=== PATIENT | female | born 1960 | race Caucasian/White ===

== ENCOUNTER 2017-03-28 19:04 | Emergency (ER) | payer BC ==
[2014-08-09 06:16] VITALS: BMI 32.2
[~2017-03-28 19:04] MED LIST: ALLEGRA-D1 TAB.SR . PO; GABAPENTIN100 MG PO; IBUPROFEN800 MG PO; LISINOPRIL-HCTZ1 T11 PO; MULTIPLE VITAMI1 TA1 PO; OMEGA-3100 MG PO; PRILOSEC20 MG PO; ULTRAM50 MG PO; VALIUM5 MG PO; VITAMIN C1000 MG PO; WELLBUTRIN SR150 MG PO
[2017-03-28 20:06] LABS: BASOPHILS 0.4 % (0-2); EOSINOPHILS 1.9 % (0-7); HEMATOCRIT 38.6 % (36.0-48.0); HEMOGLOBIN 12.5 g/dL (12-16); IMMATURE GRANULOCYTES 0.3 % (0-5); LYMPHOCYTES 36.9 % (15-50); MCH 29.5 pg (26.0-34.0); MCHC 32.4 g/dL (31.0-37.0); MEAN PLATELET VOLUME 9.4 fL (7.4-10.4); MONOCYTES 7.2 % (2-11); NEUTROPHILS 53.3 % (40-80); PLATELET COUNT 282 10x3/uL (130-400); RBC 4.24 10x6/uL (4.00-5.40); RDW 12.9 % (11.5-14.5); WBC 10.3 10x3/uL (4.8-10.8)
[2017-03-28 20:21] LABS: ALBUMIN 3.4 g/dL (3.4-5.0); ALKALINE PHOSPHATASE 126 U/L (46-116); ALT (SGPT) 33 U/L (10-68); BILIRUBIN - TOTAL 0.48 mg/dL (0.2-1.3); CALC OSMOLALITY 283 mosm/kg (275-300); CALCIUM 9.9 mg/dL (8.5-10.1); CARBON DIOXIDE 29.2 mmol/L (21.0-32.0); CHLORIDE - SERUM 106 mmol/L (98-107); CREATININE - SERUM 0.8 mg/dL (0.6-1.3); GLUCOSE 97 mg/dL (74-106); POTASSIUM - SERUM 4.1 mmol/L (3.5-5.1); PROTEIN - SERUM 7.5 g/dL (6.4-8.2); SODIUM 143 mmol/L (136-145); UREA NITROGEN 9 mg/dL (7-18); eGFR NON AFRICAN AMERICAN 78 mL/min (90-120)
[2017-03-28 20:21] LABS: APPEARANCE CLEAR (CLEAR); BILIRUBIN NEGATIVE (NEGATIVE); COLOR YELLOW (YELLOW); GLUCOSE NEGATIVE (NEGATIVE); KETONE NEGATIVE (NEGATIVE); NITRITE NEGATIVE (NEGATIVE); PROTEIN NEGATIVE (NEGATIVE); SPECIFIC GRAVITY 1.015 (1.005-1.020); UROBILINOGEN NORMAL (NORMAL)
[2017-03-28 20:24] LABS: BACTERIA FEW /hpf (NONE SEEN); EPITHELIAL CELLS 0-5 /hpf (0-5); RED CELLS - URINE 0-5 /hpf (0-5)
[2017-03-28 20:25] LABS: CALCIUM OXALATE CRYSTALS 0-5 /hpf (NONE SEEN)
== END 2017-03-28 22:06 | disposition home or self-care (01) ==
LOC: D.ER 19:04
PROVIDERS: Emergency Medicine
DX: N39.0 Urinary tract infection, site not specified (principal); J06.9 Acute upper respiratory infection, unspecified; K21.9 Gastro-esophageal reflux disease without esophagitis

== ENCOUNTER 2017-06-02 19:15 | Emergency (ER) | payer BC ==
[2014-08-09 06:16] VITALS: BMI 32.2
[2017-06-02 20:48] LABS: APPEARANCE CLEAR (CLEAR); BILIRUBIN NEGATIVE (NEGATIVE); COLOR YELLOW (YELLOW); GLUCOSE NEGATIVE (NEGATIVE); KETONE NEGATIVE (NEGATIVE); NITRITE NEGATIVE (NEGATIVE); PROTEIN NEGATIVE (NEGATIVE); UROBILINOGEN NORMAL (NORMAL)
[2017-06-02 20:53] LABS: BACTERIA FEW /hpf (NONE SEEN); EPITHELIAL CELLS 0-5 /hpf (0-5); RED CELLS - URINE 0-5 /hpf (0-5)
== END 2017-06-02 21:10 | disposition home or self-care (01) ==
LOC: D.ER 19:15
PROVIDERS: Emergency Medicine
DX: M54.5 Low back pain (principal); M62.838 Other muscle spasm; N39.0 Urinary tract infection, site not specified; K21.9 Gastro-esophageal reflux disease without esophagitis

== ENCOUNTER 2019-05-28 17:28 | Emergency (ER) | payer BC ==
[2019-05-28 17:32] VITALS: Ht 167.6 cm
[2019-05-28] MEDS ORDERED: PROTONIX40 MG PO (17:33)
[2019-05-28] MEDS ORDERED: CELEXA40 MG PO (17:34)
[2019-05-28] MEDS ORDERED: CECLOR250 MG PO (17:34)
[2019-05-28 18:14] LABS: APPEARANCE CLEAR (CLEAR); BILIRUBIN NEGATIVE (NEGATIVE); COLOR YELLOW (YELLOW); GLUCOSE NEGATIVE (NEGATIVE); KETONE NEGATIVE (NEGATIVE); NITRITE NEGATIVE (NEGATIVE); PROTEIN 1+ mg/dL (NEGATIVE); UROBILINOGEN NORMAL (NORMAL)
[2019-05-28 18:16] LABS: BACTERIA FEW /hpf (NEGATIVE); EPITHELIAL CELLS 0-5 /hpf (0-5); RED CELLS - URINE OCC /hpf (0-5)
[2019-05-28 18:31] LABS: BASOPHILS 0.2 % (0-2); EOSINOPHILS 2.1 % (0-7); HEMATOCRIT 40.2 % (36.0-48.0); HEMOGLOBIN 12.7 g/dL (12-16); IMMATURE GRANULOCYTES 0.3 % (0-5); LYMPHOCYTES 21.5 % (15-50); MCH 28.8 pg (26.0-34.0); MCHC 31.6 g/dL (31.0-37.0); MCV 91.2 fL (80.0-100.0); MEAN PLATELET VOLUME 9.1 fL (7.4-10.4); MONOCYTES 7.1 % (2-11); NEUTROPHILS 68.8 % (40-80); PLATELET COUNT 327 10x3/uL (130-400); RBC 4.41 10x6/uL (4.00-5.40); RDW 13.2 % (11.5-14.5); WBC 15.5 10x3/uL (4.8-10.8)
[2019-05-28 18:44] LABS: CALC OSMOLALITY 278 mosm/kg (275-300); CALCIUM 10.2 mg/dL (8.5-10.1); CARBON DIOXIDE 29.9 mmol/L (21.0-32.0); CHLORIDE - SERUM 104 mmol/L (98-107); CREATININE - SERUM 0.8 mg/dL (0.6-1.3); GLUCOSE 99 mg/dL (74-106); POTASSIUM - SERUM 3.9 mmol/L (3.5-5.1); SODIUM 139 mmol/L (136-145); UREA NITROGEN 15 mg/dL (7-18); eGFR NON AFRICAN AMERICAN 77 mL/min (90-120)
[2019-05-28 18:50] LABS: ALBUMIN 3.5 g/dL (3.4-5.0); ALKALINE PHOSPHATASE 107 U/L (46-116); ALT (SGPT) 21 U/L (10-68); BILIRUBIN - TOTAL 0.35 mg/dL (0.2-1.3); PROTEIN - SERUM 7.5 g/dL (6.4-8.2)
[2019-05-28] MEDS ORDERED: PROBIOTIC1 EAC1 PO (21:14)
[2019-05-28] MEDS ORDERED: FLAGYL500 MG PO (21:14)
[2019-05-28] MEDS ORDERED: LEVOFLOXACIN500 MG PO (21:14)
[2019-05-28] MEDS ORDERED: TORADOL10 MG PO (21:15)
[2019-05-28 22:11] VITALS: BP 140/60
== END 2019-05-28 22:11 | disposition home or self-care (01) ==
LOC: D.ER 17:28
PROVIDERS: Family Medicine
DX: K57.92 Diverticulitis of intestine, part unspecified, without perforation or abscess without bleeding (principal); N39.0 Urinary tract infection, site not specified; I10 Essential (primary) hypertension

== ENCOUNTER 2019-09-02 16:59 | Emergency (ER) | payer BC ==
[~2019-09-02] VITALS: Ht 167.6 cm; Wt 98.6 kg
[~2019-09-02 16:59] MED LIST changes: +CECLOR250 MG PO; +CELEXA40 MG PO; +FLAGYL500 MG PO; +LEVOFLOXACIN500 MG PO; +PROBIOTIC1 EAC1 PO; +PROTONIX40 MG PO; +TORADOL10 MG PO
[2019-09-02 17:04] VITALS: Ht 167.6 cm; Wt 98.6 kg
[2019-09-02 17:17] LABS: BILIRUBIN NEGATIVE (NEGATIVE); GLUCOSE NEGATIVE (NEGATIVE); KETONE NEGATIVE (NEGATIVE); NITRITE NEGATIVE (NEGATIVE); UROBILINOGEN NORMAL (NORMAL)
[2019-09-02 17:20] LABS: EPITHELIAL CELLS 0-5 /hpf (0-5); RED CELLS - URINE 25-50 /hpf (0-5)
[2019-09-02 17:21] LABS: BACTERIA MODERATE /hpf (NEGATIVE); YEAST RARE /hpf (NONE SEEN)
[2019-09-02 17:26] LABS: BASOPHILS 0.2 % (0-2); EOSINOPHILS 2.4 % (0-7); HEMATOCRIT 43.5 % (36.0-48.0); HEMOGLOBIN 13.6 g/dL (12-16); IMMATURE GRANULOCYTES 0.2 % (0-5); MCH 29.2 pg (26.0-34.0); MCHC 31.3 g/dL (31.0-37.0); MCV 93.3 fL (80.0-100.0); MEAN PLATELET VOLUME 9.5 fL (7.4-10.4); MONOCYTES 6.3 % (2-11); NEUTROPHILS 62.9 % (40-80); PLATELET COUNT 338 10x3/uL (130-400); RBC 4.66 10x6/uL (4.00-5.40); RDW 13.3 % (11.5-14.5); WBC 12.1 10x3/uL (4.8-10.8)
[2019-09-02 17:53] LABS: ANION GAP 9.2 mmol/L (8-16); CALCIUM 10.1 mg/dL (8.5-10.1); CARBON DIOXIDE 31.6 mmol/L (21.0-32.0); CREATININE - SERUM 0.9 mg/dL (0.6-1.3); POTASSIUM - SERUM 3.8 mmol/L (3.5-5.1)
[2019-09-02 18:00] LABS: ALBUMIN 3.8 g/dL (3.4-5.0); BILIRUBIN - TOTAL 0.35 mg/dL (0.2-1.3); PROTEIN - SERUM 7.9 g/dL (6.4-8.2)
[2019-09-02 20:20] VITALS: BP 184/76
== END 2019-09-02 20:20 | disposition other institution (70) ==
LOC: D.ER 16:59
PROVIDERS: Emergency Medicine
DX: N20.0 Calculus of kidney (principal); N13.30 Unspecified hydronephrosis; N39.0 Urinary tract infection, site not specified; I10 Essential (primary) hypertension; K21.9 Gastro-esophageal reflux disease without esophagitis

== ENCOUNTER 2020-02-09 20:02 | Inpatient (IN) | payer BC ==
[~2020-02-09] VITALS: Ht 167.6 cm; Wt 95.7 kg
[2020-02-09 20:43] LABS: BASOPHILS 0.2 % (0-2); EOSINOPHILS 0 % (0-7); HEMATOCRIT 41.8 % (36.0-48.0); IMMATURE GRANULOCYTES 0.3 % (0-5); LYMPHOCYTES 21.4 % (15-50); MCH 28.3 pg (26.0-34.0); MCHC 31.1 g/dL (31.0-37.0); MCV 90.9 fL (80.0-100.0); MEAN PLATELET VOLUME 9.1 fL (7.4-10.4); MONOCYTES 5.7 % (2-11); NEUTROPHILS 72.4 % (40-80); RDW 13.5 % (11.5-14.5); WBC 6.2 10x3/uL (4.8-10.8)
[2020-02-09 20:57] LABS: CALC OSMOLALITY 275 mosm/kg (275-300); CALCIUM 8.5 mg/dL (8.5-10.1); CHLORIDE - SERUM 102 mmol/L (98-107); CREATININE - SERUM 1.1 mg/dL (0.6-1.3); GLUCOSE 101 mg/dL (74-106); PLATELET COUNT 209 10x3/uL (130-400); POTASSIUM - SERUM 3.7 mmol/L (3.5-5.1); SODIUM 137 mmol/L (136-145); UREA NITROGEN 17 mg/dL (7-18); eGFR NON AFRICAN AMERICAN 53 mL/min (90-120)
[2020-02-09 21:01] LABS: APTT 30.9 SECONDS (22.8-39.4); INR 1.03 (0.85-1.17); PROTIME 13.4 SECONDS (11.6-15.0)
[2020-02-09 21:13] LABS: ALBUMIN 3.1 g/dL (3.4-5.0); ALKALINE PHOSPHATASE 68 U/L (30-120); ALT (SGPT) 20 U/L (10-68); BILIRUBIN - TOTAL 0.52 mg/dL (0.2-1.3); CREATINE KINASE 41 UL (21-215); PRO BNP 27 pg/mL (0-125); PROTEIN - SERUM 6.8 g/dL (6.4-8.2); TROPONIN-I < 0.017 ng/mL (0.000-0.060)
[2020-02-09 21:27] VITALS: BP 107/46
--- NOTE | 2020-02-09 21:45 | NUR ---
PT'S IV ROCEPHIN FINISHED AT THIS TIME.
[2020-02-09 22:52] VITALS: BP 124/69; BMI 35.1
[2020-02-09 23:00] VITALS: BP 110/67
--- NOTE | 2020-02-09 23:00 | NUR ---
2229-ARRIVED VIA STRECTHER WITH ER NURSE. ADMISSION COMPLETED. O2 AT 8 L HIGH FLOW NC. SAT AT 88%. INCREASED O2 TO 10 L, SAT CAME UP TO 92%.
[2020-02-10] VITALS (24 sets, daily range): BP systolic 107–148; BP diastolic 50–88; Ht 167.6 cm; Wt 95.7 kg
[2020-02-10 03:58] LABS: BASOPHILS 0 % (0-2); EOSINOPHILS 0 % (0-7); HEMATOCRIT 38.8 % (36.0-48.0); HEMOGLOBIN 12.2 g/dL (12-16); LYMPHOCYTES 21.3 % (15-50); MCH 28.4 pg (26.0-34.0); MCHC 31.4 g/dL (31.0-37.0); MCV 90.4 fL (80.0-100.0); MONOCYTES 1.9 % (2-11); NEUTROPHILS 76.8 % (40-80); PLATELET COUNT 221 10x3/uL (130-400); RBC 4.29 10x6/uL (4.00-5.40); RDW 13.5 % (11.5-14.5); WBC 4.8 10x3/uL (4.8-10.8)
[2020-02-10] MEDS ORDERED: PEPCID40 MG PO (04:45)
[2020-02-10 04:48] LABS: ALBUMIN 2.7 g/dL (3.4-5.0); ANION GAP 11.5 mmol/L (8-16); BILIRUBIN - DIRECT 0.13 mg/dL (0.00-0.30); BILIRUBIN - INDIRECT 0.26 mg/dL (0.00-1.00); BILIRUBIN - TOTAL 0.39 mg/dL (0.2-1.3); CALCIUM 9.1 mg/dL (8.5-10.1); CARBON DIOXIDE 28.3 mmol/L (21.0-32.0); MAGNESIUM - SERUM 2.4 mg/dL (1.8-2.4); PHOSPHOROUS 3.1 mg/dL (2.5-4.9); POTASSIUM - SERUM 3.8 mmol/L (3.5-5.1); PROTEIN - SERUM 6.8 g/dL (6.4-8.2)
--- NOTE | 2020-02-10 06:15 | NUR ---
PIV PULLED OUT BY PATIENT. TIP INTACT. NEW PIV 20 G TO UPPER LEFT ARM X 1 ATTEMPT.
[2020-02-10 10:12] LABS: C-REACTIVE PROTEIN 11.8 mg/dL (0.0-0.9)
--- NOTE | 2020-02-10 18:43 | NUR ---
PATIENT RECEIVED 2 UNITS COVID PLASMA. TODAY. PATIENT DOES DE SAT WHEN SHE EATS, MOVES OR TALKS. DOWN TO 85%. WILL RECOOP TO 90%. PATIENT STILL ON 100% VAPO THERM. STATES SHE IS BREATHING BETTER. ATE ONE JELLO. OFERED A REGULAR DIET, STATES SHE CAN NOT EAT RIGHT NOW.
[2020-02-11] VITALS (24 sets, daily range): BP systolic 104–153; BP diastolic 52–79
--- NOTE | 2020-02-11 00:43 | NUR ---
2129- PATIENT DESAT TO 87-88%. C/O FEELING "TIRED" AND "WORN OUT." OBTAIN ABG. NOTIFIED DR. YU AND NEW ORDERS REC'D FOR BIPAP. PLACED ON BIPAP. CALLED , SERGEI GREEN, AND UPDATE HIM. LEFT MESSAGE FOR ELANA GREEN, SON, BUT NO RETURN CALL.
--- NOTE | 2020-02-11 05:07 | NUR ---
0430- SON, ELANA, CALLED FOR UPDATE. UPDATE GIVEN
[2020-02-11 06:05] LABS: BASOPHILS 0 % (0-2); EOSINOPHILS 0 % (0-7); HEMATOCRIT 37.7 % (36.0-48.0); HEMOGLOBIN 11.7 g/dL (12-16); IMMATURE GRANULOCYTES 0.3 % (0-5); LYMPHOCYTES 13.3 % (15-50); MCV 90.2 fL (80.0-100.0); MEAN PLATELET VOLUME 9.6 fL (7.4-10.4); MONOCYTES 4.9 % (2-11); NEUTROPHILS 81.5 % (40-80); RBC 4.18 10x6/uL (4.00-5.40); RDW 13.4 % (11.5-14.5)
[2020-02-11 06:10] LABS: PLATELET COUNT 271 10x3/uL (130-400); WBC 10.2 10x3/uL (4.8-10.8)
[2020-02-11 06:29] LABS: ALBUMIN 2.7 g/dL (3.4-5.0); ANION GAP 9.5 mmol/L (8-16); BILIRUBIN - DIRECT 0.13 mg/dL (0.00-0.30); BILIRUBIN - INDIRECT 0.3 mg/dL (0.00-1.00); BILIRUBIN - TOTAL 0.43 mg/dL (0.2-1.3); CALCIUM 9.5 mg/dL (8.5-10.1); CARBON DIOXIDE 28.9 mmol/L (21.0-32.0); CREATININE - SERUM 0.9 mg/dL (0.6-1.3); MAGNESIUM - SERUM 2.1 mg/dL (1.8-2.4); PHOSPHOROUS 2.8 mg/dL (2.5-4.9); POTASSIUM - SERUM 3.4 mmol/L (3.5-5.1); PROTEIN - SERUM 6.7 g/dL (6.4-8.2)
[2020-02-11 07:02] LABS: BILIRUBIN NEGATIVE (NEGATIVE); KETONE NEGATIVE (NEGATIVE); NITRITE NEGATIVE (NEGATIVE); UROBILINOGEN NORMAL (NORMAL)
[2020-02-11 07:03] LABS: BACTERIA FEW /hpf (NONE SEEN); WHITE CELLS - URINE 0-5 /hpf (0-5); YEAST <1+ /hpf (NONE SEEN)
--- NOTE | 2020-02-11 14:01 | NUR ---
DR. YU NOTIFIED OF BLOOD GAS RESULTS ORDERS RECEIVED TO INTUBATE, ALLISON CENTRAL LINE. SON DISCUSS WITH PATIENT
--- NOTE | 2020-02-11 14:40 | NUR ---
NOTIFIED OF BLOOD GAS RESULTS. DR. GERARDO HERE AFTER CONSENT RECEIVED FROM PATIENT PATIENT INTUBATED ANDPLACED ON VENT. PULSE OX IN 70'S AFTER INTUBATION. DR. YU NOTIFIED. RESP THERAPY 40SEC OF 40 PEEP, AND 30 SEC OF 30 PEEP TRYING TO INCREASE PULSE OX. PULSE DID COME UP INTO 90'S BUT RETURN TO 80'S. DR. GERARDO INSERTED CENTRAL LINE LEFT SUBCLAVIAN WITH MINIMAL DIFFICULTY. PLACEMENT CONFIRMED WITH CHEST X-RAY. ALLISON INSERTED LEFT RADIAL GOOD WAVE FORM. PRESSURE FAIRLY CLOSE TO CUFF. OG INSERTED WITHOUT DIFFICULTY, CONFIRMED PLACEMENT PER CHEST X-RAY.
--- NOTE | 2020-02-11 15:21 | NUR ---
STAT CHEST XR ORDERED PER DR GERARDO FOR INTUBATION.
--- NOTE | 2020-02-11 16:00 | NUR ---
CALLED WITH BLOOD GAS RESULTS. PATIENT STILL REQUURING 30 SEC OF 30 PEEP TO KEEP PULSE OX ABOVE 80%. FENTANYL GTT AT 200 MCG AND HOUR. DIPRIVAN AT 40 MCG/KG/MIN. HEAD OF BED ELEVATED 45 DEGREES. BILATERAL LUNGS EQUAL BUT CONGESTED. SON ELANA GIVEN UPDATE. NEW ORDERS RECEIVED FOR DECADRON AND LOVENOX. DR. YU TALKED WITH RESP THERAPY
--- NOTE | 2020-02-11 17:30 | NUR ---
CONTINUE TO HAVE LOW PULSE OX, BLOOD GAS AND CHEST X-RAY RESULTS CALLED TO DR. YU. ORDERS FOR VECURONIUM GTT RECEIVED AND LASIX. PHARMACY CALLED FOR CONCENTRATION MIX. VECURONIUM STARTED AT 1 MCG/KG/MIN. NERUO SENSOR APPLIED, 1 OF 4 AND 2 OUT OF 4 TWITCHES FROM EYES RECEIVED.
--- NOTE | 2020-02-11 18:30 | NUR ---
3 OUT OF 4 TWITCHES AND 2 OUR OF TWITCHES RECEIVED. PATIENT VECURONIUM TURNED UP TO 1.5 MCG/KG/MIN. PATIENT PULSE UP 88-89%. SON ELANA HAS TALKED WITH DR. YU. PATIENT URINE 250 ML OUT LAST HOUR.
--- NOTE | 2020-02-11 19:33 | NUR ---
DR. YU CALLED. UPDATE GIVEN
[2020-02-12] VITALS (23 sets, daily range): BP systolic 98–137; BP diastolic 51–90
--- NOTE | 2020-02-12 00:57 | NUR ---
DR. YU CALLED FOR UPDATE WITH NEW ORDERS APPROX [address] YU NOTIFIED OF RESULTS. NEW ORDERS REC'D. VECURONIUM TITRATED DOWN 2 TIMES (SEE FLOWSHEET) WITH TRAIN OF FOUR AT 0/4 BOTH TIMES
[2020-02-12 06:41] LABS: BASOPHILS 0.2 % (0-2); EOSINOPHILS 0.2 % (0-7); HEMATOCRIT 36.6 % (36.0-48.0); HEMOGLOBIN 11.1 g/dL (12-16); IMMATURE GRANULOCYTES 0.6 % (0-5); LYMPHOCYTES 11.5 % (15-50); MCHC 30.3 g/dL (31.0-37.0); MEAN PLATELET VOLUME 9.5 fL (7.4-10.4); MONOCYTES 7.4 % (2-11); NEUTROPHILS 80.1 % (40-80); PLATELET COUNT 290 10x3/uL (130-400); RBC 3.97 10x6/uL (4.00-5.40); RDW 13.5 % (11.5-14.5)
[2020-02-12 06:45] LABS: ALBUMIN 2.6 g/dL (3.4-5.0); BILIRUBIN - DIRECT 0.2 mg/dL (0.00-0.30); BILIRUBIN - INDIRECT 0.27 mg/dL (0.00-1.00); BILIRUBIN - TOTAL 0.47 mg/dL (0.2-1.3); C-REACTIVE PROTEIN 7.1 mg/dL (0.0-0.9); CALCIUM 9.1 mg/dL (8.5-10.1); CARBON DIOXIDE 27.9 mmol/L (21.0-32.0); MAGNESIUM - SERUM 2.5 mg/dL (1.8-2.4); POTASSIUM - SERUM 3.9 mmol/L (3.5-5.1); PROTEIN - SERUM 6.6 g/dL (6.4-8.2)
[2020-02-12 06:47] LABS: PHOSPHOROUS 4.3 mg/dL (2.5-4.9)
[2020-02-12 07:07] LABS: MCV 92.2 fL (80.0-100.0); WBC 6.5 10x3/uL (4.8-10.8)
--- NOTE | 2020-02-12 10:57 | NUR ---
MICHELLE SAEZ [phone] [facility] OKAYED WITH ARABELLA TRAVIS TO SPEAK WITH MRS SAEZ AND GIVE HER INFORMATION. UPDATED ON PT CONDITION AND DATE OF ADMISSION. ANSWERED QUESTIONS. WILL CONTINUE TO MONITOR
--- NOTE | 2020-02-12 13:20 | NUR ---
Nutrition follow-up: Pt remains intubated; propofol infusing @ 24.9 ml/hr Vecuronium in use but dose titrating down Labs reviewed Wt: 212# OGT in place; pt remains NPO at this time Recommend starting Pulmocare @ 25 ml/hr with increase to goal rate of 40 ml/hr with 25 ml H2O flush q hour RDN following.
[2020-02-12 20:58] LABS: CKMB 3.5 U/L (0.0-3.6); CREATINE KINASE 343 UL (21-215)
[2020-02-12 20:59] LABS: TROPONIN-I < 0.017 ng/mL (0.000-0.060)
[2020-02-13] VITALS (24 sets, daily range): BP systolic 90–144; BP diastolic 34–78
[2020-02-13 06:10] LABS: BASOPHILS 0.1 % (0-2); EOSINOPHILS 0 % (0-7); HEMOGLOBIN 10.9 g/dL (12-16); IMMATURE GRANULOCYTES 0.6 % (0-5); LYMPHOCYTES 13.7 % (15-50); MCH 27.7 pg (26.0-34.0); MCHC 30.3 g/dL (31.0-37.0); MCV 91.6 fL (80.0-100.0); MEAN PLATELET VOLUME 9.9 fL (7.4-10.4); NEUTROPHILS 78.6 % (40-80); PLATELET COUNT 315 10x3/uL (130-400); RBC 3.93 10x6/uL (4.00-5.40); RDW 13.5 % (11.5-14.5); WBC 6.8 10x3/uL (4.8-10.8)
[2020-02-13 06:37] LABS: ALBUMIN 2.4 g/dL (3.4-5.0); ALKALINE PHOSPHATASE 54 U/L (30-120); BILIRUBIN - INDIRECT 0.28 mg/dL (0.00-1.00); BILIRUBIN - TOTAL 0.38 mg/dL (0.2-1.3); CALC OSMOLALITY 293 mosm/kg (275-300); CALCIUM 9.2 mg/dL (8.5-10.1); CARBON DIOXIDE 29.4 mmol/L (21.0-32.0); CHLORIDE - SERUM 107 mmol/L (98-107); CREATININE - SERUM 0.8 mg/dL (0.6-1.3); GLUCOSE 164 mg/dL (74-106); MAGNESIUM - SERUM 2.7 mg/dL (1.8-2.4); PROTEIN - SERUM 6.3 g/dL (6.4-8.2); SODIUM 143 mmol/L (136-145); UREA NITROGEN 26 mg/dL (7-18); eGFR NON AFRICAN AMERICAN 77 mL/min (90-120)
[2020-02-13 06:42] LABS: ALT (SGPT) 16 U/L (10-68); PHOSPHOROUS 3.2 mg/dL (2.5-4.9)
--- NOTE | 2020-02-13 10:30 | NUR ---
STARTED TUBE FEEDINGS ON PT. PULMOCARE AT 10CC/HR. WILL CHECK RESIDUALS IN 6 HOURS.
--- NOTE | 2020-02-13 17:45 | NUR ---
TUBE FEEDINGS STOPPED DUE TO HIGH RESIDUALS. WILL CONTINUE TO MONITOR
[2020-02-14] VITALS (24 sets, daily range): BP systolic 101–142; BP diastolic 43–72
[2020-02-14 05:08] LABS: ALBUMIN 2.2 g/dL (3.4-5.0); ALKALINE PHOSPHATASE 49 U/L (30-120); BILIRUBIN - TOTAL 0.28 mg/dL (0.2-1.3); CALC OSMOLALITY 292 mosm/kg (275-300); CALCIUM 8.8 mg/dL (8.5-10.1); CARBON DIOXIDE 28.5 mmol/L (21.0-32.0); CHLORIDE - SERUM 109 mmol/L (98-107); CREATININE - SERUM 0.7 mg/dL (0.6-1.3); GLUCOSE 162 mg/dL (74-106); MAGNESIUM - SERUM 2.5 mg/dL (1.8-2.4); PHOSPHOROUS 2.8 mg/dL (2.5-4.9); POTASSIUM - SERUM 4.2 mmol/L (3.5-5.1); PROTEIN - SERUM 5.9 g/dL (6.4-8.2); SODIUM 143 mmol/L (136-145); UREA NITROGEN 24 mg/dL (7-18); eGFR NON AFRICAN AMERICAN 90 mL/min (90-120)
[2020-02-14 05:20] LABS: ALT (SGPT) 31 U/L (10-68)
[2020-02-14 05:45] LABS: BASOPHILS 0.2 % (0-2); EOSINOPHILS 0 % (0-7); HEMATOCRIT 34.8 % (36.0-48.0); HEMOGLOBIN 10.6 g/dL (12-16); IMMATURE GRANULOCYTES 0.8 % (0-5); LYMPHOCYTES 7.8 % (15-50); MCHC 30.5 g/dL (31.0-37.0); MCV 92.1 fL (80.0-100.0); MONOCYTES 7.1 % (2-11); NEUTROPHILS 84.1 % (40-80); PLATELET COUNT 320 10x3/uL (130-400); RBC 3.78 10x6/uL (4.00-5.40); RDW 13.6 % (11.5-14.5)
[2020-02-14 05:46] LABS: WBC 9.9 10x3/uL (4.8-10.8)
--- NOTE | 2020-02-14 07:58 | EC ---
PATIENT:DENNIS GREEN DATE OF SERVICE: 02/09/20 SEX: F MEDICAL RECORD: [id number] DATE OF : 56 LOCATION:[place] [address] AGE OF PATIENT: 59 ADMISSION DATE: 02/09/20 REFERRING PHYSICIAN: INTERPRETING PHYSICIAN: BRANDEE RANGEL MD ECHOCARDIOGRAM REPORT ECHO CHARGES 4 ECHO COMPLETE Date: 02/11/20 CLINICAL DIAGNOSIS: ARDS ECHOCARDIOGRAPHIC MEASUREMENTS (adult normal given) AC root (d.<3.7cm) 3.2 cm LV Septum d (<1.2 cm> 1.6 cm Valve Excursion 1.8 cm LV Septum (systole) 2.4 cm Left Atria (s.<4.0cm> 4.3 cm LVPW d(<1.2cm) 1.5 cm RV (d.<2.3cm) 2.8 cm LVPW (sytole) 2.0 cm LV diastole(<5.6CM) 4.5 cm MV E-F(>70mm/sec) cm LV systole 2.0 cm LVOT Diameter 1.9 cm MV exc.(>10mm) cm Est.ejection fraction (50-75%) % DOPPLER: LVIT cm/sec A 43.0 cm/sec E 62.0 cm/sec LA cm/sec RVSP 31.0 mmHg LVOT 137 cm/sec AOP1/2T m/s Asc. Ao 174 cm/sec RVOT 61.0 cm/sec RA cm/sec PA 114 cm/sec AV Gradient Peak 12.1 mmHg AV Mean 5.6 mmHg AV Area 2.2 cm MV Gradient Peak 2.1 mmHg MV Mean 0.67 mmHg MV Area cm COMMENTS: Grinder Operator Surface Tool: Nakul RENEEOE Demolitionist: 3 Dr. Tejada TAPE# PACS Pericardial Effusion N DATE OF SERVICE: Adequate 2D, color flow imaging, spectral Doppler, and M-Mode. LVH is present. LV internal dimension is normal. Wall motion is normal. EF is greater than or equal to 55%. Aortic valve is tricuspid. No evidence of stenosis by Doppler interrogation. Left atrium is dilated at 4.3 cm. Mitral valve shows no prolapse. Trivial MR. Right-sided chambers are grossly normal. Trivial TR. ECHOCARDIOGRAM REPORT [id number] DENNIS GREEN TRANSINT:[id number] Voice Confirmation ID: [id number] DOCUMENT ID: [id number] BRANDEE RANGEL MD at 0758 CC: [id number] DICTATION DATE: 02/12/20 1014 EARTH MOVING MACHINE OPERATOR: 02/12/20 1116 ADM IN [facility] [address] [place] [id number]
--- NOTE | 2020-02-14 13:33 | NUR ---
Nutrition follow-up: Pt intubated, sedated with propofol @ 14.9 ml/hr and vecuronium Pulmocare on hold 2/2 high residuals with no BM per Imelda RN Labs reviewed Wt: 223# Recommend starting Reglan and restarting TF @ 10 ml/hr with very slow increase to goal rate of 40 ml/hr May need to consider starting ProcalAmine PPN @ 75 ml/hr along with trickle tube feeds while pt on vecuronium RDN following.
[2020-02-15] VITALS (24 sets, daily range): BP systolic 96–134; BP diastolic 42–69
[2020-02-15 03:47] LABS: BASOPHILS 0.1 % (0-2); EOSINOPHILS 0 % (0-7); HEMATOCRIT 34.3 % (36.0-48.0); HEMOGLOBIN 10.4 g/dL (12-16); IMMATURE GRANULOCYTES 0.9 % (0-5); LYMPHOCYTES 5.5 % (15-50); MCH 27.8 pg (26.0-34.0); MCHC 30.3 g/dL (31.0-37.0); MCV 91.7 fL (80.0-100.0); MEAN PLATELET VOLUME 9.6 fL (7.4-10.4); MONOCYTES 7.4 % (2-11); NEUTROPHILS 86.1 % (40-80); PLATELET COUNT 337 10x3/uL (130-400); RBC 3.74 10x6/uL (4.00-5.40); RDW 13.2 % (11.5-14.5); WBC 11.3 10x3/uL (4.8-10.8)
[2020-02-15 04:00] LABS: CALC OSMOLALITY 289 mosm/kg (275-300); CALCIUM 8.9 mg/dL (8.5-10.1); CARBON DIOXIDE 31.2 mmol/L (21.0-32.0); CHLORIDE - SERUM 105 mmol/L (98-107); CREATININE - SERUM 0.6 mg/dL (0.6-1.3); GLUCOSE 167 mg/dL (74-106); POTASSIUM - SERUM 4.1 mmol/L (3.5-5.1); SODIUM 142 mmol/L (136-145); UREA NITROGEN 21 mg/dL (7-18); eGFR NON AFRICAN AMERICAN > 90 mL/min (90-120)
--- NOTE | 2020-02-15 06:38 | NUR ---
Pt resting in bed with no acute distress noted. Pt was turned and positioned for comfort throughout the night.
[2020-02-16] VITALS (23 sets, daily range): BP systolic 97–142; BP diastolic 39–63
[2020-02-16 06:23] LABS: ALKALINE PHOSPHATASE 46 U/L (30-120); ALT (SGPT) 28 U/L (10-68); BILIRUBIN - TOTAL 0.59 mg/dL (0.2-1.3); CALC OSMOLALITY 286 mosm/kg (275-300); CALCIUM 9.1 mg/dL (8.5-10.1); CARBON DIOXIDE 30.2 mmol/L (21.0-32.0); CHLORIDE - SERUM 106 mmol/L (98-107); CREATININE - SERUM 0.7 mg/dL (0.6-1.3); GLUCOSE 162 mg/dL (74-106); PROTEIN - SERUM 5.7 g/dL (6.4-8.2); SODIUM 140 mmol/L (136-145); UREA NITROGEN 24 mg/dL (7-18); eGFR NON AFRICAN AMERICAN 90 mL/min (90-120)
[2020-02-16 06:58] LABS: HEMATOCRIT 31.6 % (36.0-48.0); HEMOGLOBIN 9.9 g/dL (12-16); LYMPHOCYTES 4.3 % (15-50); MCH 28.6 pg (26.0-34.0); MCHC 31.3 g/dL (31.0-37.0); MCV 91.3 fL (80.0-100.0); NEUTROPHILS 91.6 % (40-80); PLATELET COUNT 328 10x3/uL (130-400); RBC 3.46 10x6/uL (4.00-5.40); RDW 12.2 % (11.5-14.5); WBC 12.1 10x3/uL (4.8-10.8)
--- NOTE | 2020-02-16 09:10 | NUR ---
INCREASE 02 80%
--- NOTE | 2020-02-16 09:55 | NUR ---
spoke with family
--- NOTE | 2020-02-16 11:01 | NUR ---
Nutrition follow-up: Now in ICU from [facility] Pt in bed with BIPAP in place Diet: ADA consistent CHO; po intake poor at this time Labs reviewed Wt: 170# Will need nutrition support started within 24 hours if po intake remains poor. RDN following.
--- NOTE | 2020-02-16 11:04 | NUR ---
Nutrition follow-up: Remains intubated, sedated with propofol @ 19.9 ml/hr Vecuronium still in use Pulmocare @ 10 ml/hr; reglan started Still with no BM per nurse Labs reviewed Wt: 222# RDN following.
--- NOTE | 2020-02-16 11:41 | NUR ---
family called. passcode provided
--- NOTE | 2020-02-16 12:13 | NUR ---
stop vanc per dr garcia
--- NOTE | 2020-02-16 16:10 | MORECARE ---
CASE MANAGEMENT DISCHARGE SUMMARY PATIENT: DENNIS KHAN UNIT: [id number] ADM DATE: 02/09/20 AGE: 59 : 56 SEX: F ROOM/BED: D.2314 AUTHOR: RICKY,DOC PHYSICIAN: REFERRING PHYSICIAN: URBANO EDDY DO DATE OF SERVICE: 02/16/20 Discharge Plan Patient Name: DENNIS KHAN Facility: [facility]:[place] : 1960 Planned Disposition: Anticipated Discharge Date: Discharge Date: Expected LOS: Initial Reviewer: [email or web address] Initial Review Date: 02/09/2020 Generated: 02/16/20 5:09 pm Comments DCP- Discharge Planning Updated by [email or web address]: Tamela Smith on 02/16/20 3:[address] CM contacted spouse, Tyrell Yoon @[phone], to discuss initial DC planning. Spouse is in agreement to proceed with the assessment. Patient is currently sedated and intubated on a mechanical vent. Per patient's spouse, patient lives independently in her home, with him. 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 Pharmacy: [facility], [place]. HHS: No. DME: None. Emergency contact: Tyrell Yoon and (son) Salazar Yoon #[phone]. Patient is Independent with all ADL's, medication management REGIONAL TRAINER. CM discussed the availability of HH, Rehab, SNF, OP Therapy, DME services. Patient would benefit from Rehab or HHS upon DC. Spouse agrees to Rehab prior to returning home, if needed. Spouse denies hospitalization within the past 30 days. Spouse denies the use of community resources REGIONAL TRAINER. Transportation at time of discharge: Spouse or son. CM will follow and assist PRN with DC needs/plans. DCPIA - Discharge Planning Initial Assessment Updated by [email or web address]: Tamela Smith on 02/16/20 4:05 pm * Is the patient Alert and Oriented? No * How many steps to enter\exit or inside your home? * PCP Unknown at present * Pharmacy [facility], [place] * Preadmission Environment Home with Family * ADLs Independent * Equipment None * Other Equipment NA * List name and contact numbers for known caregivers / representatives who currently or will assist patient after discharge: Tyrell Yoon (spouse) [phone] Salazar Khan (son) [phone] * Verbal permission to speak to the caregivers and representatives has been obtained from the patient. N/A * Community resources currently utilized None * Please name any agencies selected above. NA * Additional services required to return to the preadmission environment? Yes * Can the patient safely return to the preadmission environment? Yes * Has this patient been hospitalized within the prior 30 days at any hospital? No Patient Name: DENNIS KHAN Page [phone] at 1610 All edits/amendments must be made on the electronic document DICTATION DATE: 02/16/201609 SEISMIC PROSPECTING OBSERVER: SHELBY 02/16/20 161 RPT#: [id number] DC DATE: STATUS: ADM IN [facility] [address] [place] [address] END OF REPORT
--- NOTE | 2020-02-16 17:44 | MORECARE ---
CASE MANAGEMENT DISCHARGE SUMMARY PATIENT: DENNIS KHAN UNIT: [id number] ADM DATE: 02/09/20 AGE: 59 : 56 SEX: F ROOM/BED: D.2314 AUTHOR: RICKY,DOC PHYSICIAN: REFERRING PHYSICIAN: URBANO EDDY DO DATE OF SERVICE: 02/16/20 Discharge Plan Patient Name: DENNIS KHAN Facility: [facility]:[place] : 1960 Planned Disposition: Anticipated Discharge Date: Discharge Date: Expected LOS: Initial Reviewer: [email or web address] Initial Review Date: 02/09/2020 Generated: 02/16/20 6:44 pm Comments DCP- Discharge Planning Updated by [email or web address]: Tamela Smith on 02/16/20 3:[address] CM contacted spouse, Tyrell Yoon @[phone], to discuss initial DC planning. Spouse is in agreement to proceed with the assessment. Patient is currently sedated and intubated on a mechanical vent. Per patient's spouse, patient lives independently in her home, with him. 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 Pharmacy: [facility], [place]. HHS: No. DME: None. Emergency contact: Tyrell Yoon and (son) Salazar Yoon #[phone]. Patient is Independent with all ADL's, medication management FILM PRODUCER. CM discussed the availability of HH, Rehab, SNF, OP Therapy, DME services. Patient would benefit from Rehab or HHS upon DC. Spouse agrees to Rehab prior to returning home, if needed. Spouse denies hospitalization within the past 30 days. Spouse denies the use of community resources FILM PRODUCER. Transportation at time of discharge: Spouse or son. CM will follow and assist PRN with DC needs/plans. DCPIA - Discharge Planning Initial Assessment Updated by [email or web address]: Tamela Smith on 02/16/20 4:05 pm * Is the patient Alert and Oriented? No * How many steps to enter\exit or inside your home? * PCP Unknown at present * Pharmacy [facility], [place] * Preadmission Environment Home with Family * ADLs Independent * Equipment None * Other Equipment NA * List name and contact numbers for known caregivers / representatives who currently or will assist patient after discharge: Tyrell Yoon (spouse) [phone] Salazar Khan (son) [phone] * Verbal permission to speak to the caregivers and representatives has been obtained from the patient. N/A * Community resources currently utilized None * Please name any agencies selected above. NA * Additional services required to return to the preadmission environment? Yes * Can the patient safely return to the preadmission environment? Yes * Has this patient been hospitalized within the prior 30 days at any hospital? No Last DP export: 02/16/20 3:10 pm Patient Name: DENNIS KHAN Page [phone] at 1744 All edits/amendments must be made on the electronic document DICTATION DATE: 02/16/201743 FOOD INSPECTOR: SHELBY 02/16/201743 RPT#: [id number] DC DATE: STATUS: ADM IN [facility] [address] [place] [address] END OF REPORT
[2020-02-17] VITALS (23 sets, daily range): BP systolic 94–161; BP diastolic 46–74
[2020-02-17 08:38] LABS: ALBUMIN 1.9 g/dL (3.4-5.0); ALKALINE PHOSPHATASE 42 U/L (30-120); ALT (SGPT) 27 U/L (10-68); BILIRUBIN - TOTAL 0.54 mg/dL (0.2-1.3); CALC OSMOLALITY 292 mosm/kg (275-300); CALCIUM 9.1 mg/dL (8.5-10.1); CARBON DIOXIDE 30.7 mmol/L (21.0-32.0); CHLORIDE - SERUM 106 mmol/L (98-107); CREATININE - SERUM 0.5 mg/dL (0.6-1.3); GLUCOSE 165 mg/dL (74-106); POTASSIUM - SERUM 4.4 mmol/L (3.5-5.1); PROTEIN - SERUM 5.2 g/dL (6.4-8.2); SODIUM 143 mmol/L (136-145); UREA NITROGEN 23 mg/dL (7-18); eGFR NON AFRICAN AMERICAN > 90 mL/min (90-120)
[2020-02-17 08:51] LABS: BASOPHILS 0 % (0-2); EOSINOPHILS 0 % (0-7); HEMOGLOBIN 9.9 g/dL (12-16); LYMPHOCYTES 6.4 % (15-50); MCH 27.9 pg (26.0-34.0); MONOCYTES 2.7 % (2-11); NEUTROPHILS 89.9 % (40-80); PLATELET COUNT 344 10x3/uL (130-400); RBC 3.55 10x6/uL (4.00-5.40); RDW 13.2 % (11.5-14.5); WBC 11.9 10x3/uL (4.8-10.8)
--- NOTE | 2020-02-17 15:50 | NUR ---
HIBCLENS BATH GIVEN. MEDIPLEX ON COCCYX AND BUTTOCK REMOVED. OPEN AREA NOTED ON LEFT BUTTOCK, CLEAN WITH SOAP AND WATER. NEW MEDIPLEX APPLIED. PAITNET TOLERATED WELL. IN CRACK OF COCCYX BRUSIING NOTED. PATIENT OPENS EYES TO MINIMAL STIMULATION. NOT OBEYING COMMANDS. WILL BLINK EYES. JUST STARRING OUT IN SPACE. ORTIZ CATH PATENT. RESIDUAL CHECK LESS THAN 10CC NOTED. TUBE FEEDING TURNED UP TO 20 ML HOUR. MONITOR SB INTO 30'S FREQ .HEEL PROTECTORS APPLIED PREVENTIVE. HEELS BRIDGED ON PILLOW. ARMS ELEVATED ON PILLOWS DUE TO SWELLING. ALLISON PATENT LEFT RADIAL. CENTRAL LINE DRESSING DRY AND INTACT.
--- NOTE | 2020-02-17 18:10 | NUR ---
SUCTIONED MODERATE AMOUNT THICK YELLOW SPUTUM FROM ETT X 3.
--- NOTE | 2020-02-17 19:45 | NUR ---
PTS SON HERE UPDATE GIVEN
[2020-02-18] VITALS (24 sets, daily range): BP systolic 94–162; BP diastolic 48–80
[2020-02-18 04:48] LABS: BASOPHILS 0.1 % (0-2); EOSINOPHILS 0 % (0-7); IMMATURE GRANULOCYTES 1.4 % (0-5); LYMPHOCYTES 4.1 % (15-50); MCH 28.3 pg (26.0-34.0); MCHC 29.8 g/dL (31.0-37.0); MEAN PLATELET VOLUME 9.9 fL (7.4-10.4); MONOCYTES 5.3 % (2-11); NEUTROPHILS 89.1 % (40-80); PLATELET COUNT 394 10x3/uL (130-400); RDW 13.4 % (11.5-14.5); WBC 13.4 10x3/uL (4.8-10.8)
[2020-02-18 04:49] LABS: RBC 2.47 10x6/uL (4.00-5.40)
[2020-02-18 04:50] LABS: HEMATOCRIT 23.5 % (36.0-48.0); MCV 95.1 fL (80.0-100.0)
[2020-02-18 04:53] LABS: CALC OSMOLALITY 290 mosm/kg (275-300); CALCIUM 9.5 mg/dL (8.5-10.1); CARBON DIOXIDE 31.9 mmol/L (21.0-32.0); CHLORIDE - SERUM 104 mmol/L (98-107); CREATININE - SERUM 0.6 mg/dL (0.6-1.3); GLUCOSE 183 mg/dL (74-106); POTASSIUM - SERUM 4.3 mmol/L (3.5-5.1); SODIUM 142 mmol/L (136-145); TRIGLYCERIDE 254 mg/dL (30-200); UREA NITROGEN 22 mg/dL (7-18); eGFR NON AFRICAN AMERICAN > 90 mL/min (90-120)
--- NOTE | 2020-02-18 07:00 | NUR ---
PAGED DR YADIRA PASCUAL TONGUE AND GROOVE MACHINE FEEDER GIVEN LAB RESULTS LOW HGB BCT
--- NOTE | 2020-02-18 07:11 | NUR ---
REPORT TO [facility] INFORMED OF LAB RESULTS AND LOW HGB AND HCT AND WAITING FOR [facility] TO CALL BACK
--- NOTE | 2020-02-18 16:19 | NUR ---
2ND UNIT OF BLOOD INFUSING WITHOUT REACTION.
[2020-02-18 18:00] LABS: HEMATOCRIT 38.4 % (36.0-48.0)
--- NOTE | 2020-02-18 22:53 | NUR ---
Pt resting in bed, no acute distress noted. Assessment per flow sheet, meds per MAR, will continue to monitor.
[2020-02-19] VITALS (23 sets, daily range): BP systolic 106–172; BP diastolic 49–86
[2020-02-19 05:11] LABS: BASOPHILS 0 % (0-2); EOSINOPHILS 0.1 % (0-7); HEMOGLOBIN 11.7 g/dL (12-16); LYMPHOCYTES 4.6 % (15-50); MCH 28.5 pg (26.0-34.0); MCHC 30.8 g/dL (31.0-37.0); MEAN PLATELET VOLUME 9.6 fL (7.4-10.4); MONOCYTES 6.9 % (2-11); NEUTROPHILS 87.4 % (40-80); RDW 13.9 % (11.5-14.5); WBC 13.6 10x3/uL (4.8-10.8)
[2020-02-19 05:25] LABS: APTT 24.3 SECONDS (22.8-39.4); INR 1.14 (0.85-1.17); PROTIME 14.5 SECONDS (11.6-15.0)
[2020-02-19 05:27] LABS: % SATURATION 14 % (15-55); IRON 34 ug/dl (35-150); TOTAL IRON BIND CAPACITY 240 ug/dl (260-445); UNSAT IRON BIND CAPACITY 206 ug/dl (150-375)
[2020-02-19 05:28] LABS: MCV 92.5 fL (80.0-100.0); PLATELET COUNT 292 10x3/uL (130-400); RBC 4.11 10x6/uL (4.00-5.40)
[2020-02-19 05:29] LABS: ALBUMIN 1.9 g/dL (3.4-5.0); ALKALINE PHOSPHATASE 54 U/L (30-120); BILIRUBIN - TOTAL 0.86 mg/dL (0.2-1.3); CALC OSMOLALITY 283 mosm/kg (275-300); CALCIUM 9.4 mg/dL (8.5-10.1); CARBON DIOXIDE 32.7 mmol/L (21.0-32.0); CHLORIDE - SERUM 103 mmol/L (98-107); CREATININE - SERUM 0.6 mg/dL (0.6-1.3); GLUCOSE 150 mg/dL (74-106); MAGNESIUM - SERUM 2.2 mg/dL (1.8-2.4); POTASSIUM - SERUM 4.2 mmol/L (3.5-5.1); PROTEIN - SERUM 5.9 g/dL (6.4-8.2); SODIUM 140 mmol/L (136-145); UREA NITROGEN 19 mg/dL (7-18); eGFR NON AFRICAN AMERICAN > 90 mL/min (90-120)
[2020-02-19 05:30] LABS: ALT (SGPT) 47 U/L (10-68)
--- NOTE | 2020-02-19 08:57 | NUR ---
Nutrition follow-up: Intubated, sedated with propofol @ 14.9 ml/hr Pulmocare @ 30 ml/hr Labs reviewed Vecuronium off Wt: 225# RDN following.
--- NOTE | 2020-02-19 09:18 | NUR ---
DR YU IN THE UNIT. SPOKE WITH ELANA, SON, VIA TELEPHONE. DECREASE FIO2 TO 60%.
[2020-02-19 10:06] LABS: HEMATOCRIT 38.9 % (36.0-48.0); HEMOGLOBIN 12.2 g/dL (12-16)
[2020-02-19 19:03] LABS: HEMATOCRIT 37.7 % (36.0-48.0); HEMOGLOBIN 11.8 g/dL (12-16)
[2020-02-20] VITALS (24 sets, daily range): BP systolic 99–148; BP diastolic 46–68
[2020-02-20 08:51] LABS: CALC OSMOLALITY 283 mosm/kg (275-300); CALCIUM 9.3 mg/dL (8.5-10.1); CARBON DIOXIDE 36.3 mmol/L (21.0-32.0); CHLORIDE - SERUM 101 mmol/L (98-107); CREATININE - SERUM 0.6 mg/dL (0.6-1.3); GLUCOSE 128 mg/dL (74-106); MAGNESIUM - SERUM 2.1 mg/dL (1.8-2.4); POTASSIUM - SERUM 3.7 mmol/L (3.5-5.1); SODIUM 140 mmol/L (136-145); UREA NITROGEN 21 mg/dL (7-18); eGFR NON AFRICAN AMERICAN > 90 mL/min (90-120)
[2020-02-20 09:39] LABS: BASOPHILS 0.1 % (0-2); EOSINOPHILS 0.4 % (0-7); HEMATOCRIT 34.5 % (36.0-48.0); HEMOGLOBIN 10.5 g/dL (12-16); IMMATURE GRANULOCYTES 0.4 % (0-5); LYMPHOCYTES 4.1 % (15-50); MCH 28.5 pg (26.0-34.0); MCHC 30.4 g/dL (31.0-37.0); MCV 93.5 fL (80.0-100.0); MEAN PLATELET VOLUME 10.2 fL (7.4-10.4); MONOCYTES 2.4 % (2-11); NEUTROPHILS 92.6 % (40-80); PLATELET COUNT 228 10x3/uL (130-400); RBC 3.69 10x6/uL (4.00-5.40); RDW 13.8 % (11.5-14.5); WBC 18.6 10x3/uL (4.8-10.8)
[2020-02-21] VITALS (24 sets, daily range): BP systolic 116–152; BP diastolic 50–82
--- NOTE | 2020-02-21 10:13 | NUR ---
Nutrition follow-up: Intubated, sedated; Fentanyl Pulmocare @ 30 ml/hr via OGT; has not advanced to goal since admit Labs reviewed Wt: 225# Recommend advancing to goal rate of 50 ml/hr RDN following.
[2020-02-22] VITALS (23 sets, daily range): BP systolic 108–139; BP diastolic 43–75
[2020-02-22 05:54] LABS: BASOPHILS 0.1 % (0-2); EOSINOPHILS 0 % (0-7); HEMATOCRIT 35.4 % (36.0-48.0); HEMOGLOBIN 10.9 g/dL (12-16); IMMATURE GRANULOCYTES 0.7 % (0-5); LYMPHOCYTES 3.1 % (15-50); MCH 29.1 pg (26.0-34.0); MCHC 30.8 g/dL (31.0-37.0); MCV 94.7 fL (80.0-100.0); MONOCYTES 5.5 % (2-11); NEUTROPHILS 90.6 % (40-80); RBC 3.74 10x6/uL (4.00-5.40); RDW 13.5 % (11.5-14.5); WBC 17.6 10x3/uL (4.8-10.8)
[2020-02-22 06:16] LABS: PLATELET COUNT 274 10x3/uL (130-400)
[2020-02-22 06:34] LABS: ALBUMIN 1.7 g/dL (3.4-5.0); ALKALINE PHOSPHATASE 95 U/L (30-120); ALT (SGPT) 39 U/L (10-68); BILIRUBIN - TOTAL 0.86 mg/dL (0.2-1.3); CALC OSMOLALITY 278 mosm/kg (275-300); CALCIUM 9.4 mg/dL (8.5-10.1); CARBON DIOXIDE 35.4 mmol/L (21.0-32.0); CHLORIDE - SERUM 100 mmol/L (98-107); CREATININE - SERUM 0.6 mg/dL (0.6-1.3); GLUCOSE 133 mg/dL (74-106); PROTEIN - SERUM 6.4 g/dL (6.4-8.2); SODIUM 137 mmol/L (136-145); UREA NITROGEN 22 mg/dL (7-18); eGFR NON AFRICAN AMERICAN > 90 mL/min (90-120)
[2020-02-22 06:35] LABS: POTASSIUM - SERUM 4.4 mmol/L (3.5-5.1)
[2020-02-23] VITALS (24 sets, daily range): BP systolic 111–143; BP diastolic 49–80
[2020-02-23 06:05] LABS: ALBUMIN 1.6 g/dL (3.4-5.0); ALKALINE PHOSPHATASE 95 U/L (30-120); BILIRUBIN - TOTAL 0.85 mg/dL (0.2-1.3); CALC OSMOLALITY 280 mosm/kg (275-300); CALCIUM 9.6 mg/dL (8.5-10.1); CARBON DIOXIDE 34.4 mmol/L (21.0-32.0); CHLORIDE - SERUM 100 mmol/L (98-107); CREATININE - SERUM 0.5 mg/dL (0.6-1.3); GLUCOSE 125 mg/dL (74-106); POTASSIUM - SERUM 4.4 mmol/L (3.5-5.1); PROTEIN - SERUM 6.3 g/dL (6.4-8.2); SODIUM 138 mmol/L (136-145); UREA NITROGEN 23 mg/dL (7-18); eGFR NON AFRICAN AMERICAN > 90 mL/min (90-120)
[2020-02-23 06:09] LABS: ALT (SGPT) 54 U/L (10-68)
[2020-02-23 07:34] LABS: BASOPHILS 0.1 % (0-2); EOSINOPHILS 0 % (0-7); HEMATOCRIT 33.8 % (36.0-48.0); HEMOGLOBIN 10.4 g/dL (12-16); IMMATURE GRANULOCYTES 0.5 % (0-5); LYMPHOCYTES 6.5 % (15-50); MCH 28.9 pg (26.0-34.0); MCHC 30.8 g/dL (31.0-37.0); MCV 93.9 fL (80.0-100.0); MEAN PLATELET VOLUME 9.3 fL (7.4-10.4); MONOCYTES 3.7 % (2-11); NEUTROPHILS 89.2 % (40-80); PLATELET COUNT 248 10x3/uL (130-400); RDW 13.4 % (11.5-14.5); WBC 14.3 10x3/uL (4.8-10.8)
--- NOTE | 2020-02-23 11:09 | NUR ---
Nutrition follow-up: Intubated, sedated; thick secretions per RT Pulmocare continues @ 30 ml/hr; goal rate 50 ml/hr Labs reviewed WT: 225# Possible bronch soon RDN following.
--- NOTE | 2020-02-23 19:00 | NUR ---
RECIVED REPORT AT THIS TIME. OBSERVED THAT PT IS ON DROPLET PERCAUTION INTUABTED/SEDATED. PT IS ROLLED TO RIGHT SIDE AT THIS TIME. VSS. RESTRAINTS OBSERVED, SEE FLOWSHEET. WILL PERFORM FULL ASESSMETN AND DOC IN FLOWSHEET. ORTIZ OBSERVED TO GRAVITY AND DRAINGAGE YELLOW URINE. BED IS LOW,SIDE RAISLX2,CALL LIGHT WITHIN REACH. WILL CONITNUE TO MONITOR
--- NOTE | 2020-02-23 19:50 | NUR ---
TURNED PTX2 ASSSIT TO LEFT SIDE USING POSITIONNG BLOCKS. LEFT ARM IS PROPED ON PILLOW FOR COMFORT. HEELS ARE BRIDGED ON BED WITH PILLOW AND HEEL PROTECTORS ARE ON. PT TOELRATED WELL AND OPENEING EYES WHEN CALLED NAME. VSS. PROVIDED ORAL CARE AT THIS TIME. RESTRAINTS WERE OBSERVED, WITH GOOD CAP REFILL LESS THAN 3 SECONDS TO BILAT EXTREMTIES AND WARM TO TOUCH. BED IS LEFT LOW,SIDE RAILSX2,CALL LIGHT WITHIN REACH. WILL CONTINUE TO MONITOR
[2020-02-24] VITALS (25 sets, daily range): BP systolic 115–165; BP diastolic 51–73
--- NOTE | 2020-02-24 00:30 | NUR ---
RECIVED AIR OVERLAY. ROLLED PT X2 ASSIST AND PUT AIR OVERLAY UNDER PT. SHE TOLERATED WELL. VSS. TURNED ON AND PROPED PT TO HER RIGHT SIDE AT THIS TIME. HEELS ARE BRIDGED OFF BED, HEEL PROTECTORS ARE ON. ORAL CARE PROVIDED. RESTRAINTS OBSERVED C WARM AND PINK EXTREMTIES. BED IS LEFT LOW,SIDE RIASLX2,CALL LIGHT WITHIN REACH. WILL CONITNUE TO MONITOR
[2020-02-24 05:30] LABS: BASOPHILS 0.1 % (0-2); EOSINOPHILS 0.1 % (0-7); HEMATOCRIT 31.7 % (36.0-48.0); HEMOGLOBIN 9.6 g/dL (12-16); IMMATURE GRANULOCYTES 0.6 % (0-5); LYMPHOCYTES 4.3 % (15-50); MCH 28.3 pg (26.0-34.0); MCHC 30.3 g/dL (31.0-37.0); MCV 93.5 fL (80.0-100.0); MEAN PLATELET VOLUME 9.3 fL (7.4-10.4); MONOCYTES 6.9 % (2-11); PLATELET COUNT 262 10x3/uL (130-400); RBC 3.39 10x6/uL (4.00-5.40); RDW 13.4 % (11.5-14.5); WBC 15.6 10x3/uL (4.8-10.8)
[2020-02-24 06:01] LABS: ALBUMIN 1.5 g/dL (3.4-5.0); ALKALINE PHOSPHATASE 84 U/L (30-120); ALT (SGPT) 58 U/L (10-68); BILIRUBIN - TOTAL 0.72 mg/dL (0.2-1.3); CALC OSMOLALITY 277 mosm/kg (275-300); CALCIUM 9.8 mg/dL (8.5-10.1); CARBON DIOXIDE 32.9 mmol/L (21.0-32.0); CHLORIDE - SERUM 99 mmol/L (98-107); CREATININE - SERUM 0.5 mg/dL (0.6-1.3); GLUCOSE 126 mg/dL (74-106); POTASSIUM - SERUM 4.4 mmol/L (3.5-5.1); PROTEIN - SERUM 5.9 g/dL (6.4-8.2); SODIUM 136 mmol/L (136-145); UREA NITROGEN 25 mg/dL (7-18); eGFR NON AFRICAN AMERICAN > 90 mL/min (90-120)
--- NOTE | 2020-02-24 07:10 | NUR ---
REPORT RECEIVED FROM OFF GOING NURSE AND PATIENT CARE ASSUMED BY TEAM NURSES MICHELLE EDWARD, RN AND MERCY ROBERTS RN. PATIENT LAYING IN BED ON RT SIDE WITH EYES CLOSED ON VENT AC RATE 22 FIO2 60 TV 500 PEEP 12. BP 132/84 RESP 19 HR 58 T99.2. PATIENT HAS VINCENZO SOFT WRIST RESTRAINTS ON , ORTIZ CATHETER IN PLACE DRAINING CLEAR YELLOW URINE, IV TO LSC INTACT AND INFUSING . WILL CONTINUE WITH PLAN OF CARE.SR UP X 2 BED IN LOW POSITION AND CALL LIGHT IN REACH.
[2020-02-24 17:05] LABS: MACROPHAGES BF 6 %; NEUT - BF 90 %
[2020-02-24 17:08] LABS: MACROPHAGES BF 7 %; NEUT - BF 89 %
--- NOTE | 2020-02-24 18:55 | NUR ---
YESSI BLANCAS RN AND MYSELF RECIVED REPROT ON PT. WE WILL BE CONDUCTING TEAM NURSING FOR THE REMAINDER OF SHIFT ON THIS PT. PT IS INTUABTED/SEDATED, VSS. ISOLATION DROPLET OBSERVED. RESTRAINTS OBSERVED, BILAT UPPER EXTREMTIES ARE PINK AND WARM. A-LINE OBSERVED IN LEFT RADIAL WRIST, C GOOD PLETH, L SUBCLAVING IS CDI, IV MEDS WILL DOC IN FLOWHSEET. ORTIZ OBSERVED HANGING TO GRAVITY WITH DARK YELLOW URINE. HEEL PROTECTORS ARE ON BILAT, SCD'S ON BILAT. WILL PERFORM FULL ASSESSMENT AND DOC IN FLOWSHEET. BED IS LOW,SIDE RAISLX2,CALL LIGHT WITHIN REACH. WILL CONITNUE TO [facility]
[2020-02-25] VITALS (24 sets, daily range): BP systolic 103–131; BP diastolic 40–58
[2020-02-25 04:06] LABS: BASOPHILS 0.1 % (0-2); EOSINOPHILS 0 % (0-7); HEMATOCRIT 32.3 % (36.0-48.0); HEMOGLOBIN 9.8 g/dL (12-16); IMMATURE GRANULOCYTES 1.2 % (0-5); LYMPHOCYTES 6.6 % (15-50); MCH 28.3 pg (26.0-34.0); MCHC 30.3 g/dL (31.0-37.0); MCV 93.4 fL (80.0-100.0); MEAN PLATELET VOLUME 9.3 fL (7.4-10.4); MONOCYTES 5.7 % (2-11); NEUTROPHILS 86.4 % (40-80); PLATELET COUNT 283 10x3/uL (130-400); RBC 3.46 10x6/uL (4.00-5.40); RDW 13.2 % (11.5-14.5); WBC 14.5 10x3/uL (4.8-10.8)
[2020-02-25 04:23] LABS: ALBUMIN 1.6 g/dL (3.4-5.0); ALKALINE PHOSPHATASE 98 U/L (30-120); ALT (SGPT) 72 U/L (10-68); CALC OSMOLALITY 270 mosm/kg (275-300); CALCIUM 9.4 mg/dL (8.5-10.1); CARBON DIOXIDE 35.9 mmol/L (21.0-32.0); CHLORIDE - SERUM 99 mmol/L (98-107); CREATININE - SERUM 0.5 mg/dL (0.6-1.3); GLUCOSE 115 mg/dL (74-106); POTASSIUM - SERUM 4.4 mmol/L (3.5-5.1); PROTEIN - SERUM 6.1 g/dL (6.4-8.2); SODIUM 134 mmol/L (136-145); UREA NITROGEN 19 mg/dL (7-18); VANCOMYCIN - TROUGH 32.9 ug/mL (10.0-20.0); eGFR NON AFRICAN AMERICAN > 90 mL/min (90-120)
--- NOTE | 2020-02-25 09:42 | NUR ---
0700 REPORT RECEIVED AND CARE ASSUMED OF PATIENT.. SEE FLOW SHEET FOR SHIFT ASSESMENT FINDINGS.. CARE GIVEN BY TEAM NURSING LYNN GARCIA RN AND MYSELF.. 0940 CXR DONE
[2020-02-26] VITALS (21 sets, daily range): BP systolic 107–152; BP diastolic 42–62
[2020-02-26 06:04] LABS: ALBUMIN 1.7 g/dL (3.4-5.0); ALKALINE PHOSPHATASE 92 U/L (30-120); ALT (SGPT) 78 U/L (10-68); BILIRUBIN - TOTAL 0.54 mg/dL (0.2-1.3); CALC OSMOLALITY 266 mosm/kg (275-300); CALCIUM 9.1 mg/dL (8.5-10.1); CARBON DIOXIDE 32.5 mmol/L (21.0-32.0); CHLORIDE - SERUM 97 mmol/L (98-107); CREATININE - SERUM 0.5 mg/dL (0.6-1.3); GLUCOSE 122 mg/dL (74-106); POTASSIUM - SERUM 4.4 mmol/L (3.5-5.1); PROTEIN - SERUM 6.3 g/dL (6.4-8.2); SODIUM 132 mmol/L (136-145); UREA NITROGEN 16 mg/dL (7-18); VANCOMYCIN - RANDOM 6.7 ug/mL (10.0-20.0); eGFR NON AFRICAN AMERICAN > 90 mL/min (90-120)
[2020-02-26 06:24] LABS: BASOPHILS 0.1 % (0-2); EOSINOPHILS 0 % (0-7); HEMATOCRIT 32.2 % (36.0-48.0); HEMOGLOBIN 9.7 g/dL (12-16); IMMATURE GRANULOCYTES 1.7 % (0-5); LYMPHOCYTES 9.3 % (15-50); MCH 28.2 pg (26.0-34.0); MCHC 30.1 g/dL (31.0-37.0); MCV 93.6 fL (80.0-100.0); MEAN PLATELET VOLUME 9.2 fL (7.4-10.4); NEUTROPHILS 82.9 % (40-80); PLATELET COUNT 300 10x3/uL (130-400); RBC 3.44 10x6/uL (4.00-5.40); RDW 13.5 % (11.5-14.5); WBC 14.1 10x3/uL (4.8-10.8)
--- NOTE | 2020-02-26 08:30 | NUR ---
UPDATED IN PERSON PATIENT SON ELANA GREEN AND UPDATED PATIENT REGGIE ON PHONE.
--- NOTE | 2020-02-26 09:15 | NUR ---
TEMP 101.4. MEDICATED PER MAR WITH TYLENOL PO.
--- NOTE | 2020-02-26 10:55 | NUR ---
REPORT RECEIVED FROM TOOL SPECIALIST AND PATIENT CARE ASSUMED. PATIENT LAYING IN BED ON RIGHT SIDE WITH EYES CLOSED ON VENT AC22 TV450 FIO2 60% PEEP 12. BP 114/52 HR 64 RESP 22 02SAT 98%. ART LINE TO RT RADIAL IV LSC ORTIZ INTACT DRAINING CLEAR YELLOW URINE. WILL CONTINUE WITH PLAN OF CARE. SR UP X 2 BED IN LOW POSITION AND CALL LIGHT IN REACH.
--- NOTE | 2020-02-26 13:12 | NUR ---
Nutrition follow-up: Pt remains intubated, sedated Pulmocare infusing @ 30 ml/hr via OGT Labs reviewed Recommend increasing TF to goal rate of 50 ml/hr RDN following.
[2020-02-27] VITALS (24 sets, daily range): BP systolic 101–139; BP diastolic 40–94
[2020-02-27 04:19] LABS: BASOPHILS 0.1 % (0-2); EOSINOPHILS 0 % (0-7); HEMATOCRIT 30.2 % (36.0-48.0); HEMOGLOBIN 9.4 g/dL (12-16); IMMATURE GRANULOCYTES 1.4 % (0-5); LYMPHOCYTES 9.5 % (15-50); MCH 28.7 pg (26.0-34.0); MCHC 31.1 g/dL (31.0-37.0); MCV 92.4 fL (80.0-100.0); MEAN PLATELET VOLUME 8.8 fL (7.4-10.4); MONOCYTES 3.6 % (2-11); NEUTROPHILS 85.4 % (40-80); PLATELET COUNT 291 10x3/uL (130-400); RBC 3.27 10x6/uL (4.00-5.40); RDW 13.2 % (11.5-14.5); WBC 14.6 10x3/uL (4.8-10.8)
[2020-02-27 04:41] LABS: ALBUMIN 1.7 g/dL (3.4-5.0); ALKALINE PHOSPHATASE 82 U/L (30-120); ALT (SGPT) 75 U/L (10-68); BILIRUBIN - TOTAL 0.74 mg/dL (0.2-1.3); CALC OSMOLALITY 266 mosm/kg (275-300); CALCIUM 8.9 mg/dL (8.5-10.1); CARBON DIOXIDE 35.6 mmol/L (21.0-32.0); CHLORIDE - SERUM 98 mmol/L (98-107); CREATININE - SERUM 0.4 mg/dL (0.6-1.3); GLUCOSE 120 mg/dL (74-106); PROTEIN - SERUM 5.9 g/dL (6.4-8.2); SODIUM 132 mmol/L (136-145); UREA NITROGEN 14 mg/dL (7-18); eGFR NON AFRICAN AMERICAN > 90 mL/min (90-120)
--- NOTE | 2020-02-27 09:38 | NUR ---
0700 REPORT RECEIVED AND CAREE ASSUMED OF PATIENT.. SEE FLOW SHEET FOR SHIFTT ASSESMENT FINDINGS.. CARE GIVEN BY TEAM NURSING LORI CASTELLANO RN AND MYSELF..
--- NOTE | 2020-02-27 19:00 | NUR ---
REPORT RECEIVED, PT SEDATED ON VENT. SOFT WRIST RESTRAINTS IN PLACE, ASSESSMENT COMPLETED, SEE FLOWSHEET. LT RADIAL A-LINE, LT SUBCLAVIAN CVL, SEE IV FLOWSHEET.
[2020-02-28] VITALS (24 sets, daily range): BP systolic 110–133; BP diastolic 49–69
--- NOTE | 2020-02-28 05:29 | NUR ---
PT VOMITED IN VENT CIRCUIT, CIRCUIT CHANGED.
[2020-02-28 05:39] LABS: BASOPHILS 0.1 % (0-2); EOSINOPHILS 0 % (0-7); HEMATOCRIT 32.4 % (36.0-48.0); HEMOGLOBIN 10.1 g/dL (12-16); IMMATURE GRANULOCYTES 1.4 % (0-5); LYMPHOCYTES 6.7 % (15-50); MCH 28.6 pg (26.0-34.0); MCHC 31.2 g/dL (31.0-37.0); MCV 91.8 fL (80.0-100.0); MEAN PLATELET VOLUME 8.9 fL (7.4-10.4); NEUTROPHILS 86.8 % (40-80); PLATELET COUNT 339 10x3/uL (130-400); RBC 3.53 10x6/uL (4.00-5.40); RDW 13.3 % (11.5-14.5); WBC 16.3 10x3/uL (4.8-10.8)
[2020-02-28 06:02] LABS: ALKALINE PHOSPHATASE 83 U/L (30-120); ALT (SGPT) 76 U/L (10-68); BILIRUBIN - TOTAL 0.83 mg/dL (0.2-1.3); CALC OSMOLALITY 261 mosm/kg (275-300); CALCIUM 9.5 mg/dL (8.5-10.1); CARBON DIOXIDE 33.3 mmol/L (21.0-32.0); CHLORIDE - SERUM 96 mmol/L (98-107); GLUCOSE 113 mg/dL (74-106); POTASSIUM - SERUM 3.9 mmol/L (3.5-5.1); PROTEIN - SERUM 6.6 g/dL (6.4-8.2); SODIUM 129 mmol/L (136-145); UREA NITROGEN 17 mg/dL (7-18)
[2020-02-28 06:03] LABS: CREATININE - SERUM 0.6 mg/dL (0.6-1.3)
[2020-02-28 06:04] LABS: eGFR NON AFRICAN AMERICAN > 90 mL/min (90-120)
--- NOTE | 2020-02-28 13:16 | NUR ---
Nutrition follow-up: Intubated, sedated Pulmocare off 2/2 pt vomiting last night labs reviewed Pt still with no BM charted Recommend restarting Pulmocare with gradual increase to 50 ml/hr Meds: reglan May need to add stool softener also RDN following.
[2020-02-28 15:13] LABS: FUNGUS STAIN Final report (())
--- NOTE | 2020-02-28 19:00 | NUR ---
PT SEDATED ON VENT, LT RADIAL A-LINE IN PLACE, LT SUBCLAVIAN CVL INFUSING, SEE IV FLOWSHEET. ASSESSMENT COMPLETED, SEE FLOWSHEET. WILL CONTINUE TO MONITOR.
[2020-02-29] VITALS (21 sets, daily range): BP systolic 109–167; BP diastolic 48–96
[2020-02-29 06:04] LABS: BASOPHILS 0.1 % (0-2); EOSINOPHILS 0 % (0-7); HEMATOCRIT 30.3 % (36.0-48.0); HEMOGLOBIN 9.4 g/dL (12-16); LYMPHOCYTES 6.2 % (15-50); MCH 28.3 pg (26.0-34.0); MCV 91.3 fL (80.0-100.0); MEAN PLATELET VOLUME 8.5 fL (7.4-10.4); MONOCYTES 4.6 % (2-11); NEUTROPHILS 88.1 % (40-80); PLATELET COUNT 321 10x3/uL (130-400); RBC 3.32 10x6/uL (4.00-5.40); RDW 13.5 % (11.5-14.5); WBC 14.5 10x3/uL (4.8-10.8)
[2020-02-29 06:42] LABS: ALKALINE PHOSPHATASE 70 U/L (30-120); ALT (SGPT) 65 U/L (10-68); BILIRUBIN - TOTAL 0.81 mg/dL (0.2-1.3); CALC OSMOLALITY 263 mosm/kg (275-300); CALCIUM 9.8 mg/dL (8.5-10.1); CARBON DIOXIDE 29.5 mmol/L (21.0-32.0); CHLORIDE - SERUM 95 mmol/L (98-107); CREATININE - SERUM 0.5 mg/dL (0.6-1.3); GLUCOSE 121 mg/dL (74-106); POTASSIUM - SERUM 3.9 mmol/L (3.5-5.1); PROTEIN - SERUM 6.6 g/dL (6.4-8.2); SODIUM 130 mmol/L (136-145); UREA NITROGEN 18 mg/dL (7-18); VANCOMYCIN - RANDOM 5.3 ug/mL (10.0-20.0); eGFR NON AFRICAN AMERICAN > 90 mL/min (90-120)
--- NOTE | 2020-02-29 13:56 | MORECARE ---
CASE MANAGEMENT DISCHARGE SUMMARY PATIENT: DENNIS KHAN UNIT: [id number] ADM DATE: 02/09/20 AGE: 59 : 56 SEX: F ROOM/BED: D.2314 AUTHOR: RICKY,DOC PHYSICIAN: REFERRING PHYSICIAN: URBANO EDDY DO DATE OF SERVICE: 02/29/20 Discharge Plan Patient Name: DENNIS KHAN Facility: [facility]:[place] : 1960 Planned Disposition: Anticipated Discharge Date: Discharge Date: Expected LOS: Initial Reviewer: [email or web address] Initial Review Date: 02/09/2020 Generated: 02/29/20 2:56 pm DCP- Discharge Planning Updated by [email or web address]: Tamela Smith on 02/16/20 3:[address] CM contacted spouse, Tyrell Yoon @[phone], to discuss initial DC planning. Spouse is in agreement to proceed with the assessment. Patient is currently sedated and intubated on a mechanical vent. Per patient's spouse, patient lives independently in her home, with him. 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 Pharmacy: [facility], [place]. HHS: No. DME: None. Emergency contact: Tyrell Yoon and (son) Salazar Yoon #[phone]. Patient is Independent with all ADL's, medication management PREDATORY ANIMAL TRAPPER. CM discussed the availability of HH, Rehab, SNF, OP Therapy, DME services. Patient would benefit from Rehab or HHS upon DC. Spouse agrees to Rehab prior to returning home, if needed. Spouse denies hospitalization within the past 30 days. Spouse denies the use of community resources PREDATORY ANIMAL TRAPPER. Transportation at time of discharge: Spouse or son. CM will follow and assist PRN with DC needs/plans. DCPIA - Discharge Planning Initial Assessment Updated by [email or web address]: Tamela Smith on 02/16/20 4:05 pm * Is the patient Alert and Oriented? No * How many steps to enter\exit or inside your home? * PCP Unknown at present * Pharmacy [facility], [place] * Preadmission Environment Home with Family * ADLs Independent * Equipment None * Other Equipment NA * List name and contact numbers for known caregivers / representatives who currently or will assist patient after discharge: Tyrell Yoon (spouse) [phone] Salazar Khan (son) [phone] * Verbal permission to speak to the caregivers and representatives has been obtained from the patient. N/A * Community resources currently utilized None * Please name any agencies selected above. NA * Additional services required to return to the preadmission environment? Yes * Can the patient safely return to the preadmission environment? Yes * Has this patient been hospitalized within the prior 30 days at any hospital? No Last DP export: 02/16/20 4:44 pm Patient Name: DENNIS KHAN Page 35268 at 1356 All edits/amendments must be made on the electronic document DICTATION DATE: 02/29/20 1356 FISH PROCESSOR: SHELBY 02/29/20 1356 RPT#: [id number] DC DATE: STATUS: ADM IN [facility] [address] [place] [address] END OF REPORT
--- NOTE | 2020-02-29 18:27 | NUR ---
DURING BATH, REDDNESS NOTED TO TORSO AND BACK. LEFT BREAST SKIN STARTED TO SLOUGH OFF AND THE SKIN ON THE BACK STARTED TO SLOUGH OFF. DR FLYNN NOTIFIED. SEE ORDERS. ELANA GREEN, SON, CALLED AND NOTIFIED.
[2020-03-01] VITALS (23 sets, daily range): BP systolic 110–164; BP diastolic 42–98
[2020-03-01 04:25] LABS: BASOPHILS 0 % (0-2); EOSINOPHILS 0 % (0-7); HEMATOCRIT 27.8 % (36.0-48.0); HEMOGLOBIN 8.8 g/dL (12-16); IMMATURE GRANULOCYTES 0.8 % (0-5); MCH 28.6 pg (26.0-34.0); MCHC 31.7 g/dL (31.0-37.0); MCV 90.3 fL (80.0-100.0); MEAN PLATELET VOLUME 8.7 fL (7.4-10.4); MONOCYTES 4.3 % (2-11); NEUTROPHILS 89.9 % (40-80); PLATELET COUNT 343 10x3/uL (130-400); RBC 3.08 10x6/uL (4.00-5.40); RDW 13.4 % (11.5-14.5); WBC 14.7 10x3/uL (4.8-10.8)
[2020-03-01 04:43] LABS: ALKALINE PHOSPHATASE 64 U/L (30-120); ALT (SGPT) 53 U/L (10-68); BILIRUBIN - TOTAL 0.78 mg/dL (0.2-1.3); CALC OSMOLALITY 260 mosm/kg (275-300); CALCIUM 9.4 mg/dL (8.5-10.1); CARBON DIOXIDE 28.6 mmol/L (21.0-32.0); CHLORIDE - SERUM 96 mmol/L (98-107); CREATININE - SERUM 0.5 mg/dL (0.6-1.3); GLUCOSE 129 mg/dL (74-106); MAGNESIUM - SERUM 1.9 mg/dL (1.8-2.4); PHOSPHOROUS 2.6 mg/dL (2.5-4.9); PROTEIN - SERUM 6.1 g/dL (6.4-8.2); SODIUM 128 mmol/L (136-145); UREA NITROGEN 17 mg/dL (7-18); eGFR NON AFRICAN AMERICAN > 90 mL/min (90-120)
--- NOTE | 2020-03-01 08:25 | NUR ---
DECREASED O2 50%
--- NOTE | 2020-03-01 13:15 | NUR ---
Nutrition follow-up: Pt remains intubated, sedated Pulmocare to restart per Dr. Andrea; Reglan increased to Q 6 hours. No BM per nurse Labs reviewed Wt: 239# RDN following.
--- NOTE | 2020-03-01 14:37 | NUR ---
CVL LINE CHANGE OUT BY DR PARKER. ART LINE PLACED RT RADIAL AND DCD L RAD ART LINE.
[2020-03-02] VITALS (24 sets, daily range): BP systolic 115–174; BP diastolic 40–59
[2020-03-02 04:52] LABS: BASOPHILS 0 % (0-2); EOSINOPHILS 0 % (0-7); HEMATOCRIT 32.3 % (36.0-48.0); HEMOGLOBIN 10.2 g/dL (12-16); IMMATURE GRANULOCYTES 1.2 % (0-5); LYMPHOCYTES 6.6 % (15-50); MCH 28.8 pg (26.0-34.0); MCHC 31.6 g/dL (31.0-37.0); MCV 91.2 fL (80.0-100.0); MEAN PLATELET VOLUME 8.9 fL (7.4-10.4); MONOCYTES 5.5 % (2-11); NEUTROPHILS 86.7 % (40-80); PLATELET COUNT 365 10x3/uL (130-400); RBC 3.54 10x6/uL (4.00-5.40); RDW 13.7 % (11.5-14.5); WBC 11.4 10x3/uL (4.8-10.8)
[2020-03-02 05:10] LABS: ALBUMIN 2.2 g/dL (3.4-5.0); ALKALINE PHOSPHATASE 82 U/L (30-120); ALT (SGPT) 52 U/L (10-68); BILIRUBIN - TOTAL 0.69 mg/dL (0.2-1.3); CALC OSMOLALITY 263 mosm/kg (275-300); CALCIUM 9.6 mg/dL (8.5-10.1); CARBON DIOXIDE 29.1 mmol/L (21.0-32.0); CHLORIDE - SERUM 96 mmol/L (98-107); CREATININE - SERUM 0.5 mg/dL (0.6-1.3); GLUCOSE 128 mg/dL (74-106); PHOSPHOROUS 2.6 mg/dL (2.5-4.9); POTASSIUM - SERUM 4.5 mmol/L (3.5-5.1); PROTEIN - SERUM 6.7 g/dL (6.4-8.2); SODIUM 130 mmol/L (136-145); UREA NITROGEN 16 mg/dL (7-18); eGFR NON AFRICAN AMERICAN > 90 mL/min (90-120)
--- NOTE | 2020-03-02 20:37 | NUR ---
FIO2 DOWN TO 45%
[2020-03-03] VITALS (25 sets, daily range): BP systolic 120–201; BP diastolic 39–92
[2020-03-03 04:34] LABS: BASOPHILS 0.1 % (0-2); EOSINOPHILS 0 % (0-7); HEMOGLOBIN 10.6 g/dL (12-16); IMMATURE GRANULOCYTES 1.1 % (0-5); LYMPHOCYTES 6.1 % (15-50); MCH 28.7 pg (26.0-34.0); MCHC 32.1 g/dL (31.0-37.0); MCV 89.4 fL (80.0-100.0); MEAN PLATELET VOLUME 8.8 fL (7.4-10.4); MONOCYTES 5.7 % (2-11); PLATELET COUNT 435 10x3/uL (130-400); RBC 3.69 10x6/uL (4.00-5.40); RDW 13.6 % (11.5-14.5)
[2020-03-03 04:35] LABS: WBC 15.5 10x3/uL (4.8-10.8)
[2020-03-03 04:51] LABS: CALC OSMOLALITY 265 mosm/kg (275-300); CALCIUM 9.9 mg/dL (8.5-10.1); CARBON DIOXIDE 30.1 mmol/L (21.0-32.0); CHLORIDE - SERUM 97 mmol/L (98-107); CREATININE - SERUM 0.4 mg/dL (0.6-1.3); GLUCOSE 123 mg/dL (74-106); PHOSPHOROUS 2.5 mg/dL (2.5-4.9); SODIUM 131 mmol/L (136-145); UREA NITROGEN 18 mg/dL (7-18); eGFR NON AFRICAN AMERICAN > 90 mL/min (90-120)
[2020-03-03 04:52] LABS: POTASSIUM - SERUM 3.7 mmol/L (3.5-5.1)
--- NOTE | 2020-03-03 06:30 | NUR ---
BLOOD IN ORTIZ CATHETER, PAGED DOCTOR RINA
[2020-03-04] VITALS (22 sets, daily range): BP systolic 75–179; BP diastolic 47–96
[2020-03-04 06:55] LABS: ALBUMIN 2.3 g/dL (3.4-5.0); ALKALINE PHOSPHATASE 81 U/L (30-120); ALT (SGPT) 64 U/L (10-68); CALC OSMOLALITY 270 mosm/kg (275-300); CALCIUM 9.7 mg/dL (8.5-10.1); CARBON DIOXIDE 30.5 mmol/L (21.0-32.0); CHLORIDE - SERUM 99 mmol/L (98-107); CREATININE - SERUM 0.3 mg/dL (0.6-1.3); GLUCOSE 110 mg/dL (74-106); MAGNESIUM - SERUM 1.8 mg/dL (1.8-2.4); PHOSPHOROUS 2.8 mg/dL (2.5-4.9); POTASSIUM - SERUM 3.6 mmol/L (3.5-5.1); SODIUM 135 mmol/L (136-145); eGFR NON AFRICAN AMERICAN > 90 mL/min (90-120)
[2020-03-04 06:56] LABS: UREA NITROGEN 12 mg/dL (7-18)
--- NOTE | 2020-03-04 07:10 | NUR ---
BEDSIDE REPORT RECEIVED FROM OFF GOING NURSE AND PATIENT CARE ASSUMED. PATIENT LAYING IN BED ON RT SIDE WITH EYES OPEN ON VENT AC 20 FIO2 45% TV 450 PEEP 10 BP 130/47 HR 56 W7HMC33% CVP 9. IV LSC INFUSING FENTANYL, NS. PATIENT IS AWAKE AND ALERT. FOLLOWS BASIC COMMANDS AND SHAKES HEAD YES AND NO. ORTIZ DRAINING YESSI URINE. WILL CONTINUE WITH PLAN OF CARE. SR UP X 2 BED IN LOW POSIITON AND CALL LIGHT IN REACH. VINCENZO SOFT WRIST RESTARINTS IN PLACE.
[2020-03-04 08:15] LABS: BASOPHILS 0.1 % (0-2); EOSINOPHILS 0 % (0-7); HEMATOCRIT 31.5 % (36.0-48.0); IMMATURE GRANULOCYTES 0.9 % (0-5); LYMPHOCYTES 7.9 % (15-50); MCH 28.7 pg (26.0-34.0); MCHC 31.7 g/dL (31.0-37.0); MCV 90.5 fL (80.0-100.0); MEAN PLATELET VOLUME 8.8 fL (7.4-10.4); MONOCYTES 5.3 % (2-11); NEUTROPHILS 85.8 % (40-80); PLATELET COUNT 420 10x3/uL (130-400); RBC 3.48 10x6/uL (4.00-5.40); WBC 11.7 10x3/uL (4.8-10.8)
--- NOTE | 2020-03-04 10:20 | NUR ---
PATIENT TO CPAP. PEEP DECREASED. PATIENT TOLERATING DWELL. O2 SAT 95%. WILL CONTINUE TO MONITOR. S
--- NOTE | 2020-03-04 10:30 | NUR ---
CPAP TRIAL INITITATED.PATIENT IS STABLE AND VSS.02 SAT 95%. WILL CONTINUE TO MONITOR.
--- NOTE | 2020-03-04 11:30 | NUR ---
CPAP TRIAL DCD. PATIENT VONITTING. PER VO DR YU, DC TUBE FEEDING. PATIENT BACK TO VENT. PATIENT IS STABLE AND VSS. 02 SAT98%.
[2020-03-04 12:09] LABS: AMPHOTERICIN B MIC 1.0 ug/mL (())
--- NOTE | 2020-03-04 13:20 | NUR ---
PATIENT BACK ON CPAP. VSS O2 SAT 95%. WILL CONTINUE TO MONITOR.
--- NOTE | 2020-03-04 13:24 | NUR ---
Nutrition follow-up: Weaning trials today Pulmocare has been infusing @ 40 ml/hr via gravity drips Pt has been more alert today per nurse Labs reviewed WT: 225# RDN following.
[2020-03-05] VITALS (24 sets, daily range): BP systolic 84–159; BP diastolic 46–98
[2020-03-05 06:05] LABS: BASOPHILS 0 % (0-2); EOSINOPHILS 0 % (0-7); HEMATOCRIT 31.6 % (36.0-48.0); IMMATURE GRANULOCYTES 1.3 % (0-5); LYMPHOCYTES 7.2 % (15-50); MCH 28.7 pg (26.0-34.0); MCHC 31.6 g/dL (31.0-37.0); MCV 90.8 fL (80.0-100.0); MEAN PLATELET VOLUME 8.9 fL (7.4-10.4); MONOCYTES 6.1 % (2-11); NEUTROPHILS 85.4 % (40-80); PLATELET COUNT 402 10x3/uL (130-400); RBC 3.48 10x6/uL (4.00-5.40); WBC 9.7 10x3/uL (4.8-10.8)
[2020-03-05 06:48] LABS: ALBUMIN 2.3 g/dL (3.4-5.0); ALKALINE PHOSPHATASE 76 U/L (30-120); BILIRUBIN - TOTAL 1.05 mg/dL (0.2-1.3); CALC OSMOLALITY 257 mosm/kg (275-300); CALCIUM 9.6 mg/dL (8.5-10.1); CARBON DIOXIDE 27.2 mmol/L (21.0-32.0); CHLORIDE - SERUM 94 mmol/L (98-107); GLUCOSE 116 mg/dL (74-106); MAGNESIUM - SERUM 1.8 mg/dL (1.8-2.4); PHOSPHOROUS 3.2 mg/dL (2.5-4.9); POTASSIUM - SERUM 3.4 mmol/L (3.5-5.1); SODIUM 128 mmol/L (136-145); UREA NITROGEN 12 mg/dL (7-18)
[2020-03-05 06:49] LABS: ALT (SGPT) 95 U/L (10-68); CREATININE - SERUM 0.4 mg/dL (0.6-1.3); eGFR NON AFRICAN AMERICAN > 90 mL/min (90-120)
--- NOTE | 2020-03-05 12:18 | NUR ---
TOLERATING CPAP TRIAL ON VENT WELL. NO DISTRESS NOTED NO LABORED RESP NONE.
[2020-03-06] VITALS (23 sets, daily range): BP systolic 96–190; BP diastolic 48–107
[2020-03-06 05:21] LABS: BASOPHILS 0 % (0-2); EOSINOPHILS 0 % (0-7); HEMATOCRIT 34.1 % (36.0-48.0); HEMOGLOBIN 10.8 g/dL (12-16); IMMATURE GRANULOCYTES 0.9 % (0-5); LYMPHOCYTES 9.5 % (15-50); MCH 28.7 pg (26.0-34.0); MCHC 31.7 g/dL (31.0-37.0); MCV 90.7 fL (80.0-100.0); MEAN PLATELET VOLUME 8.8 fL (7.4-10.4); MONOCYTES 5.6 % (2-11); PLATELET COUNT 431 10x3/uL (130-400); RBC 3.76 10x6/uL (4.00-5.40); RDW 14.3 % (11.5-14.5); WBC 9.8 10x3/uL (4.8-10.8)
[2020-03-06 05:46] LABS: ALBUMIN 2.5 g/dL (3.4-5.0); ALKALINE PHOSPHATASE 86 U/L (30-120); BILIRUBIN - TOTAL 1.17 mg/dL (0.2-1.3); CALC OSMOLALITY 268 mosm/kg (275-300); CALCIUM 9.8 mg/dL (8.5-10.1); CHLORIDE - SERUM 99 mmol/L (98-107); CREATININE - SERUM 0.4 mg/dL (0.6-1.3); GLUCOSE 92 mg/dL (74-106); MAGNESIUM - SERUM 1.9 mg/dL (1.8-2.4); PHOSPHOROUS 3.3 mg/dL (2.5-4.9); POTASSIUM - SERUM 3.4 mmol/L (3.5-5.1); PROTEIN - SERUM 6.3 g/dL (6.4-8.2); SODIUM 135 mmol/L (136-145); UREA NITROGEN 11 mg/dL (7-18); eGFR NON AFRICAN AMERICAN > 90 mL/min (90-120)
[2020-03-06 06:03] LABS: ALT (SGPT) 121 U/L (10-68)
--- NOTE | 2020-03-06 07:00 | NUR ---
REC'D REPORT ANFD RESUMED CARE, LYING IN BED WITH ETT TO VENT AND SECURED, FIO2 45%, SAT 90% ON MONITOR, OGT CLAMPED, PLACEMENT CHECKED WITH AIR INSUFLATION, LT SC WITH NS AT 50CC/HR, RIGHT RADIAL ALLISON IN PLACE, WAVE FORM DAMPENED, ORTIZ TO GRAVITY WITH YESSI DRAINAGE AND RED SEDIMENT, AIR OVERLAY IN USE, SCD'S B/L, IN ISOLATION FOR COVID 19, ASSESSMENT COMPLETED PER FLOWSHEET
--- NOTE | 2020-03-06 08:30 | NUR ---
MORNING MEDS GIVEN PER AUG FLOWSHEET
[2020-03-06 09:13] LABS: VIRAL - RESULT No virus isolated. (())
--- NOTE | 2020-03-06 10:10 | NUR ---
CHANGED TO CPCP ON VENT FOR TRIAL BY RT
--- NOTE | 2020-03-06 11:00 | NUR ---
HR 126, RESP 35, CHANGED BACK TO RATE ON VENT, NO OTHER ACUTE CHANGE FROM PREVIOUS
--- NOTE | 2020-03-06 11:34 | NUR ---
Nutrition follow-up: CPAP trials today NPO Labs reviewed WT: 223# Possible extubation soon RDN following.
--- NOTE | 2020-03-06 15:17 | NUR ---
PC FROM MR REGGIE GREEN, STATES HE IS IN ER AND THAT HE WILL BE ADMITTED TO THE HOSPITAL FOR SUPECTED HEART PROBLEMS, UPDATED HIM ON MRS GREEN STATUS, NO OTHER NEEDS AT THIS TIME
--- NOTE | 2020-03-06 17:28 | NUR ---
DR YU MAKING ROUNDS, DISCUSSED BLOODY SEDIMENT IN URINE, AND COFFEE GROUND SECRETIONS FROM NGT, NEW ORDER GIVEN FOR PROTONIX 40MG BID
--- NOTE | 2020-03-06 18:39 | NUR ---
PAGED DR YU RE BP, AND RECEIVED PC BACK NEW ORDER FOR FENTANYL STITCH WELDER GIVEN, TO START AT 25 MCG AND NOT TO TIRATE HIGHER THAN 100 MCG
[2020-03-07] VITALS (24 sets, daily range): BP systolic 85–199; BP diastolic 47–100
[2020-03-07 04:19] LABS: BASOPHILS 0 % (0-2); EOSINOPHILS 0 % (0-7); HEMATOCRIT 35.1 % (36.0-48.0); HEMOGLOBIN 11.4 g/dL (12-16); IMMATURE GRANULOCYTES 0.7 % (0-5); LYMPHOCYTES 2.6 % (15-50); MCH 28.9 pg (26.0-34.0); MCHC 32.5 g/dL (31.0-37.0); MCV 88.9 fL (80.0-100.0); MEAN PLATELET VOLUME 8.4 fL (7.4-10.4); NEUTROPHILS 90.7 % (40-80); PLATELET COUNT 436 10x3/uL (130-400); RBC 3.95 10x6/uL (4.00-5.40); RDW 14.4 % (11.5-14.5)
[2020-03-07 04:21] LABS: WBC 15.2 10x3/uL (4.8-10.8)
[2020-03-07 05:02] LABS: ALBUMIN 2.6 g/dL (3.4-5.0); ALKALINE PHOSPHATASE 101 U/L (30-120); BILIRUBIN - TOTAL 1.16 mg/dL (0.2-1.3); C-REACTIVE PROTEIN 6.7 mg/dL (0.0-0.9); CALCIUM 10.1 mg/dL (8.5-10.1); CARBON DIOXIDE 25.3 mmol/L (21.0-32.0); CHLORIDE - SERUM 96 mmol/L (98-107); CREATININE - SERUM 0.4 mg/dL (0.6-1.3); FERRITIN 661 ng/mL (3-244); MAGNESIUM - SERUM 1.7 mg/dL (1.8-2.4); PHOSPHOROUS 2.9 mg/dL (2.5-4.9); PROTEIN - SERUM 6.8 g/dL (6.4-8.2); SODIUM 131 mmol/L (136-145); UREA NITROGEN 9 mg/dL (7-18); eGFR NON AFRICAN AMERICAN > 90 mL/min (90-120)
[2020-03-07 05:10] LABS: ALT (SGPT) 152 U/L (10-68); CALC OSMOLALITY 264 mosm/kg (275-300); GLUCOSE 149 mg/dL (74-106); POTASSIUM - SERUM 3.3 mmol/L (3.5-5.1)
--- NOTE | 2020-03-07 14:41 | NUR ---
dr hernandez in room. trach placed. will continue to monitor
[2020-03-07 15:12] LABS: FUNGUS CULTURE RESULT 1 Candida albicans (())
[2020-03-08] VITALS (23 sets, daily range): BP systolic 89–129; BP diastolic 45–74
[2020-03-08 01:08] LABS: ALBUMIN 2.4 g/dL (3.4-5.0); ALKALINE PHOSPHATASE 95 U/L (30-120); ALT (SGPT) 137 U/L (10-68); BILIRUBIN - TOTAL 1.03 mg/dL (0.2-1.3); CALC OSMOLALITY 259 mosm/kg (275-300); CALCIUM 10.1 mg/dL (8.5-10.1); CARBON DIOXIDE 27.4 mmol/L (21.0-32.0); CHLORIDE - SERUM 97 mmol/L (98-107); CREATININE - SERUM 0.4 mg/dL (0.6-1.3); GLUCOSE 137 mg/dL (74-106); PROTEIN - SERUM 6.5 g/dL (6.4-8.2); SODIUM 129 mmol/L (136-145); UREA NITROGEN 10 mg/dL (7-18); eGFR NON AFRICAN AMERICAN > 90 mL/min (90-120)
[2020-03-08 01:13] LABS: MAGNESIUM - SERUM 2.2 mg/dL (1.8-2.4); POTASSIUM - SERUM 4.2 mmol/L (3.5-5.1)
[2020-03-08 06:02] LABS: BASOPHILS 0 % (0-2); EOSINOPHILS 0 % (0-7); HEMATOCRIT 35.1 % (36.0-48.0); HEMOGLOBIN 11.1 g/dL (12-16); IMMATURE GRANULOCYTES 0.3 % (0-5); LYMPHOCYTES 2.7 % (15-50); MCH 28.8 pg (26.0-34.0); MCHC 31.6 g/dL (31.0-37.0); MEAN PLATELET VOLUME 8.5 fL (7.4-10.4); MONOCYTES 2.8 % (2-11); NEUTROPHILS 94.2 % (40-80); PLATELET COUNT 363 10x3/uL (130-400); RBC 3.85 10x6/uL (4.00-5.40); RDW 14.9 % (11.5-14.5); WBC 11.7 10x3/uL (4.8-10.8)
[2020-03-08 06:12] LABS: ALBUMIN 2.5 g/dL (3.4-5.0); ALKALINE PHOSPHATASE 120 U/L (30-120); ALT (SGPT) 138 U/L (10-68); BILIRUBIN - TOTAL 1.74 mg/dL (0.2-1.3); CALC OSMOLALITY 267 mosm/kg (275-300); CALCIUM 10.7 mg/dL (8.5-10.1); CARBON DIOXIDE 26.8 mmol/L (21.0-32.0); CHLORIDE - SERUM 98 mmol/L (98-107); GLUCOSE 135 mg/dL (74-106); PHOSPHOROUS 2.2 mg/dL (2.5-4.9); POTASSIUM - SERUM 3.6 mmol/L (3.5-5.1); PROTEIN - SERUM 6.9 g/dL (6.4-8.2); SODIUM 133 mmol/L (136-145); UREA NITROGEN 12 mg/dL (7-18)
[2020-03-08 06:13] LABS: CREATININE - SERUM 0.6 mg/dL (0.6-1.3); eGFR NON AFRICAN AMERICAN > 90 mL/min (90-120)
[2020-03-08 06:31] LABS: MCV 91.2 fL (80.0-100.0)
--- NOTE | 2020-03-08 10:16 | NUR ---
Nutrition follow-up: Pt s/p trach, PEG placement 03/07 Pulmocare to resume today @ 50 ml/hr Labs reviewed Wt: 219# RDN following.
--- NOTE | 2020-03-08 21:33 | MORECARE ---
CASE MANAGEMENT DISCHARGE SUMMARY PATIENT: DENNIS KHAN UNIT: [id number] ADM DATE: 02/09/20 AGE: 59 : 56 SEX: F ROOM/BED: D.2314 AUTHOR: RICKY,DOC PHYSICIAN: REFERRING PHYSICIAN: URBANO EDDY DO DATE OF SERVICE: 03/08/20 Discharge Plan Patient Name: DENNIS KHAN Facility: [facility]:[place] : 1960 Planned Disposition: Anticipated Discharge Date: Discharge Date: Expected LOS: Initial Reviewer: [email or web address] Initial Review Date: 02/09/2020 Generated: 03/08/20 10:32 pm Comments DCP- Discharge Planning Updated by [email or web address]: Samantha Navarrete on 03/08/20 8:[address] CM will contact family regarding LTACH placement on Wednesday. CM will need to check to see which facilities are taking COVID patients. CM will continue to follow and assist as needed with d/c planning DCP- Discharge Planning Updated by [email or web address]: Tamela Smith on 02/16/20 3:[address] CM contacted spouse, Tyrell Yoon @[phone], to discuss initial DC planning. Spouse is in agreement to proceed with the assessment. Patient is currently sedated and intubated on a mechanical vent. Per patient's spouse, patient lives independently in her home, with him. 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 [facility]. HHS: No. DME: None. Emergency contact: Tyrell Yoon and (son) Salazar Yoon #[phone]. Patient is Independent with all ADL's, medication management CAR SHAKEOUT OPERATOR. CM discussed the availability of HH, Rehab, SNF, OP Therapy, DME services. Patient would benefit from Rehab or HHS upon DC. Spouse agrees to Rehab prior to returning home, if needed. Spouse denies hospitalization within the past 30 days. Spouse denies the use of community resources CAR SHAKEOUT OPERATOR. Transportation at time of discharge: Spouse or son. CM will follow and assist PRN with DC needs/plans. DCPIA - Discharge Planning Initial Assessment Updated by [email or web address]: Tamela Smith on 02/16/20 4:05 pm * Is the patient Alert and Oriented? No * How many steps to enter\exit or inside your home? * PCP Unknown at present * Pharmacy [facility], [place] * Preadmission Environment Home with Family * ADLs Independent * Equipment None * Other Equipment NA * List name and contact numbers for known caregivers / representatives who currently or will assist patient after discharge: Tyrell Yoon (spouse) [phone] Salazar Khan (son) [phone] * Verbal permission to speak to the caregivers and representatives has been obtained from the patient. N/A * Community resources currently utilized None * Please name any agencies selected above. NA * Additional services required to return to the preadmission environment? Yes * Can the patient safely return to the preadmission environment? Yes * Has this patient been hospitalized within the prior 30 days at any hospital? No Last DP export: 02/29/20 12:56 p Patient Name: DENNIS KHAN Page 71681 at 2133 All edits/amendments must be made on the electronic document DICTATION DATE: 03/08/202132 BRICK WHEELER: SHELBY 03/08/202132 RPT#: [id number] DC DATE: STATUS: ADM IN [facility] [address] [place] [address] END OF REPORT
[2020-03-09] VITALS (24 sets, daily range): BP systolic 89–123; BP diastolic 46–67
[2020-03-09 06:15] LABS: BASOPHILS 0 % (0-2); EOSINOPHILS 0 % (0-7); HEMATOCRIT 30.3 % (36.0-48.0); HEMOGLOBIN 9.3 g/dL (12-16); IMMATURE GRANULOCYTES 0.5 % (0-5); LYMPHOCYTES 3.1 % (15-50); MCH 28.7 pg (26.0-34.0); MCHC 30.7 g/dL (31.0-37.0); MEAN PLATELET VOLUME 8.5 fL (7.4-10.4); NEUTROPHILS 91.4 % (40-80); RBC 3.24 10x6/uL (4.00-5.40); RDW 15.3 % (11.5-14.5); WBC 12.7 10x3/uL (4.8-10.8)
[2020-03-09 06:23] LABS: MCV 93.5 fL (80.0-100.0); PLATELET COUNT 271 10x3/uL (130-400)
[2020-03-09 06:55] LABS: ALBUMIN 2.1 g/dL (3.4-5.0); ALKALINE PHOSPHATASE 110 U/L (30-120); BILIRUBIN - TOTAL 0.89 mg/dL (0.2-1.3); CALCIUM 10.6 mg/dL (8.5-10.1); CARBON DIOXIDE 28.5 mmol/L (21.0-32.0); CHLORIDE - SERUM 100 mmol/L (98-107); CREATININE - SERUM 0.6 mg/dL (0.6-1.3); FERRITIN 924 ng/mL (3-244); GLUCOSE 113 mg/dL (74-106); POTASSIUM - SERUM 4.1 mmol/L (3.5-5.1); PROTEIN - SERUM 6.4 g/dL (6.4-8.2); SODIUM 135 mmol/L (136-145); eGFR NON AFRICAN AMERICAN > 90 mL/min (90-120)
[2020-03-09 06:59] LABS: ALT (SGPT) 87 U/L (10-68); CALC OSMOLALITY 277 mosm/kg (275-300); UREA NITROGEN 32 mg/dL (7-18)
[2020-03-09 07:06] LABS: C-REACTIVE PROTEIN 20.3 mg/dL (0.0-0.9)
--- NOTE | 2020-03-09 15:25 | NUR ---
CHG BATH PROVIDED. TOTAL LINEN CHANGE PROVIDED, ELZBIETA CARE/ORTIZ CARE PROVIDED. SMALL INCONTINENT BOWEL MOVEMENT NOTED. BED ALARM ON. WILL CONTINUE PLAN OF CARE.
[2020-03-10] VITALS (24 sets, daily range): BP systolic 80–135; BP diastolic 47–74
[2020-03-10 06:46] LABS: BASOPHILS 0 % (0-2); EOSINOPHILS 0 % (0-7); HEMATOCRIT 28.5 % (36.0-48.0); HEMOGLOBIN 8.6 g/dL (12-16); IMMATURE GRANULOCYTES 0.4 % (0-5); MCH 28.2 pg (26.0-34.0); MCHC 30.2 g/dL (31.0-37.0); MCV 93.4 fL (80.0-100.0); MEAN PLATELET VOLUME 8.6 fL (7.4-10.4); MONOCYTES 4.1 % (2-11); NEUTROPHILS 93.5 % (40-80); PLATELET COUNT 273 10x3/uL (130-400); RBC 3.05 10x6/uL (4.00-5.40); RDW 14.8 % (11.5-14.5); WBC 13.6 10x3/uL (4.8-10.8)
[2020-03-10 06:56] LABS: INR 1.41 (0.85-1.17); PROTIME 17.2 SECONDS (11.6-15.0)
[2020-03-10 07:29] LABS: ALBUMIN 1.9 g/dL (3.4-5.0); ALKALINE PHOSPHATASE 118 U/L (30-120); ALT (SGPT) 80 U/L (10-68); BILIRUBIN - TOTAL 0.75 mg/dL (0.2-1.3); CALC OSMOLALITY 280 mosm/kg (275-300); CALCIUM 10.4 mg/dL (8.5-10.1); CARBON DIOXIDE 27.8 mmol/L (21.0-32.0); CHLORIDE - SERUM 100 mmol/L (98-107); CREATININE - SERUM 0.5 mg/dL (0.6-1.3); FERRITIN 850 ng/mL (3-244); GLUCOSE 116 mg/dL (74-106); POTASSIUM - SERUM 3.8 mmol/L (3.5-5.1); PRO BNP 601 pg/mL (0-125); PROTEIN - SERUM 6.2 g/dL (6.4-8.2); SODIUM 136 mmol/L (136-145); UREA NITROGEN 35 mg/dL (7-18); eGFR NON AFRICAN AMERICAN > 90 mL/min (90-120)
--- NOTE | 2020-03-10 11:32 | NUR ---
SPOKE WITH PTS FAMILY AT THIS TIME. UPDATES PROVIDED.
[2020-03-11] VITALS (24 sets, daily range): BP systolic 94–135; BP diastolic 49–94
[2020-03-11 05:07] LABS: VIRAL - RESULT No virus isolated. (())
[2020-03-11 05:47] LABS: BASOPHILS 0 % (0-2); EOSINOPHILS 0 % (0-7); HEMOGLOBIN 8.5 g/dL (12-16); IMMATURE GRANULOCYTES 0.7 % (0-5); MCH 28.2 pg (26.0-34.0); MCHC 30.4 g/dL (31.0-37.0); MEAN PLATELET VOLUME 8.4 fL (7.4-10.4); MONOCYTES 5.9 % (2-11); NEUTROPHILS 89.4 % (40-80); PLATELET COUNT 225 10x3/uL (130-400); RBC 3.01 10x6/uL (4.00-5.40); RDW 14.7 % (11.5-14.5)
[2020-03-11 06:05] LABS: ALBUMIN 1.9 g/dL (3.4-5.0); ALKALINE PHOSPHATASE 100 U/L (30-120); ALT (SGPT) 79 U/L (10-68); BILIRUBIN - TOTAL 0.78 mg/dL (0.2-1.3); CALC OSMOLALITY 279 mosm/kg (275-300); CALCIUM 9.8 mg/dL (8.5-10.1); CHLORIDE - SERUM 101 mmol/L (98-107); CREATININE - SERUM 0.4 mg/dL (0.6-1.3); GLUCOSE 109 mg/dL (74-106); POTASSIUM - SERUM 3.8 mmol/L (3.5-5.1); PROTEIN - SERUM 5.6 g/dL (6.4-8.2); SODIUM 136 mmol/L (136-145); UREA NITROGEN 31 mg/dL (7-18); WBC 8.5 10x3/uL (4.8-10.8); eGFR NON AFRICAN AMERICAN > 90 mL/min (90-120)
[2020-03-11 10:08] LABS: FUNGUS MYCOLOGY CULTURE Final report (())
--- NOTE | 2020-03-11 12:41 | NUR ---
Nutrition follow-up: Pt with trach to vent PEG tube with Pulmocare gravity drip @ ~50 ml/hr Labs reviewed Wt: 218# Received order for Bolus tube feeding Recommend 5 cartons of Pulmocare per day 1 carton @ 0600 - 0900 - 1200 - 1500 - 1800 Flush with 60 ml H2O before, after each feed Thank you for the consult. RDN following.
--- NOTE | 2020-03-11 14:03 | NUR ---
BATH GIVEN. LINENS CHANGED. ORTIZ LEAKING AND CHANGED WITH 16 INDIAN ORTIZ PER LUCIANO MCKEE.
[2020-03-12] VITALS (24 sets, daily range): BP systolic 100–142; BP diastolic 40–69
[2020-03-12 07:03] LABS: ALBUMIN 1.9 g/dL (3.4-5.0); ALKALINE PHOSPHATASE 96 U/L (30-120); ALT (SGPT) 78 U/L (10-68); BILIRUBIN - TOTAL 0.58 mg/dL (0.2-1.3); CALC OSMOLALITY 279 mosm/kg (275-300); CALCIUM 9.9 mg/dL (8.5-10.1); CARBON DIOXIDE 26.9 mmol/L (21.0-32.0); CHLORIDE - SERUM 103 mmol/L (98-107); CREATININE - SERUM 0.5 mg/dL (0.6-1.3); GLUCOSE 111 mg/dL (74-106); POTASSIUM - SERUM 3.2 mmol/L (3.5-5.1); PROTEIN - SERUM 5.9 g/dL (6.4-8.2); SODIUM 137 mmol/L (136-145); UREA NITROGEN 27 mg/dL (7-18); eGFR NON AFRICAN AMERICAN > 90 mL/min (90-120)
[2020-03-12 07:33] LABS: BASOPHILS 0.1 % (0-2); EOSINOPHILS 0.1 % (0-7); HEMATOCRIT 23.6 % (36.0-48.0); IMMATURE GRANULOCYTES 0.6 % (0-5); LYMPHOCYTES 10.2 % (15-50); MCH 28.7 pg (26.0-34.0); MCHC 30.9 g/dL (31.0-37.0); MCV 92.9 fL (80.0-100.0); MEAN PLATELET VOLUME 8.8 fL (7.4-10.4); MONOCYTES 6.5 % (2-11); NEUTROPHILS 82.5 % (40-80); PLATELET COUNT 203 10x3/uL (130-400); RBC 2.54 10x6/uL (4.00-5.40); RDW 14.7 % (11.5-14.5); WBC 7.2 10x3/uL (4.8-10.8)
[2020-03-12 07:34] LABS: HEMOGLOBIN 7.3 g/dL (12-16)
[2020-03-12 09:30] LABS: BASOPHILS 0 % (0-2); EOSINOPHILS 0 % (0-7); HEMATOCRIT 26.7 % (36.0-48.0); HEMOGLOBIN 8.2 g/dL (12-16); IMMATURE GRANULOCYTES 0.5 % (0-5); LYMPHOCYTES 8.7 % (15-50); MCH 28.6 pg (26.0-34.0); MCHC 30.7 g/dL (31.0-37.0); MEAN PLATELET VOLUME 8.8 fL (7.4-10.4); MONOCYTES 6.6 % (2-11); NEUTROPHILS 84.2 % (40-80); PLATELET COUNT 198 10x3/uL (130-400); RBC 2.87 10x6/uL (4.00-5.40); RDW 14.6 % (11.5-14.5); WBC 7.3 10x3/uL (4.8-10.8)
--- NOTE | 2020-03-12 09:49 | OP ---
PATIENT NAME: DENNIS GREEN MEDICAL RECORD: [id number] :56 LOCATION:[facility] D.2314 ADMISSION DATE:02/09/20 SURGEON: BERNADINE PARKER MD DATE OF OPERATION: 03/01/2020 PREOPERATIVE DIAGNOSES: 1. Bacteremia. 2. Possible line related sepsis. 3. Acute respiratory failure on the ventilator. 4. COVID positive. POSTOPERATIVE DIAGNOSES: 1. Bacteremia. 2. Possible line related sepsis. 3. Acute respiratory failure on the ventilator. 4. COVID positive. PROCEDURE: Left subclavian vein triple-lumen central venous line exchange. SURGEON: Bernadine Parker MD REPORT OF PROCEDURE: The patient's left chest and indwelling central venous line were prepped and draped in sterile fashion. A 3 cc of 1% lidocaine with epinephrine was infused into the surrounding tissues. The guidewire was advanced through the distal port and the indwelling central line was removed and a new central venous line was placed over this wire and sutured into place with 3-0 nylons. The catheter aspirated nonpulsatile dark blood and flushed easily in all 3 ports. This was sutured into place with 3-0 nylons and dressed appropriately. COMPLICATIONS: None. CONDITION: Fair. ANESTHESIA: General endotracheal and local. BLOOD LOSS: Minimal. TRANSINT:[id number] Voice Confirmation ID: [id number] DOCUMENT ID: [id number] BERNADINE PARKER MD at 0949 CC: [id number] DICTATION DATE: 03/01/20 1458 MOTION PICTURE CAMERAMAN: 03/01/20 2133 ADM IN [place] [address] [place] [address]
--- NOTE | 2020-03-12 20:49 | MORECARE ---
CASE MANAGEMENT DISCHARGE SUMMARY PATIENT: DENNIS KHAN UNIT: [id number] ADM DATE: 02/09/20 AGE: 59 : 56 SEX: F ROOM/BED: D.2314 AUTHOR: RICKY,DOC PHYSICIAN: REFERRING PHYSICIAN: URBANO EDDY DO DATE OF SERVICE: 03/12/20 Discharge Plan Patient Name: DENNIS KHAN Facility: [facility]:[place] : 1960 Planned Disposition: Anticipated Discharge Date: Discharge Date: Expected LOS: Initial Reviewer: [email or web address] Initial Review Date: 02/09/2020 Generated: 03/12/20 9:49 pm Comments DCP- Discharge Planning Updated by [email or web address]: Samantha Navarrete on 03/12/20 7:[address] LATE ENTRY 03/11/20 CM spoke with patient's son Salazar [phone]. He requested for CM to find out if insurance will cover LTACH and what facilities are covered. CM spoke with rep at [facility] regarding coverage and according to the rep it should be a level 2 benefit and will be a 500.00 co pay and then 80% if family deductible has been met then will pay at 100%. As far as which facility as long as the facility takes [facility] [place] then it will be covered per CM understanding. PA will be required prior to admit. Call ref # [id number]. CM will speak with Salazar and convey the information for him to choose an LTACH. DCP- Discharge Planning Updated by [email or web address]: Samantha Navarrete on 03/08/20 8:[address] CM will contact family regarding LTACH placement on Wednesday. CM will need to check to see which facilities are taking COVID patients. CM will continue to follow and assist as needed with d/c planning DCP- Discharge Planning Updated by [email or web address]: Tamela Smith on 02/16/20 3:[address] CM contacted spouse, Tyrell Yoon @[phone], to discuss initial DC planning. Spouse is in agreement to proceed with the assessment. Patient is currently sedated and intubated on a mechanical vent. Per patient's spouse, patient lives independently in her home, with him. 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 Pharmacy: [facility], [place]. HHS: No. DME: None. Emergency contact: Tyrell Yoon and (son) Salazar Yoon #[phone]. Patient is Independent with all ADL's, medication management OPERATING ROOM NURSE. CM discussed the availability of HH, Rehab, SNF, OP Therapy, DME services. Patient would benefit from Rehab or HHS upon DC. Spouse agrees to Rehab prior to returning home, if needed. Spouse denies hospitalization within the past 30 days. Spouse denies the use of community resources OPERATING ROOM NURSE. Transportation at time of discharge: Spouse or son. CM will follow and assist PRN with DC needs/plans. DCPIA - Discharge Planning Initial Assessment Updated by [email or web address]: Tamela Smith on 02/16/20 4:05 pm * Is the patient Alert and Oriented? No * How many steps to enter\exit or inside your home? * PCP Unknown at present * Pharmacy [facility] [place] * Preadmission Environment Home with Family * ADLs Independent * Equipment None * Other Equipment NA * List name and contact numbers for known caregivers / representatives who currently or will assist patient after discharge: Tyrell Yoon (spouse) [phone] Salazar Khan (son) [phone] * Verbal permission to speak to the caregivers and representatives has been obtained from the patient. N/A * Community resources currently utilized None * Please name any agencies selected above. NA * Additional services required to return to the preadmission environment? Yes * Can the patient safely return to the preadmission environment? Yes * Has this patient been hospitalized within the prior 30 days at any hospital? No Last DP export: 03/08/20 8:33 p Patient Name: DENNIS KHAN Page 89031 at 204 All edits/amendments must be made on the electronic document DICTATION DATE: 03/12/202048 PIER MASTER ASSISTANT: SHELBY 03/12/202048 RPT#: [id number] DC DATE: STATUS: ADM IN [facility] [address] [place] [address] END OF REPORT
[2020-03-13] VITALS (23 sets, daily range): BP systolic 100–198; BP diastolic 47–86
[2020-03-13 05:36] LABS: CALCIUM 9.2 mg/dL (8.5-10.1); CARBON DIOXIDE 25.3 mmol/L (21.0-32.0); CHLORIDE - SERUM 105 mmol/L (98-107); GLUCOSE 86 mg/dL (74-106); POTASSIUM - SERUM 3.2 mmol/L (3.5-5.1); SODIUM 137 mmol/L (136-145)
[2020-03-13 05:37] LABS: CALC OSMOLALITY 274 mosm/kg (275-300); UREA NITROGEN 19 mg/dL (7-18)
[2020-03-13 05:38] LABS: CREATININE - SERUM 0.3 mg/dL (0.6-1.3); eGFR NON AFRICAN AMERICAN > 90 mL/min (90-120)
[2020-03-13 07:10] LABS: BASOPHILS 0.2 % (0-2); EOSINOPHILS 0.5 % (0-7); HEMATOCRIT 25.5 % (36.0-48.0); HEMOGLOBIN 7.8 g/dL (12-16); LYMPHOCYTES 15.1 % (15-50); MCH 28.1 pg (26.0-34.0); MCHC 30.6 g/dL (31.0-37.0); MCV 91.7 fL (80.0-100.0); MEAN PLATELET VOLUME 8.9 fL (7.4-10.4); MONOCYTES 6.2 % (2-11); PLATELET COUNT 209 10x3/uL (130-400); RBC 2.78 10x6/uL (4.00-5.40); RDW 14.7 % (11.5-14.5)
--- NOTE | 2020-03-13 11:20 | NUR ---
Nutrition follow-up: Pt remains with trach to vent PEG tube with Pulmocare @ 40 ml/hr; tolerating per nurse Labs reviewed Wt: 218# RDN following.
--- NOTE | 2020-03-13 15:49 | MORECARE ---
CASE MANAGEMENT DISCHARGE SUMMARY PATIENT: DENNIS KHAN UNIT: [id number] ADM DATE: 02/09/20 AGE: 59 : 56 SEX: F ROOM/BED: D.2314 AUTHOR: RICKY,DOC PHYSICIAN: REFERRING PHYSICIAN: URBANO EDDY DO DATE OF SERVICE: 03/13/20 Discharge Plan Patient Name: DENNIS KHAN Facility: [facility]:[place] : 1960 Planned Disposition: Anticipated Discharge Date: Discharge Date: Expected LOS: Initial Reviewer: [email or web address] Initial Review Date: 02/09/2020 Generated: 03/13/20 4:48 pm DCP- Discharge Planning Updated by [email or web address]: Samantha Navarrete on 03/13/20 2:[address] CM has attempted to call and text patients son Salazar [phone]. to give him the information on LTACH so that he can decide which facility he would like CM to send referral. CM left the information with nursing staff also incase he calls to check in on his mother. CM will continue to follow and assist as needed with discharge planning/ needs. DCP- Discharge Planning Updated by [email or web address]: Samantha Navarrete on 03/12/20 7:[address] LATE ENTRY 03/11/20 CM spoke with patient's son Salazar [phone]. He requested for CM to find out if insurance will cover LTACH and what facilities are covered. CM spoke with rep at [facility] regarding coverage and according to the rep it should be a level 2 benefit and will be a 500.00 co pay and then 80% if family deductible has been met then will pay at 100%. As far as which facility as long as the facility takes [facility] [place] then it will be covered per CM understanding. PA will be required prior to admit. Call ref # [id number]. CM will speak with Salazar and convey the information for him to choose an LTACH. DCP- Discharge Planning Updated by [email or web address]: Samantha Navarrete on 03/08/20 8:[address] CM will contact family regarding LTACH placement on Wednesday. CM will need to check to see which facilities are taking COVID patients. CM will continue to follow and assist as needed with d/c planning DCP- Discharge Planning Updated by [email or web address]: Tamela Abrahamlroy on 02/16/20 3:[address] CM contacted spouse, Tyrell Yoon @[phone], to discuss initial DC planning. Spouse is in agreement to proceed with the assessment. Patient is currently sedated and intubated on a mechanical vent. Per patient's spouse, patient lives independently in her home, with him. 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 Pharmacy: [facility]. HHS: No. DME: None. Emergency contact: Tyrell Yoon and (son) Salazar Yoon #[phone]. Patient is Independent with all ADL's, medication management SEWING MACHINE BOBBIN WINDER. CM discussed the availability of HH, Rehab, SNF, OP Therapy, DME services. Patient would benefit from Rehab or HHS upon DC. Spouse agrees to Rehab prior to returning home, if needed. Spouse denies hospitalization within the past 30 days. Spouse denies the use of community resources SEWING MACHINE BOBBIN WINDER. Transportation at time of discharge: Spouse or son. CM will follow and assist PRN with DC needs/plans. DCPIA - Discharge Planning Initial Assessment Updated by [email or web address]: Tamela Abrahamlroy on 02/16/20 4:05 pm * Is the patient Alert and Oriented? No * How many steps to enter\exit or inside your home? * PCP Unknown at present * Pharmacy [facility] [place] * Preadmission Environment Home with Family * ADLs Independent * Equipment None * Other Equipment NA * List name and contact numbers for known caregivers / representatives who currently or will assist patient after discharge: Tyrell Yoon (spouse) [phone] Salazar Khan (son) [phone] * Verbal permission to speak to the caregivers and representatives has been obtained from the patient. N/A * Community resources currently utilized None * Please name any agencies selected above. NA * Additional services required to return to the preadmission environment? Yes * Can the patient safely return to the preadmission environment? Yes * Has this patient been hospitalized within the prior 30 days at any hospital? No Last DP export: 03/12/20 7:49 p Patient Name: DENNIS KHAN Page 50429 at 1549 All edits/amendments must be made on the electronic document DICTATION DATE: 03/13/201547 PILER: SHELBY 03/13/208 RPT#: [id number] DC DATE: STATUS: ADM IN [facility] [address] [place] [address] END OF REPORT
[2020-03-14] VITALS (22 sets, daily range): BP systolic 104–156; BP diastolic 9–79
[2020-03-14 05:06] LABS: BASOPHILS 0.2 % (0-2); EOSINOPHILS 0.5 % (0-7); HEMATOCRIT 24.9 % (36.0-48.0); HEMOGLOBIN 7.8 g/dL (12-16); IMMATURE GRANULOCYTES 1.7 % (0-5); MCH 28.7 pg (26.0-34.0); MCHC 31.3 g/dL (31.0-37.0); MCV 91.5 fL (80.0-100.0); MEAN PLATELET VOLUME 8.4 fL (7.4-10.4); MONOCYTES 4.6 % (2-11); PLATELET COUNT 175 10x3/uL (130-400); RBC 2.72 10x6/uL (4.00-5.40); RDW 14.6 % (11.5-14.5); WBC 6.6 10x3/uL (4.8-10.8)
[2020-03-14 05:10] LABS: CALC OSMOLALITY 275 mosm/kg (275-300); CARBON DIOXIDE 25.7 mmol/L (21.0-32.0); CHLORIDE - SERUM 104 mmol/L (98-107); CREATININE - SERUM 0.3 mg/dL (0.6-1.3); GLUCOSE 108 mg/dL (74-106); MAGNESIUM - SERUM 1.5 mg/dL (1.8-2.4); POTASSIUM - SERUM 3.2 mmol/L (3.5-5.1); SODIUM 137 mmol/L (136-145); UREA NITROGEN 15 mg/dL (7-18); eGFR NON AFRICAN AMERICAN > 90 mL/min (90-120)
--- NOTE | 2020-03-14 10:11 | NUR ---
CPAP TRIALS STARTED
--- NOTE | 2020-03-14 10:58 | NUR ---
CPAP 15/8 @1015 FOR 1-2 HRS
--- NOTE | 2020-03-14 15:24 | MORECARE ---
CASE MANAGEMENT DISCHARGE SUMMARY PATIENT: DENNIS KHAN UNIT: [id number] ADM DATE: 02/09/20 AGE: 59 : 56 SEX: F ROOM/BED: D.2314 AUTHOR: RICKY,DOC PHYSICIAN: REFERRING PHYSICIAN: URBANO EDDY DO DATE OF SERVICE: 03/14/20 Discharge Plan Patient Name: DENNIS KHAN Facility: [facility]:[place] : 1960 Planned Disposition: Anticipated Discharge Date: Discharge Date: Expected LOS: Initial Reviewer: [email or web address] Initial Review Date: 02/09/2020 Generated: 03/14/20 4:24 pm DCP- Discharge Planning Updated by [email or web address]: Samantha Navarrete on 03/13/20 2:[address] CM has attempted to call and text patients son Salazar [phone]. to give him the information on LTACH so that he can decide which facility he would like CM to send referral. CM left the information with nursing staff also incase he calls to check in on his mother. CM will continue to follow and assist as needed with discharge planning/ needs. DCP- Discharge Planning Updated by [email or web address]: Samantha Navarrete on 03/12/20 7:[address] LATE ENTRY 03/11/20 CM spoke with patient's son Salazar [phone]. He requested for CM to find out if insurance will cover LTACH and what facilities are covered. CM spoke with rep at [facility] regarding coverage and according to the rep it should be a level 2 benefit and will be a 500.00 co pay and then 80% if family deductible has been met then will pay at 100%. As far as which facility as long as the facility takes [facility] [place] then it will be covered per CM understanding. PA will be required prior to admit. Call ref # [id number]. CM will speak with Salazar and convey the information for him to choose an LTACH. DCP- Discharge Planning Updated by [email or web address]: Samantha Navarrete on 03/08/20 8:[address] CM will contact family regarding LTACH placement on Wednesday. CM will need to check to see which facilities are taking COVID patients. CM will continue to follow and assist as needed with d/c planning DCP- Discharge Planning Updated by [email or web address]: Tamela Abrahamlroy on 02/16/20 3:[address] CM contacted spouse, Tyrell Yoon @[phone], to discuss initial DC planning. Spouse is in agreement to proceed with the assessment. Patient is currently sedated and intubated on a mechanical vent. Per patient's spouse, patient lives independently in her home, with him. 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 Pharmacy: [facility]. HHS: No. DME: None. Emergency contact: Tyrell Yoon and (son) Salazar Yoon #[phone]. Patient is Independent with all ADL's, medication management ROLLS MILL OPERATOR. CM discussed the availability of HH, Rehab, SNF, OP Therapy, DME services. Patient would benefit from Rehab or HHS upon DC. Spouse agrees to Rehab prior to returning home, if needed. Spouse denies hospitalization within the past 30 days. Spouse denies the use of community resources ROLLS MILL OPERATOR. Transportation at time of discharge: Spouse or son. CM will follow and assist PRN with DC needs/plans. DCPIA - Discharge Planning Initial Assessment Updated by [id number]: Tamela Abrahamlroy on 02/16/20 4:05 pm * Is the patient Alert and Oriented? No * How many steps to enter\exit or inside your home? * PCP Unknown at present * Pharmacy [facility] [place] * Preadmission Environment Home with Family * ADLs Independent * Equipment None * Other Equipment NA * List name and contact numbers for known caregivers / representatives who currently or will assist patient after discharge: Tyrell Yoon (spouse) [phone] Salazar Khan (son) [phone] * Verbal permission to speak to the caregivers and representatives has been obtained from the patient. N/A * Community resources currently utilized None * Please name any agencies selected above. NA * Additional services required to return to the preadmission environment? Yes * Can the patient safely return to the preadmission environment? Yes * Has this patient been hospitalized within the prior 30 days at any hospital? No External Providers External Provider: [facility] Next Contact Date: Service Request Date: Service Type: Resolution: Reviewer: Comments: Last DP export: 03/13/20 2:49 p Patient Name: DENNIS KHAN Page 43714 at 1524 All edits/amendments must be made on the electronic document DICTATION DATE: 03/14/201523 MAILHOUSE OPERATOR: SHELBY 03/14/201523 RPT#: [id number] ID DATE: STATUS: ADM IN [facility] [address] [place] [address] END OF REPORT
--- NOTE | 2020-03-14 18:55 | MORECARE ---
CASE MANAGEMENT DISCHARGE SUMMARY PATIENT: DENNIS KHAN UNIT: [id number] ADM DATE: 02/09/20 AGE: 59 : 56 SEX: F ROOM/BED: D.2314 AUTHOR: RICKY,DOC PHYSICIAN: REFERRING PHYSICIAN: URBANO EDDY DO DATE OF SERVICE: 03/14/20 Discharge Plan Patient Name: DENNIS KHAN Facility: [facility]:[place] : 1960 Planned Disposition: Anticipated Discharge Date: Discharge Date: Expected LOS: Initial Reviewer: [email or web address] Initial Review Date: 02/09/2020 Generated: 03/14/20 7:54 pm Comments DCP- Discharge Planning Updated by [email or web address]: Samantha Navarrete on 03/14/20 5:[address] CM received a message back from Salazar her son to send referral packet to [facility]. SHAYNA completed. CM faxed packet to Lorin. CM will continue to follow and assist as needed with discharge planning / needs. DCP- Discharge Planning Updated by [id number]: Samantha Navarrete on 03/13/20 2:[address] TI has attempted to call and text patients son Salazar [phone]. to give him the information on LTACH so that he can decide which facility he would like CM to send referral. TI left the information with nursing staff also incase he calls to check in on his mother. CM will continue to follow and assist as needed with discharge planning/ needs. DCP- Discharge Planning Updated by [id number]: Samantha Navarrete on 03/12/20 7:[address] LATE ENTRY 03/11/20 TI spoke with patient's son Salazar [phone]. He requested for CM to find out if insurance will cover LTACH and what facilities are covered. TI spoke with rep at [facility] regarding coverage and according to the rep it should be a level 2 benefit and will be a 500.00 co pay and then 80% if family deductible has been met then will pay at 100%. As far as which facility as long as the facility takes [facility] of [place] then it will be covered per CM understanding. PA will be required prior to admit. Call ref # [id number]. CM will speak with Salazar and convey the information for him to choose an LTACH. DCP- Discharge Planning Updated by [email or web address]: Samantha Navarrete on 03/08/20 8:[address] CM will contact family regarding LTACH placement on Wednesday. CM will need to check to see which facilities are taking COVID patients. CM will continue to follow and assist as needed with d/c planning DCP- Discharge Planning Updated by [email or web address]: Tamela Smith on 02/16/20 3:[address] CM contacted spouse, Tyrell Yoon @[phone], to discuss initial DC planning. Spouse is in agreement to proceed with the assessment. Patient is currently sedated and intubated on a mechanical vent. Per patient's spouse, patient lives independently in her home, with him. 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 Pharmacy: [facility]. HHS: No. DME: None. Emergency contact: Tyrell Karrie and (son) Salazar Yoon #[phone]. Patient is Independent with all ADL's, medication management SALESPERSON AUTOMOBILES. CM discussed the availability of HH, Rehab, SNF, OP Therapy, DME services. Patient would benefit from Rehab or HHS upon DC. Spouse agrees to Rehab prior to returning home, if needed. Spouse denies hospitalization within the past 30 days. Spouse denies the use of community resources SALESPERSON AUTOMOBILES. Transportation at time of discharge: Spouse or son. CM will follow and assist PRN with DC needs/plans. DCPIA - Discharge Planning Initial Assessment Updated by [id number]: Tamela Smith on 02/16/20 4:05 pm * Is the patient Alert and Oriented? No * How many steps to enter\exit or inside your home? * PCP Unknown at present * Pharmacy [facility] [place] * Preadmission Environment Home with Family * ADLs Independent * Equipment None * Other Equipment NA * List name and contact numbers for known caregivers / representatives who currently or will assist patient after discharge: Tyrell Vasquezly (spouse) [phone] Salazar Khan (son) [phone] * Verbal permission to speak to the caregivers and representatives has been obtained from the patient. N/A * Community resources currently utilized None * Please name any agencies selected above. NA * Additional services required to return to the preadmission environment? Yes * Can the patient safely return to the preadmission environment? Yes * Has this patient been hospitalized within the prior 30 days at any hospital? No Last DP export: 03/14/20 2:24 p Patient Name: DENNIS KHAN Page [id number] at 1855 All edits/amendments must be made on the electronic document DICTATION DATE: 03/14/201853 SUPERVISOR ACCOUNTS RECEIVABLE: SHELBY 03/14/201853 RPT#: [id number] DC DATE: STATUS: ADM IN [facility] [address] [place] [address] END OF REPORT
--- NOTE | 2020-03-14 21:58 | MORECARE ---
CASE MANAGEMENT DISCHARGE SUMMARY PATIENT: DENNIS KHAN UNIT: [id number] ADM DATE: 02/09/20 AGE: 59 : 56 SEX: F ROOM/BED: D.2314 AUTHOR: RICKY,DOC PHYSICIAN: REFERRING PHYSICIAN: URBANO EDDY DO DATE OF SERVICE: 03/14/20 Discharge Plan Patient Name: DENNIS KHAN Facility: [facility]:[place] : 1960 Planned Disposition: Anticipated Discharge Date: Discharge Date: Expected LOS: Initial Reviewer: [email or web address] Initial Review Date: 02/09/2020 Generated: 03/14/20 10:58 pm Comments DCP- Discharge Planning Updated by [email or web address]: Samantha Navarrete on 03/14/20 5:[address] CM received a message back from Elana her son to send referral packet to [facility]. SHAYNA completed. CM faxed packet to Lorin. CM will continue to follow and assist as needed with discharge planning / needs. DCP- Discharge Planning Updated by [id number]: Samantha Navarrete on 03/13/20 2:[address] CM has attempted to call and text patients son Elana [phone]. to give him the information on LTACH so that he can decide which facility he would like CM to send referral. TI left the information with nursing staff also incase he calls to check in on his mother. CM will continue to follow and assist as needed with discharge planning/ needs. DCP- Discharge Planning Updated by [id number]: Samantha Navarrete on 03/12/20 7:[address] LATE ENTRY 03/11/20 TI spoke with patient's son Elana [phone]. He requested for CM to find out if insurance will cover LTACH and what facilities are covered. TI spoke with rep at [facility] regarding coverage and according to the rep it should be a level 2 benefit and will be a 500.00 co pay and then 80% if family deductible has been met then will pay at 100%. As far as which facility as long as the facility takes [facility] of [place] then it will be covered per CM understanding. PA will be required prior to admit. Call ref # [id number]. CM will speak with Elana and convey the information for him to choose an LTACH. DCP- Discharge Planning Updated by [email or web address]: Samantha Navarrete on 03/08/20 8:[address] CM will contact family regarding LTACH placement on Wednesday. CM will need to check to see which facilities are taking COVID patients. CM will continue to follow and assist as needed with d/c planning DCP- Discharge Planning Updated by [email or web address]: Tamela Smith on 02/16/20 3:[address] CM contacted spouse, Tyrell Yoon @[phone], to discuss initial DC planning. Spouse is in agreement to proceed with the assessment. Patient is currently sedated and intubated on a mechanical vent. Per patient's spouse, patient lives independently in her home, with him. 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 Pharmacy: Replaced by [facility]. HHS: No. DME: None. Emergency contact: Tyrell Karrie and (son) Elana Yoon #[phone]. Patient is Independent with all ADL's, medication management CUT ROLL MACHINE OPERATOR. CM discussed the availability of HH, Rehab, SNF, OP Therapy, DME services. Patient would benefit from Rehab or HHS upon DC. Spouse agrees to Rehab prior to returning home, if needed. Spouse denies hospitalization within the past 30 days. Spouse denies the use of community resources CUT ROLL MACHINE OPERATOR. Transportation at time of discharge: Spouse or son. CM will follow and assist PRN with DC needs/plans. DCPIA - Discharge Planning Initial Assessment Updated by [email or web address]: Tamela Smith on 02/16/20 4:05 pm * Is the patient Alert and Oriented? No * How many steps to enter\exit or inside your home? * PCP Unknown at present * Pharmacy [facility] [place] * Preadmission Environment Home with Family * ADLs Independent * Equipment None * Other Equipment NA * List name and contact numbers for known caregivers / representatives who currently or will assist patient after discharge: Tyrell Vasquezly (spouse) [phone] Elana Khan (son) [phone] * Verbal permission to speak to the caregivers and representatives has been obtained from the patient. N/A * Community resources currently utilized None * Please name any agencies selected above. NA * Additional services required to return to the preadmission environment? Yes * Can the patient safely return to the preadmission environment? Yes * Has this patient been hospitalized within the prior 30 days at any hospital? No Coverage Notice Reviewer: [id number] Mykel Navarrete Notice Issued Date-Time: 03/14/2020 12:55 Notice Type: Patient Choice Letter Notice Delivered To: Family Member Relationship to Patient: Son Robotics Systems Engineer Name: ELANA KHAN Delivery Method: HAND - Hand Delivered Carrie Days: Prior Verbal Notification: Yes Recipient Understood Notice: Yes Recipient Signature: Med Rec Note Co-signed by Attending: Coverage Notice Comment: Last DP export: 03/14/20 5:55 p Patient Name: DENNIS KHAN Page [id number] at 2158 All edits/amendments must be made on the electronic document DICTATION DATE: 03/14/202157 SUPERVISOR EXTRUDING DEPARTMENT: SHELBY 03/14/202157 RPT#: [id number] DC DATE: STATUS: ADM IN [facility] [address] [place] [address] END OF REPORT
[2020-03-15] VITALS (23 sets, daily range): BP systolic 90–183; BP diastolic 50–81
--- NOTE | 2020-03-15 13:02 | NUR ---
Nutrition Follow-up: Pt in droplet isolation; covid-19+. On vent. Receiving Pulmocare @ 30 this AM. Wt: 228.8# (03/15) Labs reviewed Meds noted: Lasix, Albumin, Florajen, Protonix, Reglan, NS @ 100, elec prot -RD following.
[2020-03-16] VITALS (24 sets, daily range): BP systolic 103–176; BP diastolic 45–98
[2020-03-16 05:27] LABS: BASOPHILS 0 % (0-2); EOSINOPHILS 0.3 % (0-7); HEMATOCRIT 32.6 % (36.0-48.0); HEMOGLOBIN 10.5 g/dL (12-16); IMMATURE GRANULOCYTES 0.9 % (0-5); LYMPHOCYTES 11.2 % (15-50); MCH 29.3 pg (26.0-34.0); MCHC 32.2 g/dL (31.0-37.0); MCV 91.1 fL (80.0-100.0); MEAN PLATELET VOLUME 8.7 fL (7.4-10.4); MONOCYTES 3.2 % (2-11); NEUTROPHILS 84.4 % (40-80); PLATELET COUNT 193 10x3/uL (130-400); RBC 3.58 10x6/uL (4.00-5.40); RDW 14.9 % (11.5-14.5); WBC 9.7 10x3/uL (4.8-10.8)
[2020-03-16 05:53] LABS: CALC OSMOLALITY 276 mosm/kg (275-300); CALCIUM 9.2 mg/dL (8.5-10.1); CARBON DIOXIDE 27.3 mmol/L (21.0-32.0); CHLORIDE - SERUM 105 mmol/L (98-107); CREATININE - SERUM 0.3 mg/dL (0.6-1.3); GLUCOSE 104 mg/dL (74-106); MAGNESIUM - SERUM 1.8 mg/dL (1.8-2.4); PHOSPHOROUS 2.2 mg/dL (2.5-4.9); SODIUM 139 mmol/L (136-145); UREA NITROGEN 11 mg/dL (7-18); eGFR NON AFRICAN AMERICAN > 90 mL/min (90-120)
[2020-03-17] VITALS (24 sets, daily range): BP systolic 95–154; BP diastolic 56–81
[2020-03-17 05:42] LABS: BASOPHILS 0 % (0-2); EOSINOPHILS 0 % (0-7); HEMATOCRIT 29.5 % (36.0-48.0); HEMOGLOBIN 9.4 g/dL (12-16); IMMATURE GRANULOCYTES 0.5 % (0-5); LYMPHOCYTES 11.7 % (15-50); MCH 29.2 pg (26.0-34.0); MCHC 31.9 g/dL (31.0-37.0); MCV 91.6 fL (80.0-100.0); MEAN PLATELET VOLUME 8.6 fL (7.4-10.4); MONOCYTES 3.4 % (2-11); NEUTROPHILS 84.4 % (40-80); PLATELET COUNT 185 10x3/uL (130-400); RBC 3.22 10x6/uL (4.00-5.40); WBC 10.8 10x3/uL (4.8-10.8)
[2020-03-17 06:04] LABS: ALBUMIN 2.3 g/dL (3.4-5.0); ALKALINE PHOSPHATASE 82 U/L (30-120); ALT (SGPT) 45 U/L (10-68); BILIRUBIN - TOTAL 1.08 mg/dL (0.2-1.3); CALC OSMOLALITY 273 mosm/kg (275-300); CALCIUM 9.3 mg/dL (8.5-10.1); CARBON DIOXIDE 31.5 mmol/L (21.0-32.0); CHLORIDE - SERUM 102 mmol/L (98-107); CREATININE - SERUM 0.3 mg/dL (0.6-1.3); GLUCOSE 100 mg/dL (74-106); POTASSIUM - SERUM 3.1 mmol/L (3.5-5.1); PROTEIN - SERUM 5.7 g/dL (6.4-8.2); SODIUM 137 mmol/L (136-145); UREA NITROGEN 13 mg/dL (7-18); eGFR NON AFRICAN AMERICAN > 90 mL/min (90-120)
--- NOTE | 2020-03-17 15:28 | NUR ---
hibclens bath given with linen change. bowman cath replaced in soil field technician. 16 irish inserted without difficulty. immediate return of odalys urine. patient tolerated well.
--- NOTE | 2020-03-17 16:35 | MORECARE ---
CASE MANAGEMENT DISCHARGE SUMMARY PATIENT: DENNIS KHAN UNIT: [id number] ADM DATE: 02/09/20 AGE: 59 : 56 SEX: F ROOM/BED: D.2314 AUTHOR: RICKY,DOC PHYSICIAN: REFERRING PHYSICIAN: URBANO EDDY DO DATE OF SERVICE: 03/17/20 Discharge Plan Patient Name: DENNIS KHAN Facility: [facility]:[place] : 1960 Planned Disposition: Anticipated Discharge Date: Discharge Date: Expected LOS: Initial Reviewer: [email or web address] Initial Review Date: 02/09/2020 Generated: 03/17/20 5:35 pm Comments DCP- Discharge Planning Updated by [id number]: Elvin Medina on 03/17/20 3:[address] CM attempted to call spouse of patient (Tyrell) at [phone] to discuss LTAC options. CM attempted to call sonElana at [phone], Elana's spouse answered and gave alternate number for Elana (number undisclosed) and an alternate number for Tyrell ([phone]). Spoke with Elana. Elana stated that TI Henriquez is handling placement and has been working on attempts for [facility] vs [facility]. For continuity, this CM will notify active CM of correspondence and take no further action. CM will continue to follow and will assist as needed with dc plans/needs. DCP- Discharge Planning Updated by [email or web address]: Samantha Navarrete on 03/14/20 5:[address] CM received a message back from Elana her son to send [facility] SHAYNA completed. CM faxed packet to Lorin. CM will continue to follow and assist as needed with discharge planning / needs. DCP- Discharge Planning Updated by [id number]: Samantha Navarrete on 03/13/20 2:[address] CM has attempted to call and text patients son Elana [phone]. to give him the information on LTACH so that he can decide which facility he would like CM to send referral. CM left the information with nursing staff also incase he calls to check in on his mother. CM will continue to follow and assist as needed with discharge planning/ needs. DCP- Discharge Planning Updated by [id number]: Samantha Navarrete on 03/12/20 7:[address] LATE ENTRY 03/11/20 CM spoke with patient's son Elana [phone]. He requested for CM to find out if insurance will cover LTACH and what facilities are covered. CM spoke with rep at [facility] regarding coverage and according to the rep it should be a level 2 benefit and will be a 500.00 co pay and then 80% if family deductible has been met then will pay at 100%. As far as which facility as long as the facility takes [facility] of [place] then it will be covered per CM understanding. PA will be required prior to admit. Call ref # [id number]. CM will speak with Elana and convey the information for him to choose an LTACH. DCP- Discharge Planning Updated by [id number]: Samantha Navarrete on 03/08/20 8:[address] CM will contact family regarding LTACH placement on Wednesday. CM will need to check to see which facilities are taking COVID patients. CM will continue to follow and assist as needed with d/c planning DCP- Discharge Planning Updated by [id number]: Tamela Abrahamlroy on 02/16/20 3:[address] CM contacted spouse, Tyrell Yoon @[phone], to discuss initial DC planning. Spouse is in agreement to proceed with the assessment. Patient is currently sedated and intubated on a mechanical vent. Per patient's spouse, patient lives independently in her home, with him. 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 [facility]. HHS: No. DME: None. Emergency contact: Tyrell Yoon and (son) Elana Yoon #[phone]. Patient is Independent with all ADL's, medication management HEADHUNTER. CM discussed the availability of HH, Rehab, SNF, OP Therapy, DME services. Patient would benefit from Rehab or HHS upon DC. Spouse agrees to Rehab prior to returning home, if needed. Spouse denies hospitalization within the past 30 days. Spouse denies the use of community resources HEADHUNTER. Transportation at time of discharge: Spouse or son. CM will follow and assist PRN with DC needs/plans. DCPIA - Discharge Planning Initial Assessment Updated by [email or web address]: Tamela Smith on 02/16/20 4:05 pm * Is the patient Alert and Oriented? No * How many steps to enter\exit or inside your home? * PCP Unknown at present * Pharmacy [facility] [place] * Preadmission Environment Home with Family * ADLs Independent * Equipment None * Other Equipment NA * List name and contact numbers for known caregivers / representatives who currently or will assist patient after discharge: Tyrell Karrie (spouse) [phone] Elana Khan (son) [phone] * Verbal permission to speak to the caregivers and representatives has been obtained from the patient. N/A * Community resources currently utilized None * Please name any agencies selected above. NA * Additional services required to return to the preadmission environment? Yes * Can the patient safely return to the preadmission environment? Yes * Has this patient been hospitalized within the prior 30 days at any hospital? No Coverage Notice Reviewer: [id number] Mykel Navarrete Notice Issued Date-Time: 03/14/2020 12:55 Notice Type: Patient Choice Letter Notice Delivered To: Family Member Relationship to Patient: Son Music Pastor Name: ELANA KHAN Delivery Method: HAND - Hand Delivered Carrie Days: Prior Verbal Notification: Yes Recipient Understood Notice: Yes Recipient Signature: Edwin Rec Note Co-signed by Attending: Coverage Notice Comment: Last DP export: 03/14/20 8:58 p Patient Name: DENNIS KHAN Page 70641 at 1635 All edits/amendments must be made on the electronic document DICTATION DATE: 03/17/20 1635 FRAUD MANAGER: SHELBY 03/17/20 1635 RPT#: [id number] DC DATE: STATUS: ADM IN [facility] [address] [place] [address] END OF REPORT
--- NOTE | 2020-03-17 17:32 | NUR ---
TUBE FEEDING RESTARTED PER ORDERS OF AT 10 ML HOUR. DO NOT HAVE TO INCREASE
[2020-03-18] VITALS (25 sets, daily range): BP systolic 105–205; BP diastolic 65–109
[2020-03-18 04:59] LABS: BASOPHILS 0 % (0-2); EOSINOPHILS 0.3 % (0-7); HEMATOCRIT 31.4 % (36.0-48.0); HEMOGLOBIN 9.9 g/dL (12-16); LYMPHOCYTES 11.4 % (15-50); MCH 28.7 pg (26.0-34.0); MCHC 31.5 g/dL (31.0-37.0); MEAN PLATELET VOLUME 8.6 fL (7.4-10.4); MONOCYTES 5.7 % (2-11); NEUTROPHILS 81.6 % (40-80); RBC 3.45 10x6/uL (4.00-5.40); RDW 14.5 % (11.5-14.5); WBC 9.9 10x3/uL (4.8-10.8)
[2020-03-18 05:12] LABS: PLATELET COUNT 227 10x3/uL (130-400)
[2020-03-18 05:31] LABS: CALC OSMOLALITY 270 mosm/kg (275-300); CALCIUM 9.5 mg/dL (8.5-10.1); CARBON DIOXIDE 29.7 mmol/L (21.0-32.0); CHLORIDE - SERUM 100 mmol/L (98-107); GLUCOSE 97 mg/dL (74-106); MAGNESIUM - SERUM 1.9 mg/dL (1.8-2.4); PHOSPHOROUS 2.3 mg/dL (2.5-4.9); POTASSIUM - SERUM 3.4 mmol/L (3.5-5.1); PRO BNP 548 pg/mL (0-125); SODIUM 135 mmol/L (136-145); UREA NITROGEN 15 mg/dL (7-18)
[2020-03-18 05:36] LABS: CREATININE - SERUM 0.4 mg/dL (0.6-1.3); eGFR NON AFRICAN AMERICAN > 90 mL/min (90-120)
--- NOTE | 2020-03-18 09:23 | NUR ---
DECREASED O2 40%
--- NOTE | 2020-03-18 12:34 | NUR ---
Nutrition follow-up: Pulmocare TF off at this time 2/2 vomiting - second time. ProcalAmine PPN @ 75 ml/hr Labs reviewed Wt: 233# Per Dr. Kumar, pt may need PEJ due to continued N/V with PEG. RDN following.
--- NOTE | 2020-03-18 16:51 | MORECARE ---
CASE MANAGEMENT DISCHARGE SUMMARY PATIENT: DENNIS KHAN UNIT: [id number] ADM DATE: 02/09/20 AGE: 59 : 56 SEX: F ROOM/BED: D.2314 AUTHOR: RICKY,DOC PHYSICIAN: REFERRING PHYSICIAN: URBANO EDDY DO DATE OF SERVICE: 03/18/20 Discharge Plan Patient Name: DENNIS KHAN Facility: [facility]:[place] : 1960 Planned Disposition: Anticipated Discharge Date: Discharge Date: Expected LOS: Initial Reviewer: [email or web address] Initial Review Date: 02/09/2020 Generated: 03/18/20 5:50 pm Comments DCP- Discharge Planning Updated by [id number]: Nancy Chaparro on 03/18/20 3:[address] CM called and left message for Lorin with [facility] requesting update on status of referral. DCP- Discharge Planning Updated by [id number]: Elvin Medina on 03/17/20 3:[address] CM attempted to call spouse of patient (Tyrell) at [phone] to discuss LTAC options. CM attempted to call son, Elana at [phone], Elana's spouse answered and gave alternate number for Elana (number undisclosed) and an alternate number for Tyrell ([phone]). Spoke with Elana. Elana stated that TI Henriquez is handling placement and has been working on attempts for [facility] vs [facility]. For continuity, this CM will notify active CM of correspondence and take no further action. CM will continue to follow and will assist as needed with dc plans/needs. DCP- Discharge Planning Updated by [email or web address]: Samantha Navarrete on 03/14/20 5:[address] CM received a message back from Elana her son to send referral packet to [facility]. SHAYNA completed. CM faxed packet to Lorin. CM will continue to follow and assist as needed with discharge planning / needs. DCP- Discharge Planning Updated by [id number]: Samantha Navarrete on 03/13/20 2:[address] CM has attempted to call and text patients son Elana [phone]. to give him the information on LTACH so that he can decide which facility he would like CM to send referral. CM left the information with nursing staff also incase he calls to check in on his mother. CM will continue to follow and assist as needed with discharge planning/ needs. DCP- Discharge Planning Updated by [id number]: Samantha Navarrete on 03/12/20 7:[address] LATE ENTRY 03/11/20 CM spoke with patient's son Elana [phone]. He requested for CM to find out if insurance will cover LTACH and what facilities are covered. CM spoke with rep at [facility] regarding coverage and according to the rep it should be a level 2 benefit and will be a 500.00 co pay and then 80% if family deductible has been met then will pay at 100%. As far as which facility as long as the facility takes [facility] [place] then it will be covered per CM understanding. PA will be required prior to admit. Call ref # [id number]. CM will speak with Elana and convey the information for him to choose an LTACH. DCP- Discharge Planning Updated by [id number]: Samantha Navarrete on 03/08/20 8:[address] CM will contact family regarding LTACH placement on Wednesday. CM will need to check to see which facilities are taking COVID patients. CM will continue to follow and assist as needed with d/c planning DCP- Discharge Planning Updated by [id number]: Tamela Smith on 02/16/20 3:[address] CM contacted spouse, Tyrell Yoon @[phone], to discuss initial DC planning. Spouse is in agreement to proceed with the assessment. Patient is currently sedated and intubated on a mechanical vent. Per patient's spouse, patient lives independently in her home, with him. 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 [facility] HHS: No. DME: None. Emergency contact: Tyrell Yoon and (son) Elana Yoon #[phone]. Patient is Independent with all ADL's, medication management AUTOMATIC LINE SET UP MECHANIC. CM discussed the availability of HH, Rehab, SNF, OP Therapy, DME services. Patient would benefit from Rehab or HHS upon DC. Spouse agrees to Rehab prior to returning home, if needed. Spouse denies hospitalization within the past 30 days. Spouse denies the use of community resources AUTOMATIC LINE SET UP MECHANIC. Transportation at time of discharge: Spouse or son. CM will follow and assist PRN with DC needs/plans. DCPIA - Discharge Planning Initial Assessment Updated by [id number]: Tamela Smith on 02/16/20 4:05 pm * Is the patient Alert and Oriented? No * How many steps to enter\exit or inside your home? * PCP Unknown at present * Pharmacy [facility], [place] * Preadmission Environment Home with Family * ADLs Independent * Equipment None * Other Equipment NA * List name and contact numbers for known caregivers / representatives who currently or will assist patient after discharge: Tyrell Karrie (spouse) [phone] Elana Khan (son) [phone] * Verbal permission to speak to the caregivers and representatives has been obtained from the patient. N/A * Community resources currently utilized None * Please name any agencies selected above. NA * Additional services required to return to the preadmission environment? Yes * Can the patient safely return to the preadmission environment? Yes * Has this patient been hospitalized within the prior 30 days at any hospital? No Coverage Notice Reviewer: [id number] Mykel Navarrete Notice Issued Date-Time: 03/14/2020 12:55 Notice Type: Patient Choice Letter Notice Delivered To: Family Member Relationship to Patient: Son Data Management Specialist Name: ELANA KHAN Delivery Method: HAND - Hand Delivered Carrie Days: Prior Verbal Notification: Yes Recipient Understood Notice: Yes Recipient Signature: Med Rec Note Co-signed by Attending: Coverage Notice Comment: Last DP export: 03/17/20 3:35 p Patient Name: DENNIS KHAN Page 26567 at 1651 All edits/amendments must be made on the electronic document DICTATION DATE: 03/18/201649 HOOP FLARING MACHINE OPERATOR: SHELBY 03/18/201649 RPT#: [id number] DC DATE: STATUS: ADM IN [facility] [address] [place] [address] END OF REPORT
--- NOTE | 2020-03-18 17:12 | NUR ---
PER DR CHAN, ROSA M HEPARIN.
[2020-03-19] VITALS (24 sets, daily range): BP systolic 120–189; BP diastolic 74–99
--- NOTE | 2020-03-19 14:37 | MORECARE ---
CASE MANAGEMENT DISCHARGE SUMMARY PATIENT: DENNIS KHAN UNIT: [id number] ADM DATE: 02/09/20 AGE: 59 : 56 SEX: F ROOM/BED: D.2314 AUTHOR: RICKY,DOC PHYSICIAN: REFERRING PHYSICIAN: URBANO EDDY DO DATE OF SERVICE: 03/19/20 Discharge Plan Patient Name: DENNIS KHAN Facility: [facility]:[place] : 1960 Planned Disposition: Anticipated Discharge Date: Discharge Date: Expected LOS: Initial Reviewer: [id number] Initial Review Date: 02/09/2020 Generated: 03/19/20 3:36 pm Comments DCP- Discharge Planning Updated by [email or web address]: Evy Jason on 03/19/20 1:[address] CM SPOKE WITH LORIN AT [facility]. THEY ARE NOT ACCEPTING COVID PATIENTS AT THIS TIME. CM SPOKE W/ [facility]. NO BEDS AVAILABLE. LONG WAITING LIST. TELEPHONED IVORY AT [facility]. LEFT VM AT [phone]. IF FAMILY AGREES TO WIDEN THE SEARCH, WILL FAX REFERRAL TO [phone]. SPOKE W/ DR THORNTON TO OBTAIN 20 DAY CERTIFICATION. SIGNATURE OBTAINED. FORM PLACED IN THE HARD COVER CHART. DCP- Discharge Planning Updated by [id number]: Nancy Chaparro on 03/18/20 3:[address] CM called and left message for Lorin with [facility] requesting update on status of referral. DCP- Discharge Planning Updated by [id number]: Elvin Medina on 03/17/20 3:[address] CM attempted to call spouse of patient (Tyrell) at [phone] to discuss LTAC options. CM attempted to call son, Elana at [phone], Elana's spouse answered and gave alternate number for Elana (number undisclosed) and an alternate number for Tyrell ([phone]). Spoke with Elana. Elana stated that TI Henriquez is handling placement and has been working on attempts for [facility] vs [facility]. For continuity, this CM will notify active CM of correspondence and take no further action. CM will continue to follow and will assist as needed with dc plans/needs. DCP- Discharge Planning Updated by [email or web address]: Samantha Navarrete on 03/14/20 5:[address] CM received a message back from Elana her son to send referral packet to [facility]. SHAYNA completed. CM faxed packet to Lorin. CM will continue to follow and assist as needed with discharge planning / needs. DCP- Discharge Planning Updated by [id number]: Samantha Navarrete on 03/13/20 2:[address] CM has attempted to call and text patients son Elana [phone]. to give him the information on LTACH so that he can decide which facility he would like CM to send referral. CM left the information with nursing staff also incase he calls to check in on his mother. CM will continue to follow and assist as needed with discharge planning/ needs. DCP- Discharge Planning Updated by [email or web address]: Samantha Navarrete on 03/12/20 7:[address] LATE ENTRY 03/11/20 CM spoke with patient's son Elana [phone]. He requested for CM to find out if insurance will cover LTACH and what facilities are covered. CM spoke with rep at [facility] regarding coverage and according to the rep it should be a level 2 benefit and will be a 500.00 co pay and then 80% if family deductible has been met then will pay at 100%. As far as which facility as long as the facility takes BS of [place] then it will be covered per CM understanding. PA will be required prior to admit. Call ref # [id number]. CM will speak with Elana and convey the information for him to choose an LTACH. DCP- Discharge Planning Updated by [email or web address]: Samantha Navarrete on 03/08/20 8:[address] CM will contact family regarding LTACH placement on Wednesday. CM will need to check to see which facilities are taking COVID patients. CM will continue to follow and assist as needed with d/c planning DCP- Discharge Planning Updated by [id number]: Tamela Smith on 02/16/20 3:[address] CM contacted spouse, Tyrell Yoon @[phone], to discuss initial DC planning. Spouse is in agreement to proceed with the assessment. Patient is currently sedated and intubated on a mechanical vent. Per patient's spouse, patient lives independently in her home, with him. 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 Pharmacy: [facility] [place]. HHS: No. DME: None. Emergency contact: Tyrell Yoon and (son) Elana Yoon #[phone]. Patient is Independent with all ADL's, medication management SECOND FLOOR OPERATOR. CM discussed the availability of HH, Rehab, SNF, OP Therapy, DME services. Patient would benefit from Rehab or HHS upon DC. Spouse agrees to Rehab prior to returning home, if needed. Spouse denies hospitalization within the past 30 days. Spouse denies the use of community resources SECOND FLOOR OPERATOR. Transportation at time of discharge: Spouse or son. CM will follow and assist PRN with DC needs/plans. DCPIA - Discharge Planning Initial Assessment Updated by [email or web address]: Tamela Smith on 02/16/20 4:05 pm * Is the patient Alert and Oriented? No * How many steps to enter\exit or inside your home? * PCP Unknown at present * Pharmacy [facility] [place] * Preadmission Environment Home with Family * ADLs Independent * Equipment None * Other Equipment NA * List name and contact numbers for known caregivers / representatives who currently or will assist patient after discharge: Tyrell Yoon (spouse) [phone] Elana Khan (son) [phone] * Verbal permission to speak to the caregivers and representatives has been obtained from the patient. N/A * Community resources currently utilized None * Please name any agencies selected above. NA * Additional services required to return to the preadmission environment? Yes * Can the patient safely return to the preadmission environment? Yes * Has this patient been hospitalized within the prior 30 days at any hospital? No Coverage Notice Reviewer: [id number] Mykel Navarrete Notice Issued Date-Time: 03/14/2020 12:55 Notice Type: Patient Choice Letter Notice Delivered To: Family Member Relationship to Patient: Son Hand Candy Cutter Name: ELANA KHAN Delivery Method: HAND - Hand Delivered Carrie Days: Prior Verbal Notification: Yes Recipient Understood Notice: Yes Recipient Signature: Med Rec Note Co-signed by Attending: Coverage Notice Comment: Last DP export: 03/18/20 3:51 p Patient Name: DENNIS KHAN Page [id number] at 1437 All edits/amendments must be made on the electronic document DICTATION DATE: 03/19/201435 MIDDLEWARE ENGINEER: SHELBY 03/19/201435 RPT#: [id number] DC DATE: STATUS: ADM IN [facility] [address] [place] [address] END OF REPORT
[2020-03-19 18:08] LABS: ACID FAST SMEAR Negative (()); AFB SPECIMEN PROCESSING Concentration (())
[2020-03-20] VITALS (22 sets, daily range): BP systolic 103–185; BP diastolic 70–104
[2020-03-20 04:52] LABS: CALC OSMOLALITY 267 mosm/kg (275-300); CHLORIDE - SERUM 95 mmol/L (98-107); CREATININE - SERUM 0.4 mg/dL (0.6-1.3); GLUCOSE 105 mg/dL (74-106); SODIUM 133 mmol/L (136-145); UREA NITROGEN 17 mg/dL (7-18); eGFR NON AFRICAN AMERICAN > 90 mL/min (90-120)
[2020-03-20 05:10] LABS: POTASSIUM - SERUM 3.3 mmol/L (3.5-5.1)
[2020-03-20 09:35] LABS: ALBUMIN 2.7 g/dL (3.4-5.0); ALKALINE PHOSPHATASE 98 U/L (30-120); ALT (SGPT) 57 U/L (10-68); BILIRUBIN - TOTAL 1.07 mg/dL (0.2-1.3)
[2020-03-20 09:52] LABS: BASOPHILS 0.1 % (0-2); EOSINOPHILS 0 % (0-7); HEMATOCRIT 36.3 % (36.0-48.0); HEMOGLOBIN 11.6 g/dL (12-16); IMMATURE GRANULOCYTES 4.1 % (0-5); LYMPHOCYTES 14.6 % (15-50); MCH 29.2 pg (26.0-34.0); MCV 91.4 fL (80.0-100.0); MEAN PLATELET VOLUME 8.8 fL (7.4-10.4); MONOCYTES 7.1 % (2-11); NEUTROPHILS 74.1 % (40-80); PLATELET COUNT 270 10x3/uL (130-400); RBC 3.97 10x6/uL (4.00-5.40); RDW 14.6 % (11.5-14.5); WBC 9.1 10x3/uL (4.8-10.8)
--- NOTE | 2020-03-20 09:58 | MORECARE ---
CASE MANAGEMENT DISCHARGE SUMMARY PATIENT: DENNIS KHAN UNIT: [id number] ADM DATE: 02/09/20 AGE: 59 : 56 SEX: F ROOM/BED: D.2314 AUTHOR: RICKY,DOC PHYSICIAN: REFERRING PHYSICIAN: URBANO EDDY DO DATE OF SERVICE: 03/20/20 Discharge Plan Patient Name: DENNIS KHAN Facility: [facility]:[place] : 1960 Planned Disposition: Anticipated Discharge Date: Discharge Date: Expected LOS: Initial Reviewer: [email or web address] Initial Review Date: 02/09/2020 Generated: 03/20/20 10:58 am Comments DCP- Discharge Planning Updated by [id number]: Evy Jason on 03/19/20 1:[address] CM SPOKE WITH LORIN AT [facility]. THEY ARE NOT ACCEPTING COVID PATIENTS AT THIS TIME. CM SPOKE W/ [facility]. NO BEDS AVAILABLE. LONG WAITING LIST. TELEPHONED IVORY AT [facility]. LEFT VM AT [phone]. IF FAMILY AGREES TO WIDEN THE SEARCH, WILL FAX REFERRAL TO [phone]. SPOKE W/ DR THORNTON TO OBTAIN 20 DAY CERTIFICATION. SIGNATURE OBTAINED. FORM PLACED IN THE HARD COVER CHART. DCP- Discharge Planning Updated by [id number]: Nancy Chaparro on 03/18/20 3:[address] CM called and left message for Lorin with [facility] requesting update on status of referral. DCP- Discharge Planning Updated by [id number]: Elvin Medina on 03/17/20 3:[address] CM attempted to call spouse of patient (Tyrell) at [phone] to discuss LTAC options. CM attempted to call son, Elana at [phone], Elana's spouse answered and gave alternate number for Elana (number undisclosed) and an alternate number for Tyrell ([phone]). Spoke with Elana. Elana stated that TI Henriquez is handling placement and has been working on attempts for [place] [facility] vs [facility]. For continuity, this CM will notify active CM of correspondence and take no further action. CM will continue to follow and will assist as needed with dc plans/needs. DCP- Discharge Planning Updated by [email or web address]: Samantha Navarrete on 03/14/20 5:[address] CM received a message back from Elana her son to send referral packet to [facility]. SHAYNA completed. CM faxed packet to Lorin. CM will continue to follow and assist as needed with discharge planning / needs. DCP- Discharge Planning Updated by [email or web address]: Samantha Navarrete on 03/13/20 2:[address] CM has attempted to call and text patients son Elana [phone]. to give him the information on LTACH so that he can decide which facility he would like CM to send referral. CM left the information with nursing staff also incase he calls to check in on his mother. CM will continue to follow and assist as needed with discharge planning/ needs. DCP- Discharge Planning Updated by [email or web address]: Samantha Navarrete on 03/12/20 7:[address] LATE ENTRY 03/11/20 CM spoke with patient's son Elana [phone]. He requested for CM to find out if insurance will cover LTACH and what facilities are covered. CM spoke with rep at [facility] regarding coverage and according to the rep it should be a level 2 benefit and will be a 500.00 co pay and then 80% if family deductible has been met then will pay at 100%. As far as which facility as long as the facility takes BS of [place] then it will be covered per CM understanding. PA will be required prior to admit. Call ref # [id number]. CM will speak with Elana and convey the information for him to choose an LTACH. DCP- Discharge Planning Updated by [id number]: Samantha Navarrete on 03/08/20 8:[address] CM will contact family regarding LTACH placement on Wednesday. CM will need to check to see which facilities are taking COVID patients. CM will continue to follow and assist as needed with d/c planning DCP- Discharge Planning Updated by [id number]: Tamela Smith on 02/16/20 3:[address] CM contacted spouse, Tyrell Yoon @[phone], to discuss initial DC planning. Spouse is in agreement to proceed with the assessment. Patient is currently sedated and intubated on a mechanical vent. Per patient's spouse, patient lives independently in her home, with him. 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 Pharmacy: [facility] [place]. HHS: No. DME: None. Emergency contact: Tyrell Yoon and (son) Elana Yoon #[phone]. Patient is Independent with all ADL's, medication management MEDICAL AFFAIRS LEADER. CM discussed the availability of HH, Rehab, SNF, OP Therapy, DME services. Patient would benefit from Rehab or HHS upon DC. Spouse agrees to Rehab prior to returning home, if needed. Spouse denies hospitalization within the past 30 days. Spouse denies the use of community resources MEDICAL AFFAIRS LEADER. Transportation at time of discharge: Spouse or son. CM will follow and assist PRN with DC needs/plans. DCPIA - Discharge Planning Initial Assessment Updated by [id number]: Tamela Smith on 02/16/20 4:05 pm * Is the patient Alert and Oriented? No * How many steps to enter\exit or inside your home? * PCP Unknown at present * Pharmacy [facility] [place] * Preadmission Environment Home with Family * ADLs Independent * Equipment None * Other Equipment NA * List name and contact numbers for known caregivers / representatives who currently or will assist patient after discharge: Tyrell Yoon (spouse) [phone] Elana Khan (son) [phone] * Verbal permission to speak to the caregivers and representatives has been obtained from the patient. N/A * Community resources currently utilized None * Please name any agencies selected above. NA * Additional services required to return to the preadmission environment? Yes * Can the patient safely return to the preadmission environment? Yes * Has this patient been hospitalized within the prior 30 days at any hospital? No Coverage Notice Reviewer: [id number] Mykel Navarrete Notice Issued Date-Time: 03/14/2020 12:55 Notice Type: Patient Choice Letter Notice Delivered To: Family Member Relationship to Patient: Son Assembly Detailer Name: ELANA KHAN Delivery Method: HAND - Hand Delivered Carrie Days: Prior Verbal Notification: Yes Recipient Understood Notice: Yes Recipient Signature: Med Rec Note Co-signed by Attending: Coverage Notice Comment: Last DP export: 03/19/20 1:37 p Patient Name: DENNIS KHAN Page 48561 at 0958 All edits/amendments must be made on the electronic document DICTATION DATE: 03/20/20957 ACCOUNTANT PROPERTY: SHELBY 03/20/20957 RPT#: [id number] DC DATE: STATUS: ADM IN [facility] [address] [place] [address] END OF REPORT
[2020-03-20 11:11] LABS: FUNGUS STAIN Final report (())
--- NOTE | 2020-03-20 13:33 | NUR ---
Nutrition Follow-up: Pt in droplet isolation; covid-19+. Trach->vent. TF not running this AM. Noted possible PEG to JPEG per Dr. Kumar. Receiving Procal @ 75 mL/hr. WT: 218.8# (03/20) Last BM: 03/17 per chart Labs noted: Na 133, K+ 3.3 Meds noted: Zofran, Lasix, Florajen, Protonix, Reglan, electrolyte protocol -RD following.
--- NOTE | 2020-03-20 14:35 | MORECARE ---
CASE MANAGEMENT DISCHARGE SUMMARY PATIENT: DENNIS KHAN UNIT: [id number] ADM DATE: 02/09/20 AGE: 59 : 56 SEX: F ROOM/BED: D.2314 AUTHOR: RICKY,DOC PHYSICIAN: REFERRING PHYSICIAN: URBANO EDDY DO DATE OF SERVICE: 03/20/20 Discharge Plan Patient Name: DENNIS KHAN Facility: [facility]:[place] : 1960 Planned Disposition: Anticipated Discharge Date: Discharge Date: Expected LOS: Initial Reviewer: [id number] Initial Review Date: 02/09/2020 Generated: 03/20/20 3:34 pm Comments DCP- Discharge Planning Updated by [email or web address]: Evy Jason on 03/20/20 1:[address] TELEPHONED AND SPOKE WITH PATIENT'S . GAVE UPDATE REGARDING REFERRALS TO LTAC. HER TYRELL DOES NOT WISH TO WIDEN SEARCH OUTSIDE OF THE IMMEDIARE AREA. HE WILL DISCUSS WITH ELANA (SON). DCP- Discharge Planning Updated by [id number]: Evy Jason on 03/19/20 1:[address] CM SPOKE WITH LORIN AT [facility]. THEY ARE NOT ACCEPTING COVID PATIENTS AT THIS TIME. CM SPOKE W/ [facility]. NO BEDS AVAILABLE. LONG WAITING LIST. TELEPHONED IVORY AT [facility]. LEFT VM AT [phone]. IF FAMILY AGREES TO WIDEN THE SEARCH, WILL FAX REFERRAL TO [phone]. SPOKE W/ DR THORNTON TO OBTAIN 20 DAY CERTIFICATION. SIGNATURE OBTAINED. FORM PLACED IN THE HARD COVER CHART. DCP- Discharge Planning Updated by [id number]: Nancy Chaparro on 03/18/20 3:[address] CM called and left message for Lorin with [facility] requesting update on status of referral. DCP- Discharge Planning Updated by [email or web address]: Elvin Medina on 03/17/20 3:[address] CM attempted to call spouse of patient (Tyrell) at [phone] to discuss LTAC options. CM attempted to call son, Elana at [phone], Elana's spouse answered and gave alternate number for Elana (number undisclosed) and an alternate number for Tyrell ([phone]). Spoke with Elana. Elana stated that CM [place] is handling placement and has been working on attempts for [place] [facility]. For continuity, this CM will notify active CM of correspondence and take no further action. CM will continue to follow and will assist as needed with dc plans/needs. DCP- Discharge Planning Updated by [email or web address]: Samantha Navarrete on 03/14/20 5:[address] CM received a message back from Elana her son to send [facility] packet [facility]. SHAYNA completed. CM faxed packet to Lorin. CM will continue to follow and assist as needed with discharge planning / needs. DCP- Discharge Planning Updated by [email or web address]: Samantha Navarrete on 03/13/20 2:[address] CM has attempted to call and text patients son Elana [phone]. to give him the information on LTACH so that he can decide which facility he would like CM to send referral. CM left the information with nursing staff also incase he calls to check in on his mother. CM will continue to follow and assist as needed with discharge planning/ needs. DCP- Discharge Planning Updated by [id number]: Samantha Navarrete on 03/12/20 7:[address] LATE ENTRY 03/11/20 TI spoke with patient's son Elana [phone]. He requested for CM to find out if insurance will cover LTACH and what facilities are covered. CM spoke with rep at [facility] regarding coverage and according to the rep it should be a level 2 benefit and will be a 500.00 co pay and then 80% if family deductible has been met then will pay at 100%. As far as which facility as long as the facility takes [facility] of [place] then it will be covered per CM understanding. PA will be required prior to admit. Call ref # [id number]. CM will speak with Elana and convey the information for him to choose an LTACH. DCP- Discharge Planning Updated by [id number]: Samantha Navarrete on 03/08/20 8:[address] CM will contact family regarding LTACH placement on Wednesday. CM will need to check to see which facilities are taking COVID patients. CM will continue to follow and assist as needed with d/c planning DCP- Discharge Planning Updated by [email or web address]: Tamela Smith on 02/16/20 3:[address] CM contacted spouse, Tyrell Yoon @[phone], to discuss initial DC planning. Spouse is in agreement to proceed with the assessment. Patient is currently sedated and intubated on a mechanical vent. Per patient's spouse, patient lives independently in her home, with him. 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 Pharmacy: [facility]. HHS: No. DME: None. Emergency contact: Tyrell Yoon and (son) Elana Yoon #[phone]. Patient is Independent with all ADL's, medication management MILK DRIER. CM discussed the availability of HH, Rehab, SNF, OP Therapy, DME services. Patient would benefit from Rehab or HHS upon DC. Spouse agrees to Rehab prior to returning home, if needed. Spouse denies hospitalization within the past 30 days. Spouse denies the use of community resources MILK DRIER. Transportation at time of discharge: Spouse or son. CM will follow and assist PRN with DC needs/plans. DCPIA - Discharge Planning Initial Assessment Updated by [id number]: Tamela Smith on 02/16/20 4:05 pm * Is the patient Alert and Oriented? No * How many steps to enter\exit or inside your home? * PCP Unknown at present * Pharmacy [facility] [place] * Preadmission Environment Home with Family * ADLs Independent * Equipment None * Other Equipment NA * List name and contact numbers for known caregivers / representatives who currently or will assist patient after discharge: Tyrell Yoon (spouse) [phone] Elana Khan (son) [phone] * Verbal permission to speak to the caregivers and representatives has been obtained from the patient. N/A * Community resources currently utilized None * Please name any agencies selected above. NA * Additional services required to return to the preadmission environment? Yes * Can the patient safely return to the preadmission environment? Yes * Has this patient been hospitalized within the prior 30 days at any hospital? No Coverage Notice Reviewer: [id number] Mykel Navarrete Notice Issued Date-Time: 03/14/2020 12:55 Notice Type: Patient Choice Letter Notice Delivered To: Family Member Relationship to Patient: Son Bleach Liquor Maker Name: ELANA KHAN Delivery Method: HAND - Hand Delivered Carrie Days: Prior Verbal Notification: Yes Recipient Understood Notice: Yes Recipient Signature: Med Rec Note Co-signed by Attending: Coverage Notice Comment: Last DP export: 03/20/20 8:58 a Patient Name: DENNIS KHAN Page [id number] at 1435 All edits/amendments must be made on the electronic document DICTATION DATE: 03/20/20 143 REINFORCING STEEL WORKER WIRE MESH: SHELBY 03/20/20 1434 RPT#: [id number] DC DATE: STATUS: ADM [facility] [address] [place] [address] END OF REPORT
--- NOTE | 2020-03-20 16:34 | MORECARE ---
CASE MANAGEMENT DISCHARGE SUMMARY PATIENT: DENNIS KHAN UNIT: [id number] ADM DATE: 02/09/20 AGE: 59 : 56 SEX: F ROOM/BED: D.2314 AUTHOR: RICKY,DOC PHYSICIAN: REFERRING PHYSICIAN: URBANO EDDY DO DATE OF SERVICE: 03/20/20 Discharge Plan Patient Name: DENNIS KHAN Facility: [facility]:[place] : 1960 Planned Disposition: Anticipated Discharge Date: Discharge Date: Expected LOS: Initial Reviewer: [email or web address] Initial Review Date: 02/09/2020 Generated: 03/20/20 5:33 pm Comments DCP- Discharge Planning Updated by [id number]: Evy Jason on 03/20/20 3:[address] CM CALLED TO VERIFY AREA OF SEARCH ? IF HE SAID [place]. HE WILL STILL DISCUSS WITH HIS SON. HE STATES THEY [place]IVE [place] [address] [place] AND [place] BUT ALL OF HIS DOCTORS IE. HIS CANCER DOCTOR IS IN [place]. HE PLANS TO DISCUSS WITH HIS SON AND ADVISE CM OF DECISION. LTAC IN [place] PER [facility] [facility] [phone] [facility] [phone] [facility] [phone]. CM AWAIT DECISION. DCP- Discharge Planning Updated by [id number]: Evy Jason on 03/20/20 1:[address] TELEPHONED AND SPOKE WITH PATIENT'S . GAVE UPDATE REGARDING REFERRALS TO LTAC. HER TYRELL DOES NOT WISH TO WIDEN SEARCH OUTSIDE OF THE IMMEDIARE AREA. HE WILL DISCUSS WITH ELANA (SON). DCP- Discharge Planning Updated by [email or web address]: Evy Jason on 03/19/20 1:[address] CM SPOKE WITH LORIN AT [facility]. THEY ARE NOT ACCEPTING COVID PATIENTS AT THIS TIME. CM SPOKE W/ [facility]. NO BEDS AVAILABLE. LONG WAITING LIST. TELEPHONED IVORY AT [facility]. LEFT VM AT [phone]. IF FAMILY AGREES TO WIDEN THE SEARCH, WILL FAX REFERRAL TO [phone]. SPOKE W/ DR THORNTON TO OBTAIN 20 DAY CERTIFICATION. SIGNATURE OBTAINED. FORM PLACED IN THE HARD COVER CHART. DCP- Discharge Planning Updated by [id number]: Nancy Shankar on 03/18/20 3:[address] CM called and left message for Lorin with [facility] requesting update on status of referral. DCP- Discharge Planning Updated by [email or web address]: Elvin Medina on 03/17/20 3:[address] CM attempted to call spouse of patient (Tyrell) at [phone] to discuss LTAC options. CM attempted to call son, Elana at [phone], Elana's spouse answered and gave alternate number for Elana (number undisclosed) and an alternate number for Tyrell ([phone]). Spoke with Elana. Elana stated that TI Henriquez is handling placement and has been working on attempts for [facility]. For continuity, this CM will notify active CM of correspondence and take no further action. CM will continue to follow and will assist as needed with dc plans/needs. DCP- Discharge Planning Updated by [email or web address]: Samantha Navarrete on 03/14/20 5:[address] CM received a message back from Elana her son to send referral packet to [facility]. SHAYNA completed. CM faxed packet to Lorin. CM will continue to follow and assist as needed with discharge planning / needs. DCP- Discharge Planning Updated by [id number]: Samantha Navarrete on 03/13/20 2:[address] CM has attempted to call and text patients son Elana [phone]. to give him the information on LTACH so that he can decide which facility he would like CM to send referral. CM left the information with nursing staff also incase he calls to check in on his mother. CM will continue to follow and assist as needed with discharge planning/ needs. DCP- Discharge Planning Updated by [email or web address]: Samantha Navarrete on 03/12/20 7:[address] LATE ENTRY 03/11/20 TI spoke with patient's son Elana [phone]. He requested for CM to find out if insurance will cover LTACH and what facilities are covered. TI spoke with rep at [facility] regarding coverage and according to the rep it should be a level 2 benefit and will be a 500.00 co pay and then 80% if family deductible has been met then will pay at 100%. As far as which facility as long as the facility takes BCBS of [place] then it will be covered per CM understanding. PA will be required prior to admit. Call ref # [id number]. CM will speak with Elana and convey the information for him to choose an LTACH. DCP- Discharge Planning Updated by [email or web address]: Samantha Navarrete on 03/08/20 8:[address] CM will contact family regarding LTACH placement on Wednesday. CM will need to check to see which facilities are taking COVID patients. CM will continue to follow and assist as needed with d/c planning DCP- Discharge Planning Updated by [id number]: Tamela Smith on 02/16/20 3:[address] CM contacted spouse, Tyrell Yoon @[phone], to discuss initial DC planning. Spouse is in agreement to proceed with the assessment. Patient is currently sedated and intubated on a mechanical vent. Per patient's spouse, patient lives independently in her home, with him. 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 Pharmacy: [facility], [place]. HHS: No. DME: None. Emergency contact: Tyrell Yoon and (son) Elana Yoon #[phone]. Patient is Independent with all ADL's, medication management BOOT MAKER. CM discussed the availability of HH, Rehab, SNF, OP Therapy, DME services. Patient would benefit from Rehab or HHS upon DC. Spouse agrees to Rehab prior to returning home, if needed. Spouse denies hospitalization within the past 30 days. Spouse denies the use of community resources BOOT MAKER. Transportation at time of discharge: Spouse or son. CM will follow and assist PRN with DC needs/plans. DCPIA - Discharge Planning Initial Assessment Updated by [id number]: Tamela Smith on 02/16/20 4:05 pm * Is the patient Alert and Oriented? No * How many steps to enter\exit or inside your home? * PCP Unknown at present * Pharmacy [facility], [place] * Preadmission Environment Home with Family * ADLs Independent * Equipment None * Other Equipment NA * List name and contact numbers for known caregivers / representatives who currently or will assist patient after discharge: Tyrell Yoon (spouse) [phone] Elana Khan (son) [phone] * Verbal permission to speak to the caregivers and representatives has been obtained from the patient. N/A * Community resources currently utilized None * Please name any agencies selected above. NA * Additional services required to return to the preadmission environment? Yes * Can the patient safely return to the preadmission environment? Yes * Has this patient been hospitalized within the prior 30 days at any hospital? No Coverage Notice Reviewer: [id number] - Samantha Navarrete Notice Issued Date-Time: 03/14/2020 12:55 Notice Type: Patient Choice Letter Notice Delivered To: Family Member Relationship to Patient: Son Stave Bolt Equalizer Name: ELANA KHAN Delivery Method: HAND - Hand Delivered Carrie Days: Prior Verbal Notification: Yes Recipient Understood Notice: Yes Recipient Signature: Med Rec Note Co-signed by Attending: Coverage Notice Comment: Last DP export: 03/20/20 1:35 p Patient Name: DENNIS KHAN Page [id number] at 1634 All edits/amendments must be made on the electronic document DICTATION DATE: 03/20/20 163 [employer] SUPERVISOR: SHELBY 03/20/201632 RPT#: [id number] DC DATE: STATUS: ADM IN [facility] [address] [place] [address] END OF REPORT
[2020-03-21] VITALS (23 sets, daily range): BP systolic 106–159; BP diastolic 61–91
[2020-03-21 04:33] LABS: BASOPHILS 0.1 % (0-2); EOSINOPHILS 0 % (0-7); HEMATOCRIT 38.2 % (36.0-48.0); HEMOGLOBIN 12.1 g/dL (12-16); IMMATURE GRANULOCYTES 3.2 % (0-5); LYMPHOCYTES 13.1 % (15-50); MCH 28.9 pg (26.0-34.0); MCHC 31.7 g/dL (31.0-37.0); MCV 91.2 fL (80.0-100.0); MEAN PLATELET VOLUME 9.6 fL (7.4-10.4); NEUTROPHILS 76.6 % (40-80); RBC 4.19 10x6/uL (4.00-5.40); RDW 14.9 % (11.5-14.5)
[2020-03-21 04:47] LABS: ALBUMIN 2.7 g/dL (3.4-5.0); ALKALINE PHOSPHATASE 102 U/L (30-120); ALT (SGPT) 52 U/L (10-68); BILIRUBIN - TOTAL 1.26 mg/dL (0.2-1.3); CALC OSMOLALITY 276 mosm/kg (275-300); CALCIUM 9.8 mg/dL (8.5-10.1); CARBON DIOXIDE 27.7 mmol/L (21.0-32.0); CHLORIDE - SERUM 102 mmol/L (98-107); CREATININE - SERUM 0.3 mg/dL (0.6-1.3); GLUCOSE 125 mg/dL (74-106); MAGNESIUM - SERUM 2.4 mg/dL (1.8-2.4); PHOSPHOROUS 1.8 mg/dL (2.5-4.9); PLATELET COUNT 169 10x3/uL (130-400); POTASSIUM - SERUM 4.5 mmol/L (3.5-5.1); PROTEIN - SERUM 6.7 g/dL (6.4-8.2); SODIUM 137 mmol/L (136-145); UREA NITROGEN 17 mg/dL (7-18); eGFR NON AFRICAN AMERICAN > 90 mL/min (90-120)
[2020-03-22] VITALS (24 sets, daily range): BP systolic 114–161; BP diastolic 64–96
[2020-03-22 07:30] LABS: ALBUMIN 2.5 g/dL (3.4-5.0); ALKALINE PHOSPHATASE 87 U/L (30-120); ALT (SGPT) 42 U/L (10-68); BILIRUBIN - TOTAL 0.84 mg/dL (0.2-1.3); CALC OSMOLALITY 281 mosm/kg (275-300); CALCIUM 9.8 mg/dL (8.5-10.1); CHLORIDE - SERUM 104 mmol/L (98-107); CREATININE - SERUM 0.3 mg/dL (0.6-1.3); GLUCOSE 110 mg/dL (74-106); PROTEIN - SERUM 6.5 g/dL (6.4-8.2); SODIUM 139 mmol/L (136-145); UREA NITROGEN 21 mg/dL (7-18); eGFR NON AFRICAN AMERICAN > 90 mL/min (90-120)
[2020-03-22 07:31] LABS: POTASSIUM - SERUM 3.5 mmol/L (3.5-5.1)
--- NOTE | 2020-03-22 08:42 | NUR ---
PS TRIAL 26/01
--- NOTE | 2020-03-22 13:11 | NUR ---
Nutrition Follow-up: Pt in droplet isolation; covid-19+. Noted PSV trial today. Receiving Procal @ 75. Not receiving TF. Discussed with nursing. Per pulm, consider PEG to JPEG 2/2 N/V. Wt: 210.2# (03/22) Labs noted: Glu 110, Alb 2.5 Meds noted: Zofran, Lasix, Florajen, Protonix, Reglan, electrolyte -Procal is not adequate to meet pt needs. Will need to resume TF (JPEG?) or PO intake if trials successful and able to advance diet. -RD following.
[2020-03-23] VITALS (25 sets, daily range): BP systolic 99–181; BP diastolic 59–106
--- NOTE | 2020-03-23 04:51 | NUR ---
PT SISTER CALLED, PASSWORD PROVIDED, UPDATE GIVEN.
[2020-03-23 06:29] LABS: BASOPHILS 0.1 % (0-2); EOSINOPHILS 0 % (0-7); HEMATOCRIT 31.6 % (36.0-48.0); HEMOGLOBIN 9.9 g/dL (12-16); LYMPHOCYTES 23.4 % (15-50); MCH 29.1 pg (26.0-34.0); MCHC 31.3 g/dL (31.0-37.0); MCV 92.9 fL (80.0-100.0); MEAN PLATELET VOLUME 8.6 fL (7.4-10.4); MONOCYTES 6.2 % (2-11); NEUTROPHILS 69.3 % (40-80); RDW 14.9 % (11.5-14.5); WBC 7.8 10x3/uL (4.8-10.8)
[2020-03-23 06:45] LABS: PLATELET COUNT 252 10x3/uL (130-400)
--- NOTE | 2020-03-23 07:10 | NUR ---
REPORT RECIEVED FROM INK JET OPERATOR AND PATIENT CARE ASSUMED. PATIENT LAYING IN BED ON BACK WITH EYES OPEN AND FOLLOWING COMMANDS. PATIENT DENIES ANY NEEDS OR PAIN. VSS. ON VENT WITH TRACH. ORTIZ DRAINING YELLOW URINE. WILL CONTINUE WITH PLAN OF CARE. SR UP X 2 BED IN LOW POSITION AND CALL LIGHT IN REACH.
[2020-03-24] VITALS (24 sets, daily range): BP systolic 105–186; BP diastolic 73–102
--- NOTE | 2020-03-24 07:15 | NUR ---
PT LAYING IN BED RESTING COMFORTABLE , PT ALERT AND ORIENTED, BUT NONVERBAL DUE TO TRACH, ORAL CARE PROVIDED AND PT REPOSITIONED FOR COMFORT, WILL MONITOR
--- NOTE | 2020-03-24 10:00 | NUR ---
NO CHANGES, RESTING COMFORTABLE, CALL LIGHT IN REACH, WILL MONITOR
[2020-03-24 11:55] LABS: BASOPHILS 0 % (0-2); EOSINOPHILS 0 % (0-7); HEMATOCRIT 34.6 % (36.0-48.0); HEMOGLOBIN 11.2 g/dL (12-16); IMMATURE GRANULOCYTES 0.5 % (0-5); LYMPHOCYTES 8.4 % (15-50); MCH 29.2 pg (26.0-34.0); MCHC 32.4 g/dL (31.0-37.0); MCV 90.3 fL (80.0-100.0); MEAN PLATELET VOLUME 8.7 fL (7.4-10.4); MONOCYTES 3.7 % (2-11); NEUTROPHILS 87.4 % (40-80); PLATELET COUNT 245 10x3/uL (130-400); RBC 3.83 10x6/uL (4.00-5.40); RDW 14.6 % (11.5-14.5); WBC 15.5 10x3/uL (4.8-10.8)
[2020-03-24 12:09] LABS: ALBUMIN 2.7 g/dL (3.4-5.0); ALKALINE PHOSPHATASE 108 U/L (30-120); ALT (SGPT) 46 U/L (10-68); BILIRUBIN - TOTAL 1.33 mg/dL (0.2-1.3); CALC OSMOLALITY 277 mosm/kg (275-300); CALCIUM 10.3 mg/dL (8.5-10.1); CHLORIDE - SERUM 101 mmol/L (98-107); CREATININE - SERUM 0.3 mg/dL (0.6-1.3); GLUCOSE 126 mg/dL (74-106); PROTEIN - SERUM 7.1 g/dL (6.4-8.2); SODIUM 137 mmol/L (136-145); UREA NITROGEN 18 mg/dL (7-18); eGFR NON AFRICAN AMERICAN > 90 mL/min (90-120)
[2020-03-24 12:17] LABS: POTASSIUM - SERUM 2.7 mmol/L (3.5-5.1)
--- NOTE | 2020-03-24 12:45 | NUR ---
DR. FLYNN HERE SEEING PATIENT
--- NOTE | 2020-03-24 14:40 | NUR ---
pt vomitting brown emesis, prn zofran given at this time, will monitor
--- NOTE | 2020-03-24 15:10 | NUR ---
pt resting comfortable denies nausea at this time, HOB ELEVATED, WILL MONITOR
--- NOTE | 2020-03-24 17:58 | NUR ---
secreations suctioned via trach, oral care provided, call light in reach, will monitor
--- NOTE | 2020-03-24 18:46 | NUR ---
TEMP 101.6 DR FLYNN NOTIFIED OF THIS. CULTURES ORDERED.
--- NOTE | 2020-03-24 21:00 | NUR ---
PT CALLED, PASSWORD PROVIDED, UPDATE GIVEN AND ALL QUESTIONS ANSWERED.
[2020-03-25] VITALS (24 sets, daily range): BP systolic 91–183; BP diastolic 41–96
[2020-03-25 06:26] LABS: BASOPHILS 0.1 % (0-2); EOSINOPHILS 0.1 % (0-7); HEMOGLOBIN 10.2 g/dL (12-16); IMMATURE GRANULOCYTES 0.5 % (0-5); LYMPHOCYTES 7.3 % (15-50); MCHC 31.9 g/dL (31.0-37.0); MCV 90.9 fL (80.0-100.0); MEAN PLATELET VOLUME 9.5 fL (7.4-10.4); MONOCYTES 3.1 % (2-11); NEUTROPHILS 88.9 % (40-80); RBC 3.52 10x6/uL (4.00-5.40); RDW 14.8 % (11.5-14.5); WBC 17.2 10x3/uL (4.8-10.8)
[2020-03-25 06:35] LABS: PLATELET COUNT 307 10x3/uL (130-400)
[2020-03-25 07:19] LABS: ALBUMIN 2.2 g/dL (3.4-5.0); ALKALINE PHOSPHATASE 119 U/L (30-120); ALT (SGPT) 48 U/L (10-68); BILIRUBIN - TOTAL 1.26 mg/dL (0.2-1.3); CALC OSMOLALITY 280 mosm/kg (275-300); CALCIUM 9.9 mg/dL (8.5-10.1); CARBON DIOXIDE 26.1 mmol/L (21.0-32.0); CHLORIDE - SERUM 103 mmol/L (98-107); CREATININE - SERUM 0.3 mg/dL (0.6-1.3); GLUCOSE 125 mg/dL (74-106); MAGNESIUM - SERUM 2.1 mg/dL (1.8-2.4); PHOSPHOROUS 1.9 mg/dL (2.5-4.9); POTASSIUM - SERUM 3.6 mmol/L (3.5-5.1); PROTEIN - SERUM 6.8 g/dL (6.4-8.2); SODIUM 139 mmol/L (136-145); UREA NITROGEN 17 mg/dL (7-18); eGFR NON AFRICAN AMERICAN > 90 mL/min (90-120)
--- NOTE | 2020-03-25 10:00 | NUR ---
urine sample sent to the lab
--- NOTE | 2020-03-25 12:33 | NUR ---
Nutrition follow-up: Pt with trach to vent PEG tube to suction TF of Pulmocare aff 2/2 vomiting ProcalAmine PPN @ 75 ml/hr Labs reviewe Wt: 218# Recommend restarting TF when medically feasible RDN following.
--- NOTE | 2020-03-25 14:00 | NUR ---
A line DC'd at this time, catheter intact, gauze applied to site
--- NOTE | 2020-03-25 14:09 | OP ---
PATIENT NAME: DENNIS GREEN MEDICAL RECORD: [id number] :56 LOCATION:[facility] [place] [facility] D.2314 ADMISSION DATE:02/09/20 SURGEON: BERNADINE PARKER MD DATE OF OPERATION: 03/07/2020 PREOPERATIVE DIAGNOSES: 1. Acute respiratory failure, on the ventilator. 2. COVID positive. 3. Hypertension. 4. Bacteremia. POSTOPERATIVE DIAGNOSES: 1. Acute respiratory failure, on the ventilator. 2. COVID positive. 3. Hypertension. 4. Bacteremia. PROCEDURES: 1. A 7-Nicaraguan percutaneous tracheostomy placement. 2. A 20-Nicaraguan PEG tube placement. SURGEON: Bernadine Parker MD REPORT OF PROCEDURE: The patient's neck was prepped and draped in sterile fashion. A bronchoscope was inserted through the indwelling endotracheal tube and we backed this up into good position. A skin incision was made on the inferior aspect of the neck and I was able to palpate down to the tracheal rings. An Angiocath needle was inserted under direct visualization into the trachea between the rings. Through this, I was able to pass a wire. Over this wire, a dilator was placed followed by the white Rhino dilator. Over this, we then placed the 7-Nicaraguan tracheostomy tube and the balloon was insufflated. We passed the scope down through this and saw no evidence of any active bleeding and cleaned out the lung as best as possible. We then sutured the tracheostomy into position with 3-0 nylon. At this point, an Olympus endoscope was advanced through the mouth and esophagus. We insufflated the stomach and found the area to house our PEG tube. The abdomen was prepped and draped. A skin incision was made with an 11 blade and we passed an Angiocath needle through the abdominal wall into the gastric lumen. Through this, we passed a wire which was grasped and pulled through the mouth and esophagus with an Endo snare. We affixed the wire to the PEG tube and these were all pulled through the mouth and esophagus and through the abdominal wall. This was noted to be in good position as we placed the scope back into the gastric lumen and we saw no evidence of any bleeding. COMPLICATIONS: None. CONDITION: Critical. ANESTHESIA: General endotracheal. BLOOD LOSS: Minimal. Procedure was done in the ICU at the bedside. NTS:[id number] Voice Confirmation ID: [id number] DOCUMENT ID: [id number] OPERATIVE REPORT [id number] DENNIS GREEN 03/21/2020 Edited date, dmm. BERNADINE PARKER MD at 1409 CC: [id number] DICTATION DATE: 03/14/20 1442 MEDICAL CLAIMS EXAMINER: 03/14/20 2253 ADM IN [facility] [address] [id number]
--- NOTE | 2020-03-25 14:17 | MORECARE ---
CASE MANAGEMENT DISCHARGE SUMMARY PATIENT: DENNIS KHAN UNIT: [id number] ADM DATE: 02/09/20 AGE: 59 : 56 SEX: F ROOM/BED: D.2314 AUTHOR: RICKY,DOC PHYSICIAN: REFERRING PHYSICIAN: URBANO EDDY DO DATE OF SERVICE: 03/25/20 Discharge Plan Patient Name: DENNIS KHAN Facility: [facility]:[place] : 1960 Planned Disposition: Anticipated Discharge Date: Discharge Date: Expected LOS: Initial Reviewer: [email or web address] Initial Review Date: 02/09/2020 Generated: 03/25/20 3:16 pm Comments DCP- Discharge Planning Updated by [id number]: vEy Jason on 03/20/20 3:[address] CM CALLED TO VERIFY AREA OF SEARCH ? IF HE SAID [place]. HE WILL STILL DISCUSS WITH HIS SON. HE STATES THEY LIVE ABOUT [address] [place]WEEN [place] AND [place] BUT ALL OF HIS DOCTORS IE. HIS CANCER DOCTOR IS IN [place]. HE PLANS TO DISCUSS WITH HIS SON AND ADVISE CM OF DECISION. LTAC IN [place] PER [employer] [facility] [phone] [facility]- [phone] [facility] [phone]. CM AWAIT DECISION. DCP- Discharge Planning Updated by [id number]: Evy Jason on 03/20/20 1:[address] TELEPHONED AND SPOKE WITH PATIENT'S . GAVE UPDATE REGARDING REFERRALS TO LTAC. HER TYRELL DOES NOT WISH TO WIDEN SEARCH OUTSIDE OF THE IMMEDIARE AREA. HE WILL DISCUSS WITH ELANA (SON). DCP- Discharge Planning Updated by [id number]: Evy Jason on 03/19/20 1:[address] CM SPOKE WITH LORIN AT [facility]. THEY ARE NOT ACCEPTING COVID PATIENTS AT THIS TIME. CM SPOKE W/ [facility]. NO BEDS AVAILABLE. LONG WAITING LIST. TELEPHONED IVORY AT [facility]. LEFT VM AT [phone]. IF FAMILY AGREES TO WIDEN THE SEARCH, WILL FAX REFERRAL TO [phone]. SPOKE W/ DR THORNTON TO OBTAIN 20 DAY CERTIFICATION. SIGNATURE OBTAINED. FORM PLACED IN THE HARD COVER CHART. DCP- Discharge Planning Updated by [id number]: Nancy Shankar on 03/18/20 3:[address] CM called and left message for Lorin with [facility] requesting update on status of referral. DCP- Discharge Planning Updated by [email or web address]: Elvin Medina on 03/17/20 3:[address] CM attempted to call spouse of patient (Tyrell) at [phone] to discuss LTAC options. CM attempted to call son, Elana at [phone], Elana's spouse answered and gave alternate number for Elana (number undisclosed) and an alternate number for Tyrell ([phone]). Spoke with Elana. Elana stated that TI Henriquez is handling placement and has been working on attempts for [facility] vs [facility]. For continuity, this CM will notify active CM of correspondence and take no further action. CM will continue to follow and will assist as needed with dc plans/needs. DCP- Discharge Planning Updated by [email or web address]: Samantha Navarrete on 03/14/20 5:[address] CM received a message back from Elana her son to send referral packet to [facility]. SHAYNA completed. CM faxed packet to Lorin. CM will continue to follow and assist as needed with discharge planning / needs. DCP- Discharge Planning Updated by [id number]: Samantha Navarrete on 03/13/20 2:[address] CM has attempted to call and text patients son Elana [phone]. to give him the information on LTACH so that he can decide which facility he would like CM to send referral. CM left the information with nursing staff also incase he calls to check in on his mother. CM will continue to follow and assist as needed with discharge planning/ needs. DCP- Discharge Planning Updated by [email or web address]: Samantha Navarrete on 03/12/20 7:[address] LATE ENTRY 03/11/20 TI spoke with patient's son Elana [phone]. He requested for CM to find out if insurance will cover LTACH and what facilities are covered. TI spoke with rep at [facility] regarding coverage and according to the rep it should be a level 2 benefit and will be a 500.00 co pay and then 80% if family deductible has been met then will pay at 100%. As far as which facility as long as the facility takes BCBS of [place] then it will be covered per CM understanding. PA will be required prior to admit. Call ref # [id number]. CM will speak with Elana and convey the information for him to choose an LTACH. DCP- Discharge Planning Updated by [email or web address]: Samantha Navarrete on 03/08/20 8:[address] CM will contact family regarding LTACH placement on Wednesday. CM will need to check to see which facilities are taking COVID patients. CM will continue to follow and assist as needed with d/c planning DCP- Discharge Planning Updated by [email or web address]: Tamela Smith on 02/16/20 3:[address] CM contacted spouse, Tyrell Yoon @[phone], to discuss initial DC planning. Spouse is in agreement to proceed with the assessment. Patient is currently sedated and intubated on a mechanical vent. Per patient's spouse, patient lives independently in her home, with him. 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 Pharmacy: [facility], [place]. HHS: No. DME: None. Emergency contact: Tyrell Yoon and (son) Elana Yoon #[phone]. Patient is Independent with all ADL's, medication management ELECTRONIC DEVELOPMENT TECHNICIAN. CM discussed the availability of HH, Rehab, SNF, OP Therapy, DME services. Patient would benefit from Rehab or HHS upon DC. Spouse agrees to Rehab prior to returning home, if needed. Spouse denies hospitalization within the past 30 days. Spouse denies the use of community resources ELECTRONIC DEVELOPMENT TECHNICIAN. Transportation at time of discharge: Spouse or son. CM will follow and assist PRN with DC needs/plans. DCPIA - Discharge Planning Initial Assessment Updated by [email or web address]: Tamela Smiht on 02/16/20 4:05 pm * Is the patient Alert and Oriented? No * How many steps to enter\exit or inside your home? * PCP Unknown at present * Pharmacy [facility], [place] * Preadmission Environment Home with Family * ADLs Independent * Equipment None * Other Equipment NA * List name and contact numbers for known caregivers / representatives who currently or will assist patient after discharge: Tyrell Yoon (spouse) [phone] Elana Khan (son) [phone] * Verbal permission to speak to the caregivers and representatives has been obtained from the patient. N/A * Community resources currently utilized None * Please name any agencies selected above. NA * Additional services required to return to the preadmission environment? Yes * Can the patient safely return to the preadmission environment? Yes * Has this patient been hospitalized within the prior 30 days at any hospital? No External Providers [facility] Next Contact Date: Service Request Date: Service Type: Resolution: Reviewer: Comments: Coverage Notice Reviewer: [email or web address] Mykel Navarrete Notice Issued Date-Time: 03/14/2020 12:55 Notice Type: Patient Choice Letter Notice Delivered To: Family Member Relationship to Patient: Son [facility] Name: ELANA KHAN Delivery Method: HAND - Hand Delivered Carrie Days: Prior Verbal Notification: Yes Recipient Understood Notice: Yes Recipient Signature: Med Rec Note Co-signed by Attending: Coverage Notice Comment: Last DP export: 03/20/20 3:34 p Patient Name: DENNIS KHAN Page [id number] at 1417 All edits/amendments must be made on the electronic document DICTATION DATE: 03/25/201415 PERMACULTURE DESIGNER: SHELBY 03/25/201415 RPT#: [id number] DC DATE: STATUS: ADM IN [facility] [address] [place] [address] END OF REPORT
--- NOTE | 2020-03-25 17:57 | MORECARE ---
CASE MANAGEMENT DISCHARGE SUMMARY PATIENT: DENNIS KHAN UNIT: [id number] ADM DATE: 02/09/20 AGE: 59 : 56 SEX: F ROOM/BED: D.2314 AUTHOR: RICKY,DOC PHYSICIAN: REFERRING PHYSICIAN: URBANO EDDY DO DATE OF SERVICE: 03/25/20 Discharge Plan Patient Name: DENNIS KHAN Facility: [facility]:[place] : 1960 Planned Disposition: Anticipated Discharge Date: Discharge Date: Expected LOS: Initial Reviewer: [id number] Initial Review Date: 02/09/2020 Generated: 03/25/20 6:57 pm Comments DCP- Discharge Planning Updated by [email or web address]: Samantha Navarrete on 03/25/20 4:[address] CM sent referral to [facility] in [place]. CM was notified at this time they do not have any COVID bed availability but if patient was negative then they would have bed availability in general public bed. Repeat COVID screen. CM will send updated COVID once available. CM discussed this with patient's son Elana. CM will continue to follow and assist as needed with discharge planning / needs. DCP- Discharge Planning Updated by [id number]: Evy Jason on 03/20/20 3:[address] CM CALLED TO VERIFY AREA OF SEARCH ? IF HE SAID [place]. HE WILL STILL DISCUSS WITH HIS SON. HE STATES THEY [place]IVE [place] [address] [place] AND [place] BUT ALL OF HIS DOCTORS IE. HIS CANCER DOCTOR IS IN [place]. HE PLANS TO DISCUSS WITH HIS SON AND ADVISE CM OF DECISION. LTAC IN [place] PER GOGGLE SEARCH [facility] [phone] [facility]- [phone] [facility]- [phone]. CM AWAIT DECISION. DCP- Discharge Planning Updated by [email or web address]: Evy Jason on 03/20/20 1:[address] TELEPHONED AND SPOKE WITH PATIENT'S . GAVE UPDATE REGARDING REFERRALS TO LTAC. HER TYRELL DOES NOT WISH TO WIDEN SEARCH OUTSIDE OF THE IMMEDIARE AREA. HE WILL DISCUSS WITH ELANA (SON). DCP- Discharge Planning Updated by [id number]: Evy Jason on 03/19/20 1:[address] CM SPOKE WITH LORIN AT [facility]. THEY ARE NOT ACCEPTING COVID PATIENTS AT THIS TIME. CM SPOKE W/ [facility]. NO BEDS AVAILABLE. LONG WAITING LIST. TELEPHONED IVORY AT [facility]. LEFT VM AT [phone]. IF FAMILY AGREES TO WIDEN THE SEARCH, WILL FAX REFERRAL TO [phone]. SPOKE W/ DR THORNTON TO OBTAIN 20 DAY CERTIFICATION. SIGNATURE OBTAINED. FORM PLACED IN THE HARD COVER CHART. DCP- Discharge Planning Updated by [email or web address]: Nancy Chaparro on 03/18/20 3:[address] CM called and left message for Lorin with [facility] requesting update on status of referral. DCP- Discharge Planning Updated by [id number]: Elvin Medina on 03/17/20 3:[address] CM attempted to call spouse of patient (Tyrell) at [phone] to discuss LTAC options. CM attempted to call son, Elana at [phone], Elana's spouse answered and gave alternate number for Elana (number undisclosed) and an alternate number for Tyrell ([phone]). Spoke with Elana. Elana stated that [facility] Henriquez is handling placement and has been working on attempts for [place] [facility] vs [facility]. For continuity, this CM will notify active CM of correspondence and take no further action. CM will continue to follow and will assist as needed with dc plans/needs. DCP- Discharge Planning Updated by [email or web address]: Samantha Navarrete on 03/14/20 5:[address] CM received a message back from Elana her son to send referral packet to [facility]. SHAYNA completed. CM faxed packet to Lorin. CM will continue to follow and assist as needed with discharge planning / needs. DCP- Discharge Planning Updated by [id number]: Samantha Navarrete on 03/13/20 2:[address] CM has attempted to call and text patients son Elana [phone]. to give him the information on LTACH so that he can decide which facility he would like CM to send referral. CM left the information with nursing staff also incase he calls to check in on his mother. CM will continue to follow and assist as needed with discharge planning/ needs. DCP- Discharge Planning Updated by [id number]: Samantha Gonzalezr on 03/12/20 7:[address] LATE ENTRY 03/11/20 CM spoke with patient's son Elana [phone]. He requested for CM to find out if insurance will cover LTACH and what facilities are covered. CM spoke with rep at [facility] regarding coverage and according to the rep it should be a level 2 benefit and will be a 500.00 co pay and then 80% if family deductible has been met then will pay at 100%. As far as which facility as long as the facility takes BS of [place] then it will be covered per CM understanding. PA will be required prior to admit. Call ref # [id number]. CM will speak with Elana and convey the information for him to choose an LTACH. DCP- Discharge Planning Updated by [id number]: Samantha Gonzalezr on 03/08/20 8:[address] CM will contact family regarding LTACH placement on Wednesday. CM will need to check to see which facilities are taking COVID patients. CM will continue to follow and assist as needed with d/c planning DCP- Discharge Planning Updated by [email or web address]: Tamela Smith on 02/16/20 3:[address] CM contacted spouse, Tyrell Yoon @[phone], to discuss initial DC planning. Spouse is in agreement to proceed with the assessment. Patient is currently sedated and intubated on a mechanical vent. Per patient's spouse, patient lives independently in her home, with him. 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 [facility] HHS: No. DME: None. Emergency contact: Tyrell Yoon and (son) Elana Yoon #[phone]. Patient is Independent with all ADL's, medication management CERTIFIED LACTATION COUNSELOR. CM discussed the availability of HH, Rehab, SNF, OP Therapy, DME services. Patient would benefit from Rehab or HHS upon DC. Spouse agrees to Rehab prior to returning home, if needed. Spouse denies hospitalization within the past 30 days. Spouse denies the use of community resources CERTIFIED LACTATION COUNSELOR. Transportation at time of discharge: Spouse or son. CM will follow and assist PRN with DC needs/plans. DCPIA - Discharge Planning Initial Assessment Updated by [id number]: Tamela Smith on 02/16/20 4:05 pm * Is the patient Alert and Oriented? No * How many steps to enter\exit or inside your home? * PCP Unknown at present * Pharmacy [facility] [place] * Preadmission Environment Home with Family * ADLs Independent * Equipment None * Other Equipment NA * List name and contact numbers for known caregivers / representatives who currently or will assist patient after discharge: Tyrell Yoon (spouse) [phone] Elana Khan (son) [phone] * Verbal permission to speak to the caregivers and representatives has been obtained from the patient. N/A * Community resources currently utilized None * Please name any agencies selected above. NA * Additional services required to return to the preadmission environment? Yes * Can the patient safely return to the preadmission environment? Yes * Has this patient been hospitalized within the prior 30 days at any hospital? No Coverage Notice Reviewer: [id number] Mykel Navarrete Notice Issued Date-Time: 03/14/2020 12:55 Notice Type: Patient Choice Letter Notice Delivered To: Family Member Relationship to Patient: Son Archery Equipment Repairer Name: ELANA KHAN Delivery Method: HAND - Hand Delivered Carrie Days: Prior Verbal Notification: Yes Recipient Understood Notice: Yes Recipient Signature: Med Rec Note Co-signed by Attending: Coverage Notice Comment: Last DP export: 03/25/20 1:17 Patient Name: DENNIS KHAN Page [id number] at 1757 All edits/amendments must be made on the electronic document DICTATION DATE: 03/25/201756 ADOLESCENT COORDINATOR: SHELBY 03/25/201756 RPT#: [id number] DC DATE: STATUS: ADM IN [facility] [address] [place] [address] END OF REPORT
[2020-03-26] VITALS (17 sets, daily range): BP systolic 140–165; BP diastolic 71–92
[2020-03-26 02:16] LABS: BILIRUBIN NEGATIVE (NEGATIVE); KETONE NEGATIVE (NEGATIVE); NITRITE NEGATIVE (NEGATIVE); UROBILINOGEN 8 mg/dL (< 2)
[2020-03-26 02:17] LABS: BACTERIA MANY HPF (NONE SEEN); EPITHELIAL CELLS 0-5 /hpf (0-5); WHITE CELLS - URINE 0-5 HPF (0-4); YEAST <1+ /hpf (NONE SEEN)
[2020-03-26 05:53] LABS: BASOPHILS 0.2 % (0-2); EOSINOPHILS 0.5 % (0-7); HEMATOCRIT 29.2 % (36.0-48.0); HEMOGLOBIN 8.9 g/dL (12-16); IMMATURE GRANULOCYTES 0.4 % (0-5); LYMPHOCYTES 15.8 % (15-50); MCH 28.3 pg (26.0-34.0); MCHC 30.5 g/dL (31.0-37.0); MCV 92.7 fL (80.0-100.0); MEAN PLATELET VOLUME 9.1 fL (7.4-10.4); MONOCYTES 5.6 % (2-11); NEUTROPHILS 77.5 % (40-80); PLATELET COUNT 283 10x3/uL (130-400); RBC 3.15 10x6/uL (4.00-5.40); RDW 14.9 % (11.5-14.5)
[2020-03-26 05:56] LABS: WBC 9.6 10x3/uL (4.8-10.8)
[2020-03-26 07:15] LABS: ALBUMIN 2.1 g/dL (3.4-5.0); ALKALINE PHOSPHATASE 101 U/L (30-120); ALT (SGPT) 41 U/L (10-68); BILIRUBIN - TOTAL 0.74 mg/dL (0.2-1.3); CALC OSMOLALITY 277 mosm/kg (275-300); CALCIUM 9.8 mg/dL (8.5-10.1); CARBON DIOXIDE 29.7 mmol/L (21.0-32.0); CHLORIDE - SERUM 102 mmol/L (98-107); CREATININE - SERUM 0.4 mg/dL (0.6-1.3); GLUCOSE 102 mg/dL (74-106); PROTEIN - SERUM 6.1 g/dL (6.4-8.2); SODIUM 138 mmol/L (136-145); UREA NITROGEN 17 mg/dL (7-18); eGFR NON AFRICAN AMERICAN > 90 mL/min (90-120)
[2020-03-26 07:17] LABS: POTASSIUM - SERUM 2.9 mmol/L (3.5-5.1)
--- NOTE | 2020-03-26 15:31 | NUR ---
Nutrition follow-up: Received order from Dr. Andrea to start TPN. Labs reviewed TPN ordered to start @ 40 ml/hr Intralipids 20% 250 ml q 72 hours RDN following.
--- NOTE | 2020-03-26 22:09 | NUR ---
CALLED UNIT FOR UPDATE. QUESTIONS ANSWERED BEST POSSIBLE.
[2020-03-27] VITALS (24 sets, daily range): BP systolic 133–162; BP diastolic 71–94
[2020-03-27 05:27] LABS: CREATININE - SERUM 0.4 mg/dL (0.6-1.3); MAGNESIUM - SERUM 1.9 mg/dL (1.8-2.4)
[2020-03-27 05:28] LABS: PHOSPHOROUS 2.9 mg/dL (2.5-4.9)
[2020-03-27 06:10] LABS: BASOPHILS 0.1 % (0-2); EOSINOPHILS 1.6 % (0-7); HEMOGLOBIN 9.3 g/dL (12-16); IMMATURE GRANULOCYTES 0.6 % (0-5); LYMPHOCYTES 21.1 % (15-50); MCH 28.4 pg (26.0-34.0); MCV 91.5 fL (80.0-100.0); MEAN PLATELET VOLUME 9.5 fL (7.4-10.4); MONOCYTES 6.6 % (2-11); PLATELET COUNT 292 10x3/uL (130-400); RBC 3.28 10x6/uL (4.00-5.40); RDW 14.6 % (11.5-14.5)
[2020-03-27 06:17] LABS: CALC OSMOLALITY 274 mosm/kg (275-300); CALCIUM 9.8 mg/dL (8.5-10.1); CARBON DIOXIDE 29.5 mmol/L (21.0-32.0); CHLORIDE - SERUM 101 mmol/L (98-107); CREATININE - SERUM 0.4 mg/dL (0.6-1.3); GLUCOSE 107 mg/dL (74-106); POTASSIUM - SERUM 3.9 mmol/L (3.5-5.1); SODIUM 137 mmol/L (136-145); UREA NITROGEN 15 mg/dL (7-18); eGFR NON AFRICAN AMERICAN > 90 mL/min (90-120)
--- NOTE | 2020-03-27 12:44 | NUR ---
Nutrition follow-up: Pt with trach to vent PEG tube to LIWS TPN started 03/26 @ 40 ml/hr Labs reviewed Will continue current TPN formula. RDN following.
--- NOTE | 2020-03-27 12:54 | NUR ---
SWITCHED PT TO CPAP ON VENT BY RT.
[2020-03-28] VITALS (21 sets, daily range): BP systolic 128–163; BP diastolic 76–93
[2020-03-28 06:46] LABS: CREATININE - SERUM 0.4 mg/dL (0.6-1.3); MAGNESIUM - SERUM 2.1 mg/dL (1.8-2.4)
--- NOTE | 2020-03-28 07:10 | NUR ---
REPORT RECIEVED FROM OPERATOR COATING FURNACE AND PATIENT CARE ASSUMED. PATIENT LAYING IN BED ON BACK WITH EYES OPEN. PATIENT IS ALERT AND ORINETED X 4. PATIENT DENIES ANY NEEDS OR PAIN. VENT AC16 TV450 FIO2 40% PEEP 7. ORTIZ CATHETER DRAINING TO GRAVITY YELLOW URINE. WILL CONTINUE WITH PLAN OF CARE. SR UP X 2 BED IN LOW POSITION AND CALL LIGHT IN REACH.
[2020-03-28 08:00] LABS: CALC OSMOLALITY 279 mosm/kg (275-300); CALCIUM 10.3 mg/dL (8.5-10.1); CARBON DIOXIDE 27.3 mmol/L (21.0-32.0); CHLORIDE - SERUM 100 mmol/L (98-107); CREATININE - SERUM 0.4 mg/dL (0.6-1.3); GLUCOSE 109 mg/dL (74-106); POTASSIUM - SERUM 3.5 mmol/L (3.5-5.1); SODIUM 139 mmol/L (136-145); UREA NITROGEN 14 mg/dL (7-18); eGFR NON AFRICAN AMERICAN > 90 mL/min (90-120)
--- NOTE | 2020-03-28 08:05 | NUR ---
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 Recommend trickle feeds for Pulmocare @ 10 ml/hr to keep gut stimulated and prevent gut atrophy. RDN following.
--- NOTE | 2020-03-28 16:02 | MORECARE ---
CASE MANAGEMENT DISCHARGE SUMMARY PATIENT: DENNIS KHAN UNIT: [id number] ADM DATE: 02/09/20 AGE: 59 : 56 SEX: F ROOM/BED: D.2314 AUTHOR: RICKY,DOC PHYSICIAN: REFERRING PHYSICIAN: URBANO EDDY DO DATE OF SERVICE: 03/28/20 Discharge Plan Patient Name: DENNIS KHAN Facility: [facility]:[place] : 1960 Planned Disposition: Anticipated Discharge Date: Discharge Date: Expected LOS: Initial Reviewer: [id number] Initial Review Date: 02/09/2020 Generated: 03/28/20 5:01 pm Comments DCP- Discharge Planning Updated by [email or web address]: Samantha Navarrete on 03/25/20 4:[address] CM sent referral to [facility] in [place]. CM was notified at this time they do not have any COVID bed availability but if patient was negative then they would have bed availability in general public bed. Repeat COVID screen. CM will send updated COVID once available. CM discussed this with patient's son Elana. CM will continue to follow and assist as needed with discharge planning / needs. DCP- Discharge Planning Updated by [id number]: Evy Jason on 03/20/20 3:[address] CM CALLED TO VERIFY AREA OF SEARCH ? IF HE SAID [place]. HE WILL STILL DISCUSS WITH HIS SON. HE STATES THEY LIVE [place] [address] [place] BUT ALL OF HIS DOCTORS IE. HIS CANCER DOCTOR IS IN [place]. HE PLANS TO DISCUSS WITH HIS SON AND ADVISE CM OF DECISION. LTAC IN [place] PER [facility]LE SEARCH [facility] [phone] [facility]- [phone] [facility]- [phone]. CM AWAIT DECISION. DCP- Discharge Planning Updated by [id number]: Evy Jason on 03/20/20 1:[address] TELEPHONED AND SPOKE WITH PATIENT'S . GAVE UPDATE REGARDING REFERRALS TO LTAC. HER TYRELL DOES NOT WISH TO WIDEN SEARCH OUTSIDE OF THE IMMEDIARE AREA. HE WILL DISCUSS WITH ELANA (SON). DCP- Discharge Planning Updated by [id number]: Evy Jason on 03/19/20 1:[address] CM SPOKE WITH LORIN AT [facility]. THEY ARE NOT ACCEPTING COVID PATIENTS AT THIS TIME. CM SPOKE W/ [facility]. NO BEDS AVAILABLE. LONG WAITING LIST. TELEPHONED IVORY AT [facility]. LEFT VM AT [phone]. IF FAMILY AGREES TO WIDEN THE SEARCH, WILL FAX REFERRAL TO [phone]. SPOKE W/ DR THORNTON TO OBTAIN 20 DAY CERTIFICATION. SIGNATURE OBTAINED. FORM PLACED IN THE HARD COVER CHART. DCP- Discharge Planning Updated by [id number]: Nancy Chaparro on 03/18/20 3:[address] CM called and left message for Lorin with [facility] requesting update on status of referral. DCP- Discharge Planning Updated by [id number]: Elvin Medina on 03/17/20 3:[address] CM attempted to call spouse of patient (Tyrell) at [phone] to discuss LTAC options. CM attempted to call son, Elana at [phone], Elana's spouse answered and gave alternate number for Elana (number undisclosed) and an alternate number for Tyrell ([phone]). Spoke with Elana. Elana stated that TI Henriquez is handling placement and has been working on attempts for [place] [facility] vs [facility]. For continuity, this CM will notify active CM of correspondence and take no further action. CM will continue to follow and will assist as needed with dc plans/needs. DCP- Discharge Planning Updated by [email or web address]: Samantha Navarrete on 03/14/20 5:[address] CM received a message back from Elana her son to send referral packet to [facility]. SHAYNA completed. CM faxed packet to Lorin. CM will continue to follow and assist as needed with discharge planning / needs. DCP- Discharge Planning Updated by [id number]: Samantha Navarrete on 03/13/20 2:[address] CM has attempted to call and text patients son Elana [phone]. to give him the information on LTACH so that he can decide which facility he would like CM to send referral. CM left the information with nursing staff also incase he calls to check in on his mother. CM will continue to follow and assist as needed with discharge planning/ needs. DCP- Discharge Planning Updated by [email or web address]: Samantha Gonzalezr on 03/12/20 7:[address] LATE ENTRY 03/11/20 CM spoke with patient's son Elana [phone]. He requested for CM to find out if insurance will cover LTACH and what facilities are covered. CM spoke with rep at [facility] regarding coverage and according to the rep it should be a level 2 benefit and will be a 500.00 co pay and then 80% if family deductible has been met then will pay at 100%. As far as which facility as long as the facility takes BS of [place] then it will be covered per CM understanding. PA will be required prior to admit. Call ref # [id number]. CM will speak with Elana and convey the information for him to choose an LTACH. DCP- Discharge Planning Updated by [id number]: Samantha Gonzalezr on 03/08/20 8:[address] CM will contact family regarding LTACH placement on Wednesday. CM will need to check to see which facilities are taking COVID patients. CM will continue to follow and assist as needed with d/c planning DCP- Discharge Planning Updated by [email or web address]: Tamela Smith on 02/16/20 3:[address] CM contacted spouse, Tyrell Yoon @[phone], to discuss initial DC planning. Spouse is in agreement to proceed with the assessment. Patient is currently sedated and intubated on a mechanical vent. Per patient's spouse, patient lives independently in her home, with him. 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 [facility] HHS: No. DME: None. Emergency contact: Tyrell Yoon and (son) Elana Yoon #[phone]. Patient is Independent with all ADL's, medication management PROSTHETIC LAB TECHNICIAN. CM discussed the availability of HH, Rehab, SNF, OP Therapy, DME services. Patient would benefit from Rehab or HHS upon DC. Spouse agrees to Rehab prior to returning home, if needed. Spouse denies hospitalization within the past 30 days. Spouse denies the use of community resources PROSTHETIC LAB TECHNICIAN. Transportation at time of discharge: Spouse or son. CM will follow and assist PRN with DC needs/plans. DCPIA - Discharge Planning Initial Assessment Updated by [email or web address]: Tamela Smith on 02/16/20 4:05 pm * Is the patient Alert and Oriented? No * How many steps to enter\exit or inside your home? * PCP Unknown at present * Pharmacy [facility] [place] * Preadmission Environment Home with Family * ADLs Independent * Equipment None * Other Equipment NA * List name and contact numbers for known caregivers / representatives who currently or will assist patient after discharge: Tyrell Karrie (spouse) [phone] Elana Khan (son) [phone] * Verbal permission to speak to the caregivers and representatives has been obtained from the patient. N/A * Community resources currently utilized None * Please name any agencies selected above. NA * Additional services required to return to the preadmission environment? Yes * Can the patient safely return to the preadmission environment? Yes * Has this patient been hospitalized within the prior 30 days at any hospital? No External Providers [facility] Next Contact Date: Service Request Date: Service Type: Resolution: Reviewer: Comments: External Provider: [facility] Next Contact Date: Service Request Date: Service Type: Resolution: Reviewer: Comments: External Provider: [facility] Next Contact Date: Service Request Date: Service Type: Resolution: Reviewer: Comments: Coverage Notice Reviewer: [id number] Mykel Navarrete Notice Issued Date-Time: 03/14/2020 12:55 Notice Type: Patient Choice Letter Notice Delivered To: Family Member Relationship to Patient: Son Sample Stitcher Name: ELANA KHAN Delivery Method: HAND - Hand Delivered Carrie Days: Prior Verbal Notification: Yes Recipient Understood Notice: Yes Recipient Signature: Med Rec Note Co-signed by Attending: Coverage Notice Comment: Last DP export: 03/25/20 4:57 Patient Name: DENNIS KHAN Page 07885 at 1602 All edits/amendments must be made on the electronic document DICTATION DATE: 03/28/20 1601 PLANNING SUPERVISOR: SHELBY 03/28/20 1601 RPT#: [id number] DC DATE: STATUS: ADM IN [facility] [address] [place] [address] END OF REPORT
--- NOTE | 2020-03-28 16:20 | MORECARE ---
CASE MANAGEMENT DISCHARGE SUMMARY PATIENT: DENNIS KHAN UNIT: [id number] ADM DATE: 02/09/20 AGE: 59 : 56 SEX: F ROOM/BED: D.2314 AUTHOR: RICKY,DOC PHYSICIAN: REFERRING PHYSICIAN: URBANO EDDY DO DATE OF SERVICE: 03/28/20 Discharge Plan Patient Name: DENNIS KHAN Facility: [facility]:[place] : 1960 Planned Disposition: Anticipated Discharge Date: Discharge Date: Expected LOS: Initial Reviewer: [id number] Initial Review Date: 02/09/2020 Generated: 03/28/20 5:20 pm Comments DCP- Discharge Planning Updated by [id number]: Samantha Navarrete on 03/28/20 3:[address] LATE ENTRY 03/26/20 patient's COVID screen came back negative. CM sent updates to [facility] in [place]. CM notified LTACH of results and they are planning to send for auth. DCP- Discharge Planning Updated by [id number]: Samantha Navarrete on 03/25/20 4:[address] CM sent referral to [facility] in [place]. CM was notified at this time they do not have any COVID bed availability but if patient was negative then they would have bed availability in general public bed. Repeat COVID screen. CM will send updated COVID once available. CM discussed this with patient's son Elana. CM will continue to follow and assist as needed with discharge planning / needs. DCP- Discharge Planning Updated by [email or web address]: Evy Jason on 03/20/20 3:[address] CM CALLED TO VERIFY AREA OF SEARCH ? IF HE SAID [place]. HE WILL STILL DISCUSS WITH HIS SON. HE STATES THEY [place]IVE [place] [address] [place] AND [place] BUT ALL OF HIS DOCTORS IE. HIS CANCER DOCTOR IS IN [place]. HE PLANS TO DISCUSS WITH HIS SON AND ADVISE CM OF DECISION. LTAC IN [place] PER GOGGLE SEARCH [facility] [phone] [facility]- [phone] [facility] [phone]. CM AWAIT DECISION. DCP- Discharge Planning Updated by [id number]: Evy Jason on 03/20/20 1:[address] TELEPHONED AND SPOKE WITH PATIENT'S . GAVE UPDATE REGARDING REFERRALS TO LTAC. HER TYRELL DOES NOT WISH TO WIDEN SEARCH OUTSIDE OF THE IMMEDIARE AREA. HE WILL DISCUSS WITH ELANA (SON). DCP- Discharge Planning Updated by [email or web address]: Evy Jason on 03/19/20 1:[address] CM SPOKE WITH LORIN AT [facility]. THEY ARE NOT ACCEPTING COVID PATIENTS AT THIS TIME. CM SPOKE W/ [facility]. NO BEDS AVAILABLE. LONG WAITING LIST. TELEPHONED IVORY AT [facility]. LEFT VM AT [phone]. IF FAMILY AGREES TO WIDEN THE SEARCH, WILL FAX REFERRAL TO [phone]. SPOKE W/ DR THORNTON TO OBTAIN 20 DAY CERTIFICATION. SIGNATURE OBTAINED. FORM PLACED IN THE HARD COVER CHART. DCP- Discharge Planning Updated by [id number]: Nancy Chaparro on 03/18/20 3:[address] CM called and left message for Lorin with [facility] requesting update on status of referral. DCP- Discharge Planning Updated by [email or web address]: Elvin Medina on 03/17/20 3:[address] CM attempted to call spouse of patient (Tyrell) at [phone] to discuss LTAC options. CM attempted to call son, Elana at [phone], Elana's spouse answered and gave alternate number for Elana (number undisclosed) and an alternate number for Tyrell ([phone]). Spoke with Elana. Elana stated that TI Henriquez is handling placement and has been working on attempts for [facility] vs [facility]. For continuity, this CM will notify active CM of correspondence and take no further action. CM will continue to follow and will assist as needed with dc plans/needs. DCP- Discharge Planning Updated by [id number]: Samantha Navarrete on 03/14/20 5:[address] CM received a message back from Elana her son to send referral packet to [facility]. SHAYNA completed. CM faxed packet to Lorin. CM will continue to follow and assist as needed with discharge planning / needs. DCP- Discharge Planning Updated by [id number]: Samantha Gonzalezr on 03/13/20 2:[address] CM has attempted to call and text patients son Elana [phone]. to give him the information on LTACH so that he can decide which facility he would like CM to send referral. CM left the information with nursing staff also incase he calls to check in on his mother. CM will continue to follow and assist as needed with discharge planning/ needs. DCP- Discharge Planning Updated by [id number]: Samantha Navarrete on 03/12/20 7:[address] LATE ENTRY 03/11/20 CM spoke with patient's son Elana [phone]. He requested for CM to find out if insurance will cover LTACH and what facilities are covered. CM spoke with rep at [facility] regarding coverage and according to the rep it should be a level 2 benefit and will be a 500.00 co pay and then 80% if family deductible has been met then will pay at 100%. As far as which facility as long as the facility takes [place] then it will be covered per CM understanding. PA will be required prior to admit. Call ref # [id number]. CM will speak with Elana and convey the information for him to choose an LTACH. DCP- Discharge Planning Updated by [id number]: Samantha Navarrete on 03/08/20 8:[address] CM will contact family regarding LTACH placement on Wednesday. CM will need to check to see which facilities are taking COVID patients. CM will continue to follow and assist as needed with d/c planning DCP- Discharge Planning Updated by [id number]: Tamela Smith on 02/16/20 3:[address] CM contacted spouse, Tyrell Yoon @[phone], to discuss initial DC planning. Spouse is in agreement to proceed with the assessment. Patient is currently sedated and intubated on a mechanical vent. Per patient's spouse, patient lives independently in her home, with him. 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 [facility]acy[facility]. HHS: No. DME: None. Emergency contact: Tyrell Vasquezly and (son) Elana Yoon #[phone]. Patient is Independent with all ADL's, medication management WASTE MANAGEMENT RECYCLING TECHNICIAN. CM discussed the availability of HH, Rehab, SNF, OP Therapy, DME services. Patient would benefit from Rehab or HHS upon DC. Spouse agrees to Rehab prior to returning home, if needed. Spouse denies hospitalization within the past 30 days. Spouse denies the use of community resources WASTE MANAGEMENT RECYCLING TECHNICIAN. Transportation at time of discharge: Spouse or son. CM will follow and assist PRN with DC needs/plans. DCPIA - Discharge Planning Initial Assessment Updated by [id number]: Tamela Smith on 02/16/20 4:05 pm * Is the patient Alert and Oriented? No * How many steps to enter\exit or inside your home? * PCP Unknown at present * Pharmacy [facility] [place] * Preadmission Environment Home with Family * ADLs Independent * Equipment None * Other Equipment NA * List name and contact numbers for known caregivers / representatives who currently or will assist patient after discharge: Tyrell Karrie (spouse) [phone] Elana Khan (son) [phone] * Verbal permission to speak to the caregivers and representatives has been obtained from the patient. N/A * Community resources currently utilized None * Please name any agencies selected above. NA * Additional services required to return to the preadmission environment? Yes * Can the patient safely return to the preadmission environment? Yes * Has this patient been hospitalized within the prior 30 days at any hospital? No Coverage Notice Reviewer: [id number] - Samantha Navarrete Notice Issued Date-Time: 03/14/2020 12:55 Notice Type: Patient Choice Letter Notice Delivered To: Family Member Relationship to Patient: Son Fisher Crab Name: ELANA KHAN Delivery Method: HAND - Hand Delivered Carrie Days: Prior Verbal Notification: Yes Recipient Understood Notice: Yes Recipient Signature: Med Rec Note Co-signed by Attending: Coverage Notice Comment: Last DP export: 03/28/20 3:02 Patient Name: DENNIS KHAN Page [id number] at 1620 All edits/amendments must be made on the electronic document DICTATION DATE: 03/28/20 1620 ROOFER VINYL COATING: SHELBY 03/28/20 1620 RPT#: [id number] DC DATE: STATUS: ADM IN [facility] [address] [place] [address] END OF REPORT
--- NOTE | 2020-03-28 16:29 | MORECARE ---
CASE MANAGEMENT DISCHARGE SUMMARY PATIENT: DENNIS KHAN UNIT: [id number] ADM DATE: 02/09/20 AGE: 59 : 56 SEX: F ROOM/BED: D.2314 AUTHOR: RICKY,DOC PHYSICIAN: REFERRING PHYSICIAN: URBANO EDDY DO DATE OF SERVICE: 03/28/20 Discharge Plan Patient Name: DENNIS KHAN Facility: [facility]:[place] : 1960 Planned Disposition: Anticipated Discharge Date: Discharge Date: Expected LOS: Initial Reviewer: [email or web address] Initial Review Date: 02/09/2020 Generated: 03/28/20 5:28 pm Comments DCP- Discharge Planning Updated by [id number]: Samantha Navarrete on 03/28/20 3:[address] LATE ENTRY 03/27/20 CM notified that [place] [facility] was not in network with patient's insurance. CM called and spoke with insurance company and was able to get website to check status of LTACH's that are in network. CM let son know that LTACH was not in network and was given a list of in network facilities. CM awaiting decision on LTACH from family. DCP- Discharge Planning Updated by [id number]: Samantha Navarrete on 03/28/20 3:[address] LATE ENTRY 03/26/20 patient's COVID screen came back negative. CM sent updates to [facility] in [place]. CM notified LTACH of results and they are planning to send for auth. DCP- Discharge Planning Updated by [id number]: Samantha Navarrete on 03/25/20 4:[address] CM sent referral to [facility] in [place]. CM was notified at this time they do not have any COVID bed availability but if patient was negative then they would have bed availability in general public bed. Repeat COVID screen. CM will send updated COVID once available. CM discussed this with patient's son Elana. CM will continue to follow and assist as needed with discharge planning / needs. DCP- Discharge Planning Updated by [id number]: Evy Jason on 03/20/20 3:[address] CM CALLED TO VERIFY AREA OF SEARCH ? IF HE SAID [place]. HE WILL STILL DISCUSS WITH HIS SON. HE STATES THEY LIVE [place] [address] [place] BUT ALL OF HIS DOCTORS IE. HIS CANCER DOCTOR IS IN [place]. HE PLANS TO DISCUSS WITH HIS SON AND ADVISE CM OF DECISION. LTAC IN [place] PER GOGGLE SEARCH [facility] [phone] [facility]- [phone] [facility] [phone]. CM AWAIT DECISION. DCP- Discharge Planning Updated by [id number]: Evy Jason on 03/20/20 1:[address] TELEPHONED AND SPOKE WITH PATIENT'S . GAVE UPDATE REGARDING REFERRALS TO LTAC. HER TYRELL DOES NOT WISH TO WIDEN SEARCH OUTSIDE OF THE IMMEDIARE AREA. HE WILL DISCUSS WITH ELANA (SON). DCP- Discharge Planning Updated by [id number]: Evy Jason on 03/19/20 1:[address] CM SPOKE WITH LORIN AT [facility]. THEY ARE NOT ACCEPTING COVID PATIENTS AT THIS TIME. CM SPOKE W/ [facility]. NO BEDS AVAILABLE. LONG WAITING LIST. TELEPHONED IVORY AT [facility]. LEFT VM AT [phone]. IF FAMILY AGREES TO WIDEN THE SEARCH, WILL FAX REFERRAL TO [phone]. SPOKE W/ DR THORNTON TO OBTAIN 20 DAY CERTIFICATION. SIGNATURE OBTAINED. FORM PLACED IN THE HARD COVER CHART. DCP- Discharge Planning Updated by [id number]: Nancy Chaparro on 03/18/20 3:[address] CM called and left message for Lorin with [facility] requesting update on status of referral. DCP- Discharge Planning Updated by [id number]: Elvin Medina on 03/17/20 3:[address] CM attempted to call spouse of patient (Tyrell) at [phone] to discuss LTAC options. CM attempted to call son, Elana at [phone], Elana's spouse answered and gave alternate number for Elana (number undisclosed) and an alternate number for Tyrell ([phone]). Spoke with Elana. Elana stated that TI Henriquez is handling placement and has been working on attempts for [facility] vs [facility]. For continuity, this CM will notify active CM of correspondence and take no further action. CM will continue to follow and will assist as needed with dc plans/needs. DCP- Discharge Planning Updated by [id number]: Samantha Navarrete on 03/14/20 5:[address] CM received a message back from Elana her son to send referral packet to [facility]. SHAYNA completed. CM faxed packet to Lorin. CM will continue to follow and assist as needed with discharge planning / needs. DCP- Discharge Planning Updated by [id number]: Samantha Navarrete on 03/13/20 2:[address] CM has attempted to call and text patients son Elana [phone]. to give him the information on LTACH so that he can decide which facility he would like CM to send referral. CM left the information with nursing staff also incase he calls to check in on his mother. CM will continue to follow and assist as needed with discharge planning/ needs. DCP- Discharge Planning Updated by [id number]: Samantha Navarrete on 03/12/20 7:[address] LATE ENTRY 03/11/20 CM spoke with patient's son Elana [phone]. He requested for CM to find out if insurance will cover LTACH and what facilities are covered. CM spoke with rep at [facility] regarding coverage and according to the rep it should be a level 2 benefit and will be a 500.00 co pay and then 80% if family deductible has been met then will pay at 100%. As far as which facility as long as the facility takes [facility] [place] then it will be covered per CM understanding. PA will be required prior to admit. Call ref # [id number]. CM will speak with Elana and convey the information for him to choose an LTACH. DCP- Discharge Planning Updated by [id number]: Samantha Navarrete on 03/08/20 8:[address] CM will contact family regarding LTACH placement on Wednesday. CM will need to check to see which facilities are taking COVID patients. CM will continue to follow and assist as needed with d/c planning DCP- Discharge Planning Updated by [id number]: Tamela Smith on 02/16/20 3:[address] CM contacted spouse, Tyrell Yoon @[phone], to discuss initial DC planning. Spouse is in agreement to proceed with the assessment. Patient is currently sedated and intubated on a mechanical vent. Per patient's spouse, patient lives independently in her home, with him. 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 Pharmacy: [facility], [place]. HHS: No. DME: None. Emergency contact: Tyrell Yoon and (son) Elana Yoon #[phone]. Patient is Independent with all ADL's, medication management VEHICLE UPHOLSTERER. CM discussed the availability of HH, Rehab, SNF, OP Therapy, DME services. Patient would benefit from Rehab or HHS upon DC. Spouse agrees to Rehab prior to returning home, if needed. Spouse denies hospitalization within the past 30 days. Spouse denies the use of community resources VEHICLE UPHOLSTERER. Transportation at time of discharge: Spouse or son. CM will follow and assist PRN with DC needs/plans. DCPIA - Discharge Planning Initial Assessment Updated by [email or web address]: Tamela Smith on 02/16/20 4:05 pm * Is the patient Alert and Oriented? No * How many steps to enter\exit or inside your home? * PCP Unknown at present * Pharmacy [facility], [place] * Preadmission Environment Home with Family * ADLs Independent * Equipment None * Other Equipment NA * List name and contact numbers for known caregivers / representatives who currently or will assist patient after discharge: Tyrell Yoon (spouse) [phone] Elana Khan (son) [phone] * Verbal permission to speak to the caregivers and representatives has been obtained from the patient. N/A * Community resources currently utilized None * Please name any agencies selected above. NA * Additional services required to return to the preadmission environment? Yes * Can the patient safely return to the preadmission environment? Yes * Has this patient been hospitalized within the prior 30 days at any hospital? No Coverage Notice Reviewer: [id number] Mykel Navarrete Notice Issued Date-Time: 03/14/2020 12:55 Notice Type: Patient Choice Letter Notice Delivered To: Family Member Relationship to Patient: Son Ice Cream Truck Driver Name: ELANA KHAN Delivery Method: HAND - Hand Delivered Carrie Days: Prior Verbal Notification: Yes Recipient Understood Notice: Yes Recipient Signature: Med Rec Note Co-signed by Attending: Coverage Notice Comment: Last DP export: 03/28/20 3:20 Patient Name: DENNIS KHAN Page [id number] at 1629 All edits/amendments must be made on the electronic document DICTATION DATE: 03/28/201627 HELP DESK ASSOCIATE: SHELBY 03/28/201627 RPT#: [id number] DC DATE: STATUS: ADM IN [facility] [address] [place] [address] END OF REPORT
--- NOTE | 2020-03-28 16:38 | MORECARE ---
CASE MANAGEMENT DISCHARGE SUMMARY PATIENT: DENNIS KHAN UNIT: [id number] ADM DATE: 02/09/20 AGE: 59 : 56 SEX: F ROOM/BED: D.2314 AUTHOR: RICKY,DOC PHYSICIAN: REFERRING PHYSICIAN: URBANO EDDY DO DATE OF SERVICE: 03/28/20 Discharge Plan Patient Name: DENNIS KHAN [facility]: [facility] : 1960 Planned Disposition: Anticipated Discharge Date: Discharge Date: Expected LOS: Initial Reviewer: [email or web address] Initial Review Date: 02/09/2020 Generated: 03/28/20 5:37 pm Comments DCP- Discharge Planning Updated by [email or web address]: Samantha Navarrete on 03/28/20 3:[address] CM received notification from family to send referral to [facility] in . CM faxed referral packet to [facility]. CM will continue to follow and assist as needed with discharge planning needs. DCP- Discharge Planning Updated by [email or web address]: Samantha Navarrete on 03/28/20 3:[address] LATE ENTRY 03/27/20 CM notified that [place] [facility] was not in network with patient's insurance. CM called and spoke with insurance company and was able to get website to check status of LTACH's that are in network. CM let son know that LTACH was not in network and was given a list of in network facilities. CM awaiting decision on LTACH from family. DCP- Discharge Planning Updated by [email or web address]: Samantha Navarrete on 03/28/20 3:[address] LATE ENTRY 03/26/20 patient's COVID screen came back negative. CM sent updates to [facility] in [place]. CM notified LTACH of results and they are planning to send for auth. DCP- Discharge Planning Updated by [email or web address]: Samantha Navarrete on 03/25/20 4:[address] CM sent referral to [facility] in [place]. CM was notified at this time they do not have any COVID bed availability but if patient was negative then they would have bed availability in general public bed. Repeat COVID screen. CM will send updated COVID once available. CM discussed this with patient's son Elana. CM will continue to follow and assist as needed with discharge planning / needs. DCP- Discharge Planning Updated by [id number]: Evy Jason on 03/20/20 3:[address] CM CALLED TO VERIFY AREA OF SEARCH ? IF HE SAID [place]. HE WILL STILL DISCUSS WITH HIS SON. HE STATES THEY LIVE [place] [address] [place] AND [place] BUT ALL OF HIS DOCTORS IE. HIS CANCER DOCTOR IS IN [place]. HE PLANS TO DISCUSS WITH HIS SON AND ADVISE CM OF DECISION. LTAC IN [place] PER [facility] [phone] [facility]- [phone] [facility] [phone]. CM AWAIT DECISION. DCP- Discharge Planning Updated by [email or web address]: Evy Jason on 03/20/20 1:[address] TELEPHONED AND SPOKE WITH PATIENT'S . GAVE UPDATE REGARDING REFERRALS TO LTAC. HER TYRELL DOES NOT WISH TO WIDEN SEARCH OUTSIDE OF THE IMMEDIARE AREA. HE WILL DISCUSS WITH ELANA (SON). DCP- Discharge Planning Updated by [id number]: Evy Jason on 03/19/20 1:[address] CM SPOKE WITH LORIN AT [facility]. THEY ARE NOT ACCEPTING COVID PATIENTS AT THIS TIME. CM SPOKE W/ [facility]. NO BEDS AVAILABLE. LONG WAITING LIST. TELEPHONED IVORY AT [facility]. LEFT VM AT [phone]. IF FAMILY AGREES TO WIDEN THE SEARCH, WILL FAX REFERRAL TO [phone]. SPOKE W/ DR THORNTON TO OBTAIN 20 DAY CERTIFICATION. SIGNATURE OBTAINED. FORM PLACED IN THE HARD COVER CHART. DCP- Discharge Planning Updated by [id number]: Nancy Chaparro on 03/18/20 3:[address] CM called and left message for Lorin with [facility] requesting update on status of referral. DCP- Discharge Planning Updated by [email or web address]: Elvin Medina on 03/17/20 3:[address] CM attempted to call spouse of patient (Tyrell) at [phone] to discuss LTAC options. CM attempted to call son, Elana at [phone], Elana's spouse answered and gave alternate number for Elana (number undisclosed) and an alternate number for Tyrell ([phone]). Spoke with Elana. Elana stated that TI [facility] is handling placement and has been working on attempts for [facility]. For continuity, this CM will notify active CM of correspondence and take no further action. CM will continue to follow and will assist as needed with dc plans/needs. DCP- Discharge Planning Updated by [email or web address]: Samantha Navarrete on 03/14/20 5:[address] CM received a message back from Elana her son to send referral packet to [facility]. SHAYNA completed. CM faxed packet to Lorin. CM will continue to follow and assist as needed with discharge planning / needs. DCP- Discharge Planning Updated by [email or web address]: Samantha Navarrete on 03/13/20 2:[address] CM has attempted to call and text patients son Elana [phone]. to give him the information on LTACH so that he can decide which facility he would like CM to send referral. CM left the information with nursing staff also incase he calls to check in on his mother. CM will continue to follow and assist as needed with discharge planning/ needs. DCP- Discharge Planning Updated by [id number]: Samantha Navarrete on 03/12/20 7:[address] LATE ENTRY 03/11/20 TI spoke with patient's son Elana [phone]. He requested for CM to find out if insurance will cover LTACH and what facilities are covered. TI spoke with rep at [facility] regarding coverage and according to the rep it should be a level 2 benefit and will be a 500.00 co pay and then 80% if family deductible has been met then will pay at 100%. As far as which facility as long as the facility takes [facility] of [place] then it will be covered per CM understanding. PA will be required prior to admit. Call ref # [id number]. CM will speak with Elana and convey the information for him to choose an LTACH. DCP- Discharge Planning Updated by [email or web address]: Samantha Navarrete on 03/08/20 8:[address] CM will contact family regarding LTACH placement on Wednesday. CM will need to check to see which facilities are taking COVID patients. CM will continue to follow and assist as needed with d/c planning DCP- Discharge Planning Updated by [email or web address]: Tamela Smith on 02/16/20 3:[address] CM contacted spouse, Tyrell Yoon @[phone], to discuss initial DC planning. Spouse is in agreement to proceed with the assessment. Patient is currently sedated and intubated on a mechanical vent. Per patient's spouse, patient lives independently in her home, with him. 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 Pharmacy: [facility] [place]. HHS: No. DME: None. Emergency contact: Tyrell Yoon and (son) Elana Yoon #[phone]. Patient is Independent with all ADL's, medication management NURSE EMERGENCY. CM discussed the availability of HH, Rehab, SNF, OP Therapy, DME services. Patient would benefit from Rehab or HHS upon DC. Spouse agrees to Rehab prior to returning home, if needed. Spouse denies hospitalization within the past 30 days. Spouse denies the use of community resources NURSE EMERGENCY. Transportation at time of discharge: Spouse or son. CM will follow and assist PRN with DC needs/plans. DCPIA - Discharge Planning Initial Assessment Updated by [email or web address]: Tamela Smith on 02/16/20 4:05 pm * Is the patient Alert and Oriented? No * How many steps to enter\exit or inside your home? * PCP Unknown at present * Pharmacy [facility] [place] * Preadmission Environment Home with Family * ADLs Independent * Equipment None * Other Equipment NA * List name and contact numbers for known caregivers / representatives who currently or will assist patient after discharge: Tyrell Yoon (spouse) [phone] Elana Khan (son) [phone] * Verbal permission to speak to the caregivers and representatives has been obtained from the patient. N/A * Community resources currently utilized None * Please name any agencies selected above. NA * Additional services required to return to the preadmission environment? Yes * Can the patient safely return to the preadmission environment? Yes * Has this patient been hospitalized within the prior 30 days at any hospital? No Coverage Notice Reviewer: [email or web address] Mykel Navarrete Notice Issued Date-Time: 03/14/2020 12:55 Notice Type: Patient Choice Letter Notice Delivered To: Family Member Relationship to Patient: Son Pediatric Intensive Physician Name: ELANA KHAN Delivery Method: HAND - Hand Delivered Carrie Days: Prior Verbal Notification: Yes Recipient Understood Notice: Yes Recipient Signature: Med Rec Note Co-signed by Attending: Coverage Notice Comment: Last DP export: 03/28/20 3:29 Patient Name: DENNIS KHAN Page 13943 at 1638 All edits/amendments must be made on the electronic document DICTATION DATE: 03/28/201636 HAND MOUNTER: SHELBY 03/28/201636 RPT#: [id number] NM DATE: STATUS: ADM IN [facility] [address] [place] [address] END OF REPORT
[2020-03-29] VITALS (24 sets, daily range): BP systolic 135–168; BP diastolic 70–96
--- NOTE | 2020-03-29 07:53 | NUR ---
PT HAS TESTED NEGATIVE FOR COVID-19 ON 02-24-2020 AND 02-27-2020 MEETING CDC GUIDELINES AND MAY DISCONTINUE COVID-19 ISOLATION. STILL NEEDS TO REMAIN ON DROPLET ISOLATION FOR MRSA ETT.
[2020-03-29 07:55] LABS: MAGNESIUM - SERUM 1.8 mg/dL (1.8-2.4); PHOSPHOROUS 2.3 mg/dL (2.5-4.9)
[2020-03-29 08:27] LABS: CALC OSMOLALITY 276 mosm/kg (275-300); CALCIUM 10.2 mg/dL (8.5-10.1); CARBON DIOXIDE 27.1 mmol/L (21.0-32.0); CHLORIDE - SERUM 100 mmol/L (98-107); CREATININE - SERUM 0.4 mg/dL (0.6-1.3); GLUCOSE 117 mg/dL (74-106); POTASSIUM - SERUM 3.2 mmol/L (3.5-5.1); SODIUM 138 mmol/L (136-145); UREA NITROGEN 13 mg/dL (7-18); eGFR NON AFRICAN AMERICAN > 90 mL/min (90-120)
[2020-03-29 08:56] LABS: BASOPHILS 0.1 % (0-2); EOSINOPHILS 1.6 % (0-7); HEMATOCRIT 30.4 % (36.0-48.0); HEMOGLOBIN 9.4 g/dL (12-16); IMMATURE GRANULOCYTES 3.3 % (0-5); LYMPHOCYTES 27.6 % (15-50); MCH 28.2 pg (26.0-34.0); MCHC 30.9 g/dL (31.0-37.0); MCV 91.3 fL (80.0-100.0); MEAN PLATELET VOLUME 9.1 fL (7.4-10.4); NEUTROPHILS 58.4 % (40-80); PLATELET COUNT 392 10x3/uL (130-400); RBC 3.33 10x6/uL (4.00-5.40); RDW 14.4 % (11.5-14.5); WBC 7.5 10x3/uL (4.8-10.8)
--- NOTE | 2020-03-29 10:14 | NUR ---
Nutrition follow-up: Chart and labs reviewed Pt remains with trach to vent; has been tolerating CPAP trials Awake this morning Ca high, Mg, PO4 low Electolytes adjusted in TPN and rate increase to 60 ml/hr goal RDN following.
--- NOTE | 2020-03-29 10:24 | NUR ---
PS 10
[2020-03-30] VITALS (24 sets, daily range): BP systolic 127–160; BP diastolic 66–92
[2020-03-30 06:27] LABS: CALC OSMOLALITY 274 mosm/kg (275-300); CALCIUM 10.3 mg/dL (8.5-10.1); CARBON DIOXIDE 30.4 mmol/L (21.0-32.0); CHLORIDE - SERUM 100 mmol/L (98-107); CREATININE - SERUM 0.4 mg/dL (0.6-1.3); GLUCOSE 115 mg/dL (74-106); MAGNESIUM - SERUM 1.9 mg/dL (1.8-2.4); PHOSPHOROUS 2.7 mg/dL (2.5-4.9); POTASSIUM - SERUM 3.1 mmol/L (3.5-5.1); SODIUM 137 mmol/L (136-145); UREA NITROGEN 13 mg/dL (7-18); eGFR NON AFRICAN AMERICAN > 90 mL/min (90-120)
--- NOTE | 2020-03-30 07:52 | NUR ---
Nutrition follow-up: Chart and labs reviewed TPN increased to 60 ml/hr Will continue with current TPN order RDN following.
--- NOTE | 2020-03-30 14:04 | NUR ---
0700 REPORT RECIEVED ND CARE ASSUMED OF THE PATIENT SEDE FLOW SHEET FOR SHIFT ASSESMENT FINDINGS.. 1330 DR FLYNN IN TO SEE PATIENT 1400 BATH GIVEN..
[2020-03-31] VITALS (24 sets, daily range): BP systolic 121–159; BP diastolic 59–99
[2020-03-31 08:31] LABS: CALC OSMOLALITY 276 mosm/kg (275-300); CALCIUM 10.1 mg/dL (8.5-10.1); CARBON DIOXIDE 30.3 mmol/L (21.0-32.0); CHLORIDE - SERUM 100 mmol/L (98-107); CREATININE - SERUM 0.3 mg/dL (0.6-1.3); GLUCOSE 113 mg/dL (74-106); MAGNESIUM - SERUM 2.1 mg/dL (1.8-2.4); PHOSPHOROUS 2.5 mg/dL (2.5-4.9); POTASSIUM - SERUM 3.3 mmol/L (3.5-5.1); SODIUM 138 mmol/L (136-145); UREA NITROGEN 13 mg/dL (7-18); eGFR NON AFRICAN AMERICAN > 90 mL/min (90-120)
--- NOTE | 2020-03-31 09:23 | NUR ---
Nutrition follow-up: Chart and labs reviewed. K still a little low; recommend K rider to replace TPN now at 60 ml/hr Will continue current TPN formula RDN following.
--- NOTE | 2020-03-31 14:50 | NUR ---
0700 REPORT RECEIEVED AND CARE ASSUMED OF PATIENT.... SEE FLOW SHEET FOR SHIFT ASSESMENT FINDINGS.. 1100 PALCED ON CPAP O2 TO TRACH 1400 CHG BATH PT WITH SMALL BROWN SOFT FORMED BM .. DRESSING ON BUTTOCKS FOR SKIN BREAKDOWN... 1430 PHYSICAL THERAPY IN AND SAT PATIENT ON SIDE OF BEDC.. PATIENT TOLERATED WELL
[2020-04-01] VITALS (21 sets, daily range): BP systolic 118–150; BP diastolic 64–84
[2020-04-01 04:16] LABS: BASOPHILS 0.2 % (0-2); EOSINOPHILS 1.3 % (0-7); HEMATOCRIT 30.5 % (36.0-48.0); HEMOGLOBIN 9.6 g/dL (12-16); IMMATURE GRANULOCYTES 5.9 % (0-5); LYMPHOCYTES 24.3 % (15-50); MCH 28.5 pg (26.0-34.0); MCHC 31.5 g/dL (31.0-37.0); MCV 90.5 fL (80.0-100.0); MEAN PLATELET VOLUME 8.6 fL (7.4-10.4); MONOCYTES 10.8 % (2-11); NEUTROPHILS 57.5 % (40-80); PLATELET COUNT 390 10x3/uL (130-400); RBC 3.37 10x6/uL (4.00-5.40); RDW 14.7 % (11.5-14.5); WBC 10.3 10x3/uL (4.8-10.8)
[2020-04-01 04:35] LABS: CALC OSMOLALITY 269 mosm/kg (275-300); CALCIUM 9.7 mg/dL (8.5-10.1); CARBON DIOXIDE 29.5 mmol/L (21.0-32.0); CHLORIDE - SERUM 99 mmol/L (98-107); CREATININE - SERUM 0.3 mg/dL (0.6-1.3); GLUCOSE 114 mg/dL (74-106); MAGNESIUM - SERUM 2.1 mg/dL (1.8-2.4); PHOSPHOROUS 2.4 mg/dL (2.5-4.9); POTASSIUM - SERUM 3.4 mmol/L (3.5-5.1); SODIUM 134 mmol/L (136-145); UREA NITROGEN 14 mg/dL (7-18); eGFR NON AFRICAN AMERICAN > 90 mL/min (90-120)
--- NOTE | 2020-04-01 10:48 | NUR ---
Nutrition follow-up: Pt remains trach to vent. TPN @ 60 ml/hr with intralipids 250 ml 20% Q 72 hours Pt has been sitting on side of bed with PT Labs reviewed New TPN ordered Recommend starting trickle feeds to stimulate gut; or place J-PEG to provide TF if aspiration is still a concern. RDN following.
--- NOTE | 2020-04-01 11:55 | NUR ---
ASSUMED CARE FOR THIS PT AT THIS TIME. BEDSIDE SHIFT REPORTING COMPLETED. WILL REVIEW CHART AND ORDERS AND BEGIN PLAN OF CARE.
--- NOTE | 2020-04-01 15:01 | NUR ---
STATES TO RESTART TUBE FEED VIA PEG TUBE AND SEE IF PT IS ABLE TO TOLERATE. RESTARTED PULMOCARE @20CC/HR. PT COMMUNICATED UNDERSTANDING TO CALL IF SHE FEELS REFLUX OR NAUSEATED. PT DENIED WANTING TO BE REPOSITIONED AT THIS TIME. NO CURRENT NEEDS. CL IN REACH, BED IN LOWEST, SIDE RAILS X2. WILL CPOC.
--- NOTE | 2020-04-01 17:03 | NUR ---
PT ACCEPTED INTO LTAC AND CAN GO IN THE AM. ACCEPTING FACILITY WOULD LIKE PT BY 10AM. WILL FILL OUT PCI FORM AND BEGIN DISCHARGE WORKUP. DISCUSSED WITH PT AND SHE COMMUNICATED THAT SHE UNDERSTANDS AND IS READY TO GO. ACCEPTING ROOM WILL BE #60. NOTIFIED PTS FAMILY. NO CURRENT NEEDS. WILL CTM.
--- NOTE | 2020-04-01 18:12 | NUR ---
PT TOLERATING TUBE FEEDING. NO RESIDUAL NOTED, PT DENIES ANY N/V. WILL KEEP AT 20CC AND SHE SHOULD GO TO LTACH TOMORROW. WILL PASS ON IN SHIFT REPORT.
--- NOTE | 2020-04-01 19:50 | MORECARE ---
CASE MANAGEMENT DISCHARGE SUMMARY PATIENT: DENNIS GREEN UNIT: [id number] ADM DATE: 02/09/20 AGE: 59 : 56 SEX: F ROOM/BED: D.2305 AUTHOR: RICKY,DOC PHYSICIAN: REFERRING PHYSICIAN: URBANO EDDY DO DATE OF SERVICE: 04/01/20 Discharge Plan Patient Name: DENNIS GREEN Facility: [facility]:[place] : 1960 Planned Disposition: Anticipated Discharge Date: Discharge Date: Expected LOS: Initial Reviewer: [email or web address] Initial Review Date: 02/09/2020 Generated: 04/01/20 8:49 pm Comments DCP- Discharge Planning Updated by [email or web address]: Samantha Navarrete on 04/01/20 6:[address] CM received notification that patient has been accepted and we have auth from insurance for LTACH at [facility]. Patient will go to room 6018 and they would like patient there by 10 am. CM will send updates in am. DCP- Discharge Planning Updated by [email or web address]: Samantha Navarrete on 03/28/20 3:[address] CM received notification from family to send referral to [facility] in . CM faxed referral packet to [facility]. CM will continue to follow and assist as needed with discharge planning needs. DCP- Discharge Planning Updated by [email or web address]: Samantha Navarrete on 03/28/20 3:[address] LATE ENTRY 03/27/20 CM notified that [place] [facility] was not in network with patient's insurance. CM called and spoke with insurance company and was able to get website to check status of LTACH's that are in network. CM let son know that LTACH was not in network and was given a list of in network facilities. CM awaiting decision on LTACH from family. DCP- Discharge Planning Updated by [email or web address]: Samantha Navarrete on 03/28/20 3:[address] LATE ENTRY 03/26/20 patient's COVID screen came back negative. CM sent updates to [facility] in [place]. CM notified LTACH of results and they are planning to send for auth. DCP- Discharge Planning Updated by [id number]: Samantha Navarrete on 03/25/20 4:[address] CM sent referral to [facility] in [place]. CM was notified at this time they do not have any COVID bed availability but if patient was negative then they would have bed availability in general public bed. Repeat COVID screen. CM will send updated COVID once available. CM discussed this with patient's son Elana. CM will continue to follow and assist as needed with discharge planning / needs. DCP- Discharge Planning Updated by [email or web address]: Evy Jason on 03/20/20 3:[address] CM CALLED TO VERIFY AREA OF SEARCH ? IF HE SAID [place]. HE WILL STILL DISCUSS WITH HIS SON. HE STATES THEY LIVE [place] [address] [place] AND [place] BUT ALL OF HIS DOCTORS IE. HIS CANCER DOCTOR IS IN [place]. HE PLANS TO DISCUSS WITH HIS SON AND ADVISE CM OF DECISION. LTAC IN [place] [facility] [phone] [facility] [place]- [phone] [facility] [phone]. CM AWAIT DECISION. DCP- Discharge Planning Updated by [id number]: Evy Jason on 03/20/20 1:[address] TELEPHONED AND SPOKE WITH PATIENT'S . GAVE UPDATE REGARDING REFERRALS TO LTAC. HER TYRELL DOES NOT WISH TO WIDEN SEARCH OUTSIDE OF THE IMMEDIARE AREA. HE WILL DISCUSS WITH ELANA (SON). DCP- Discharge Planning Updated by [id number]: Evy Jason on 03/19/20 1:[address] CM SPOKE WITH LORIN AT [facility]. THEY ARE NOT ACCEPTING COVID PATIENTS AT THIS TIME. [facility] NO [facility]S AVAILABLE. LONG WAITING LIST. [facility]ONED [facility]. LEFT VM AT [phone]. IF FAMILY AGREES TO WIDEN THE SEARCH, WILL FAX REFERRAL TO [phone]. SPOKE W/ DR THORNTON TO OBTAIN 20 DAY CERTIFICATION. SIGNATURE OBTAINED. FORM PLACED IN THE HARD COVER CHART. DCP- Discharge Planning Updated by [id number]: Nancy Chaparro on 03/18/20 3:[address] CM called and left message for Lorin with [facility] requesting update on status of referral. DCP- Discharge Planning Updated by [email or web address]: Elvin Medina on 03/17/20 3:[address] CM attempted to call spouse of patient (Tyrell) at [phone] to discuss LTAC options. CM attempted to call son, Elana at [phone], Elana's spouse answered and gave alternate number for Elana (number undisclosed) and an alternate number for Tyrell ([phone]). Spoke with Elana. Elana stated that TI [facility]quez is handling placement and has been working on attempts for [facility] [facility]. For continuity, this CM will notify active CM of correspondence and take no further action. CM will continue to follow and will assist as needed with dc plans/needs. DCP- Discharge Planning Updated by [email or web address]: Samantha Navarrete on 03/14/20 5:[address] CM received a message back from Elana her son to send referral packet to [facility]. SHAYNA completed. CM faxed packet to Lorin. CM will continue to follow and assist as needed with discharge planning / needs. DCP- Discharge Planning Updated by [id number]: Samantha Navarrete on 03/13/20 2:[address] CM has attempted to call and text patients son Elana [phone]. to give him the information on LTACH so that he can decide which facility he would like CM to send referral. CM left the information with nursing staff also incase he calls to check in on his mother. CM will continue to follow and assist as needed with discharge planning/ needs. DCP- Discharge Planning Updated by [email or web address]: Samantha Navarrete on 03/12/20 7:[address] LATE ENTRY 03/11/20 TI spoke with patient's son Elana [phone]. He requested for CM to find out if insurance will cover LTACH and what facilities are covered. CM spoke with rep at [facility] regarding coverage and according to the rep it should be a level 2 benefit and will be a 500.00 co pay and then 80% if family deductible has been met then will pay at 100%. As far as which facility as long as the facility takes [facility] of [place] then it will be covered per CM understanding. PA will be required prior to admit. Call ref # [id number]. CM will speak with Elana and convey the information for him to choose an LTACH. DCP- Discharge Planning Updated by [id number]: Samantha Navarrete on 03/08/20 8:[address] CM will contact family regarding LTACH placement on Wednesday. CM will need to check to see which facilities are taking COVID patients. CM will continue to follow and assist as needed with d/c planning DCP- Discharge Planning Updated by [id number]: Tamela Smith on 02/16/20 3:[address] CM contacted spouse, Tyrell Yoon @[phone], to discuss initial DC planning. Spouse is in agreement to proceed with the assessment. Patient is currently sedated and intubated on a mechanical vent. Per patient's spouse, patient lives independently in her home, with him. 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 [facility] [place]. HHS: No. DME: None. Emergency contact: Tyrell Karrie and (son) Elana Yoon #[phone]. Patient is Independent with all ADL's, medication management FITNESS CONSULTANT. CM discussed the availability of HH, Rehab, SNF, OP Therapy, DME services. Patient would benefit from Rehab or HHS upon DC. Spouse agrees to Rehab prior to returning home, if needed. Spouse denies hospitalization within the past 30 days. Spouse denies the use of community resources FITNESS CONSULTANT. Transportation at time of discharge: Spouse or son. CM will follow and assist PRN with DC needs/plans. DCPIA - Discharge Planning Initial Assessment Updated by [email or web address]: Tamela Smith on 02/16/20 4:05 pm * Is the patient Alert and Oriented? No * How many steps to enter\exit or inside your home? * PCP Unknown at present * Pharmacy [facility], [place] * Preadmission Environment Home with Family * ADLs Independent * Equipment None * Other Equipment NA * List name and contact numbers for known caregivers / representatives who currently or will assist patient after discharge: Tyrell Yoon (spouse) [phone] Elana Vasquezley (son) [phone] * Verbal permission to speak to the caregivers and representatives has been obtained from the patient. N/A * Community resources currently utilized None * Please name any agencies selected above. NA * Additional services required to return to the preadmission environment? Yes * Can the patient safely return to the preadmission environment? Yes * Has this patient been hospitalized within the prior 30 days at any hospital? No Coverage Notice Reviewer: [id number] Mykel Navarrete Notice Issued Date-Time: 03/14/2020 12:55 Notice Type: Patient Choice Letter Notice Delivered To: Family Member Relationship to Patient: Son Jersey Knitter Name: ELANA GREEN Delivery Method: HAND - Hand Delivered Carrie Days: Prior Verbal Notification: Yes Recipient Understood Notice: Yes Recipient Signature: Med Rec Note Co-signed by Attending: Coverage Notice Comment: Last DP export: 03/28/20 3:38 Patient Name: DENNIS GREEN Page 17569 at 1950 All edits/amendments must be made on the electronic document DICTATION DATE: 04/01/201949 SYSTEMS COORDINATOR: SHELBY 04/01/201949 RPT#: [id number] DC DATE: STATUS: ADM IN [facility] [address] [place] [address] END OF REPORT
[2020-04-02] VITALS (7 sets, daily range): BP systolic 119–145; BP diastolic 61–75
[2020-04-02 04:36] LABS: CALC OSMOLALITY 267 mosm/kg (275-300); CALCIUM 10.2 mg/dL (8.5-10.1); CARBON DIOXIDE 29.7 mmol/L (21.0-32.0); CHLORIDE - SERUM 100 mmol/L (98-107); GLUCOSE 127 mg/dL (74-106); MAGNESIUM - SERUM 2.2 mg/dL (1.8-2.4); PHOSPHOROUS 2.8 mg/dL (2.5-4.9); POTASSIUM - SERUM 3.8 mmol/L (3.5-5.1); SODIUM 133 mmol/L (136-145); UREA NITROGEN 13 mg/dL (7-18)
[2020-04-02 04:37] LABS: CREATININE - SERUM 0.4 mg/dL (0.6-1.3); eGFR NON AFRICAN AMERICAN > 90 mL/min (90-120)
--- NOTE | 2020-04-02 07:20 | NUR ---
Nutrition follow-up: Pulmocare started 04/[address] Nelson @ 20 ml/hr Pt currently tolerating Pt able to communicate if feeling refux or nausea RD recommends changing TF formula to Osmolite 1.5 dimas @ 20 ml/hr with increase to goal rate of 50 ml/hr and 25 ml H2O flush q hour Recommend tapering TPN. RDN following.
--- NOTE | 2020-04-02 09:33 | NUR ---
SPOKE WITH MELISSA, PATIENTS RINGS AND RADIO NOT SENT TO LTACH. MARCIANO WILL RN RELIEF CHARGE. FAMILY AWARE THAT PATIENT IS BEING TRANSPORTED. RN FACILITATED FACETIME WITH PATIENT AND FAMILY
--- NOTE | 2020-04-02 18:18 | MORECARE ---
CASE MANAGEMENT DISCHARGE SUMMARY PATIENT: DENNIS KHAN UNIT: [id number] ADM DATE: 02/09/20 AGE: 59 : 56 SEX: F ROOM/BED: D.2305 AUTHOR: RICKY,DOC PHYSICIAN: REFERRING PHYSICIAN: URBANO EDDY DO DATE OF SERVICE: 04/02/20 Discharge Plan Patient Name: DENNIS KHAN Facility: [facility]:[place] : 1960 Planned Disposition: Anticipated Discharge Date: Discharge Date: 04/02/2020 Expected LOS: Initial Reviewer: [id number] Initial Review Date: 02/09/2020 Generated: 04/02/20 7:18 pm Comments DCP- Discharge Planning Updated by [email or web address]: Samantha Navarrete on 04/01/20 6:[address] CM received notification that patient has been accepted and we have auth from insurance for LTACH at [facility]. Patient will go to room 6018 and they would like patient there by 10 am. CM will send updates in am. DCP- Discharge Planning Updated by [email or web address]: Samantha Navarrete on 03/28/20 3:[address] CM received notification from family to send referral to [facility] in . CM faxed referral packet to [facility]. CM will continue to follow and assist as needed with discharge planning needs. DCP- Discharge Planning Updated by [id number]: Samantha Navarrete on 03/28/20 3:[address] LATE ENTRY 03/27/20 CM notified that [place] [facility] was not in network with patient's insurance. CM called and spoke with insurance company and was able to get website to check status of LTACH's that are in network. CM let son know that LTACH was not in network and was given a list of in network facilities. CM awaiting decision on LTACH from family. DCP- Discharge Planning Updated by [email or web address]: Samantha Navarrete on 03/28/20 3:[address] LATE ENTRY 03/26/20 patient's COVID screen came back negative. CM sent updates to [facility] in [place]. CM notified LTACH of results and they are planning to send for auth. DCP- Discharge Planning Updated by [email or web address]: Samantha Navarrete on 03/25/20 4:[address] CM sent referral to [facility] in [place]. CM was notified at this time they do not have any COVID bed availability but if patient was negative then they would have bed availability in general public bed. Repeat COVID screen. CM will send updated COVID once available. CM discussed this with patient's son Elana. CM will continue to follow and assist as needed with discharge planning / needs. DCP- Discharge Planning Updated by [id number]: Evy Jason on 03/20/20 3:[address] CM CALLED TO VERIFY AREA OF SEARCH ? IF HE SAID [place]. HE WILL STILL DISCUSS WITH HIS SON. HE STATES THEY LIVE ABOUT [address] [place]WE[place] BUT ALL OF HIS DOCTORS IE. HIS CANCER DOCTOR IS IN [place]. HE PLANS TO DISCUSS WITH HIS SON AND ADVISE CM OF DECISION. LTAC IN [place] PER [facility] [phone] [facility]- [phone] [facility] [phone]. CM AWAIT DECISION. DCP- Discharge Planning Updated by [email or web address]: Evy Jason on 03/20/20 1:[address] TELEPHONED AND SPOKE WITH PATIENT'S . GAVE UPDATE REGARDING REFERRALS TO LTAC. HER TYRELL DOES NOT WISH TO WIDEN SEARCH OUTSIDE OF THE IMMEDIARE AREA. HE WILL DISCUSS WITH ELANA (SON). DCP- Discharge Planning Updated by [email or web address]: Evy Jason on 03/19/20 1:[address] CM SPOKE WITH LORIN AT [facility]. THEY ARE NOT ACCEPTING COVID PATIENTS AT THIS TIME. CM SPOKE W/ [facility]. NO BEDS AVAILABLE. LONG WAITING LIST. TELEPHONED IVORY AT [facility]. LEFT VM AT [phone]. IF FAMILY AGREES TO WID[place] THE SEARCH, WILL FAX REFERRAL TO [phone]. SPOKE W/ DR THORNTON TO OBTAIN 20 DAY CERTIFICATION. SIGNATURE OBTAINED. FORM PLACED IN THE HARD COVER CHART. DCP- Discharge Planning Updated by [email or web address]: Nancy Chaparro on 03/18/20 3:[address] CM called and left message for Lorin with [facility] requesting update on status of referral. DCP- Discharge Planning Updated by [id number]: Elvin Javiernes on 03/17/20 3:[address] CM attempted to call spouse of patient (Tyrell) at [phone] to discuss LTAC options. CM attempted to call son, Elana at [phone], Elana's spouse answered and gave alternate number for Elana (number undisclosed) and an alternate number for Tyrell ([phone]). Spoke with Elana. Elana stated that TI Henriquez is handling placement and has been working on attempts for [facility] vs [facility]. For continuity, this CM will notify active CM of correspondence and take no further action. CM will continue to follow and will assist as needed with dc plans/needs. DCP- Discharge Planning Updated by [email or web address]: Samantha Navarrete on 03/14/20 5:[address] CM received a message back from Elana her son to send referral packet to [facility]. SHAYNA completed. CM faxed packet to Lorin. CM will continue to follow and assist as needed with discharge planning / needs. DCP- Discharge Planning Updated by [email or web address]: Samantha Navarrete on 03/13/20 2:[address] CM has attempted to call and text patients son Elana [phone]. to give him the information on LTACH so that he can decide which facility he would like CM to send referral. CM left the information with nursing staff also incase he calls to check in on his mother. CM will continue to follow and assist as needed with discharge planning/ needs. DCP- Discharge Planning Updated by [email or web address]: Samantha Navarrete on 03/12/20 7:[address] LATE ENTRY 03/11/20 TI spoke with patient's son Elana [phone]. He requested for CM to find out if insurance will cover LTACH and what facilities are covered. TI spoke with rep at [facility] regarding coverage and according to the rep it should be a level 2 benefit and will be a 500.00 co pay and then 80% if family deductible has been met then will pay at 100%. As far as which facility as long as the facility takes [facility] of [place] then it will be covered per CM understanding. PA will be required prior to admit. Call ref # [id number]. CM will speak with Elana and convey the information for him to choose an LTACH. DCP- Discharge Planning Updated by [email or web address]: Samantha Navarrete on 03/08/20 8:[address] CM will contact family regarding LTACH placement on Wednesday. CM will need to check to see which facilities are taking COVID patients. CM will continue to follow and assist as needed with d/c planning DCP- Discharge Planning Updated by [email or web address]: Tamela Smith on 02/16/20 3:[address] CM contacted spouse, Tyrell Yoon @[phone], to discuss initial DC planning. Spouse is in agreement to proceed with the assessment. Patient is currently sedated and intubated on a mechanical vent. Per patient's spouse, patient lives independently in her home, with him. 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 [facility] [place]. HHS: No. DME: None. Emergency contact: Tyrell Karrie and (son) Elana Yoon #[phone]. Patient is Independent with all ADL's, medication management SUCTION ROLLER. CM discussed the availability of HH, Rehab, SNF, OP Therapy, DME services. Patient would benefit from Rehab or HHS upon DC. Spouse agrees to Rehab prior to returning home, if needed. Spouse denies hospitalization within the past 30 days. Spouse denies the use of community resources SUCTION ROLLER. Transportation at time of discharge: Spouse or son. CM will follow and assist PRN with DC needs/plans. DCPIA - Discharge Planning Initial Assessment Updated by [email or web address]: Tamela Smith on 02/16/20 4:05 pm * Is the patient Alert and Oriented? No * How many steps to enter\exit or inside your home? * PCP Unknown at present * Pharmacy [facility], [place] * Preadmission Environment Home with Family * ADLs Independent * Equipment None * Other Equipment NA * List name and contact numbers for known caregivers / representatives who currently or will assist patient after discharge: Tyrell Yoon (spouse) [phone] Elana Khan (son) [phone] * Verbal permission to speak to the caregivers and representatives has been obtained from the patient. N/A * Community resources currently utilized None * Please name any agencies selected above. NA * Additional services required to return to the preadmission environment? Yes * Can the patient safely return to the preadmission environment? Yes * Has this patient been hospitalized within the prior 30 days at any hospital? No Coverage Notice Reviewer: [id number] Mykel Navarrete Notice Issued Date-Time: 03/14/2020 12:55 Notice Type: Patient Choice Letter Notice Delivered To: Family Member Relationship to Patient: Son Windows Server Architect Name: ELANA KHAN Delivery Method: HAND - Hand Delivered Acrrie Days: Prior Verbal Notification: Yes Recipient Understood Notice: Yes Recipient Signature: Med Rec Note Co-signed by Attending: Coverage Notice Comment: Last DP export: 04/01/20 6:50 Patient Name: DENNIS KHAN Page [id number] at 1818 All edits/amendments must be made on the electronic document DICTATION DATE: 04/02/201817 GENERAL OPHTHALMOLOGIST: SHELBY 04/02/201817 RPT#: [id number] DC DATE:04/02/20 STATUS: DIS IN [facility] [address] [place] [address] END OF REPORT
== END 2020-04-02 11:29 | DRG 4 ==
LOC: D.ER 20:02 → D.ICU 21:51
PROVIDERS: Emergency Medicine; Family Medicine; Internal Medicine Pulmonary Disease; ADMIT Family Medicine; ATTEND Family Medicine
PROC: XW033E5 Introduction of Remdesivir Anti-infective into Peripheral Vein, Percutaneous Approach, New Technology Group 5 (ICD-10-PCS; 2020-02-09)
PROC: 5A1955Z Respiratory Ventilation, Greater than 96 Consecutive Hours (ICD-10-PCS; principal; 2020-02-11)
PROC: 0BH17EZ Insertion of Endotracheal Airway into Trachea, Via Natural or Artificial Opening (ICD-10-PCS; 2020-02-11)
PROC: 05H633Z Insertion of Infusion Device into Left Subclavian Vein, Percutaneous Approach (ICD-10-PCS; 2020-02-11)
PROC: 03HC33Z Insertion of Infusion Device into Left Radial Artery, Percutaneous Approach (ICD-10-PCS; 2020-02-11)
PROC: 0B9J8ZX Drainage of Left Lower Lung Lobe, Via Natural or Artificial Opening Endoscopic, Diagnostic (ICD-10-PCS; 2020-02-24)
PROC: 0B9F8ZX Drainage of Right Lower Lung Lobe, Via Natural or Artificial Opening Endoscopic, Diagnostic (ICD-10-PCS; 2020-02-24)
PROC: 03HB33Z Insertion of Infusion Device into Right Radial Artery, Percutaneous Approach (ICD-10-PCS; 2020-03-01)
PROC: 05PYX3Z Removal of Infusion Device from Upper Vein, External Approach (ICD-10-PCS; 2020-03-01)
PROC: 05H633Z Insertion of Infusion Device into Left Subclavian Vein, Percutaneous Approach (ICD-10-PCS; 2020-03-01)
PROC: 0B113F4 Bypass Trachea to Cutaneous with Tracheostomy Device, Percutaneous Approach (ICD-10-PCS; 2020-03-14)
PROC: 0DH63UZ Insertion of Feeding Device into Stomach, Percutaneous Approach (ICD-10-PCS; 2020-03-14)
PROC: 0B9J8ZX Drainage of Left Lower Lung Lobe, Via Natural or Artificial Opening Endoscopic, Diagnostic (ICD-10-PCS; 2020-03-17)
PROC: 0B9F8ZX Drainage of Right Lower Lung Lobe, Via Natural or Artificial Opening Endoscopic, Diagnostic (ICD-10-PCS; 2020-03-17)
DX: A41.89 Other specified sepsis (principal); U07.1 COVID-19; J12.89 Other viral pneumonia; J96.01 Acute respiratory failure with hypoxia; J15.212 Pneumonia due to Methicillin resistant Staphylococcus aureus; R53.2 Functional quadriplegia; J69.0 Pneumonitis due to inhalation of food and vomit; N39.0 Urinary tract infection, site not specified; D68.59 Other primary thrombophilia; J95.851 Ventilator associated pneumonia; R78.81 Bacteremia; I10 Essential (primary) hypertension; K21.9 Gastro-esophageal reflux disease without esophagitis; F41.8 Other specified anxiety disorders; Z87.442 Personal history of urinary calculi; E66.9 Obesity, unspecified; Z68.35 Body mass index [BMI] 35.0-35.9, adult; R00.1 Bradycardia, unspecified; E88.09 Other disorders of plasma-protein metabolism, not elsewhere classified; R50.9 Fever, unspecified; B95.2 Enterococcus as the cause of diseases classified elsewhere; D50.9 Iron deficiency anemia, unspecified; G72.9 Myopathy, unspecified; R00.0 Tachycardia, unspecified; B96.5 Pseudomonas (aeruginosa) (mallei) (pseudomallei) as the cause of diseases classified elsewhere

== ENCOUNTER → 2020-08-20 12:02 | Outpatient (CLI) | payer BC ==
[2020-05-24 11:30] VITALS: BMI 29.4
[~2020-08-20 12:02] MED LIST changes: +ACETAMINOPHEN325 MG PO; +ATIVAN0.5 MG PO; +GALZIN50 MG PO; +IPRAT-ALBUT 0.5-3 ML UPD; +NEURONTIN 300300 MG PO; +PEPCID40 MG PO; +PRINIVIL10 MG PO; +VITAMIN D1000 UNI2 PO
== END | disposition home or self-care (01) ==
LOC: D.LAB 12:02
PROVIDERS: ATTEND Internal Medicine Pulmonary Disease
DX: R06.00 Dyspnea, unspecified (principal); Z11.52 Encounter for screening for COVID-19

== ENCOUNTER → 2020-08-23 08:58 | Outpatient (CLI) | payer BC ==
[2020-05-24 11:30] VITALS: BMI 29.4
== END | disposition home or self-care (01) ==
LOC: D.RT 08:58
PROVIDERS: ATTEND Internal Medicine Pulmonary Disease
DX: R06.00 Dyspnea, unspecified (principal)